=== PATIENT | female | born 1940 | race Caucasian/White ===

== ENCOUNTER → 2017-05-06 | Outpatient (CLI) | payer MEDICARE, BC ==
--- NOTE | 2017-05-06 15:45 | US ---
EXAMINATION TYPE: US kidneys/renal and bladder DATE OF EXAM: 05/06/2017 COMPARISON: NONE CLINICAL HISTORY: R94.4 Abnormal Renal Function. Difficult exam due to overlying bowel gas EXAM MEASUREMENTS: Right Kidney: 8.6 x 3.9 x 4.5 cm Left Kidney: 8.8 x 4.4 x 3.8 cm Right Kidney: Somewhat diminutive in size. No hydronephrosis. Multiple hypoechoic areas visualized, l argest measuring 1.1 x 1.3 x 1.1 cm Left Kidney: Diminutive in size. No hydronephrosis. Multiple hypoechoic areas visualized, largest jayjay suring 1.8 x 1.8 x 2.0 cm Bladder: wnl Bilateral Jets seen: Yes IMPRESSION: 1. Kidneys are somewhat diminutive in size with no hydronephrosis or nephrolithiasis. 2. Multiple hypoechoic lesions bilaterally majority which are too small to characterize. The largest measures 1.8 cm involving the left kidney compatible with a simple cyst.
== END | disposition home or self-care (01) ==
LOC: RADUSWWP 14:14
PROVIDERS: ATTEND Internal Medicine Hematology & Oncology
DX: N28.89 Other specified disorders of kidney and ureter (principal); R94.4 Abnormal results of kidney function studies
CPT/HCPCS: 76770

== ENCOUNTER 2022-06-23 11:16 | Day surgery (SDC) | payer MEDICARE ==
[2022-06-19 09:32] VITALS: BMI 24.2
[~2022-06-23 11:16] MED LIST: LACTATED RINGERS 1,000 ML IV SCH
[2022-06-23 11:54] VITALS: TEMP 97.8
[2022-06-23] MEDS ORDERED: PROPOFOL 10 MG/ML 20 ML VIAL IV ONE (12:05)
[2022-06-23 13:17] VITALS: BP 130/61; PULSE 62; RESP 18
[2022-06-23 13:32] LABS: Basophils # (A) 0.1 k/uL (0-0.2); Basophils % (A) 1 %; Eosinophils # (A) 0.2 k/uL (0-0.7); Eosinophils % (A) 3 %; HCT 41.7 % (34.0-46.0); HGB 13.8 gm/dL (11.4-16.0); Lymphocytes # (A) 1.8 k/uL (1.0-4.8); Lymphocytes % (A) 25 %; MCH 31.9 pg (25.0-35.0); MCHC 33.1 g/dL (31.0-37.0); MCV 96.3 fL (80.0-100.0); Mean Platelet Volume 8.5; Monocytes # (A) 0.6 k/uL (0-1.0); Monocytes % (A) 9 %; Neutrophils # (A) 4.2 k/uL (1.3-7.7); Neutrophils % (A) 60 %; Platelet Count 261 k/uL (150-450); RBC 4.32 m/uL (3.80-5.40); RDW 15.3 % (11.5-15.5); Reticulocyte % 1.3 % (0.5-2.0)
--- NOTE | 2022-06-23 20:19 | OP ---
OPERATIVE REPORT DATE OF SERVICE : 06/23/2022 PROCEDURE PERFORMED: Bone marrow aspirate and biopsy. INDICATION: The patient is known to have multiple myeloma, is to evaluate for minimum residual disease. DESCRIPTION OF PROCEDURE: After obtaining informed consent from the patient, the procedure was performed in the endoscopy suite under general anesthesia performed by anesthesia team. The patient was put in the left lateral decubitus position. The right posterior superior iliac crest was localized. The skin was cleansed with ChloraPrep, all sterile procedures were followed. 2 mL of 2% Xylocaine was used for local anesthetic. Monoject needle was inserted, about 20 mL aspirate and 2 cm core biopsy was obtained without any difficulties. Pressure applied afterwards. There was negligible blood loss. The patient tolerated the procedure very well without any immediate complications. MMODL / IJN: [id number] /
== END 2022-06-23 13:20 | disposition home or self-care (01) ==
LOC: OR 11:16
PROVIDERS: ATTEND Internal Medicine Hematology & Oncology
DX: C90.00 Multiple myeloma not having achieved remission (principal); I48.91 Unspecified atrial fibrillation; E03.9 Hypothyroidism, unspecified; D64.9 Anemia, unspecified; Z79.01 Long term (current) use of anticoagulants; Z79.899 Other long term (current) drug therapy; Z98.51 Tubal ligation status; Z98.890 Other specified postprocedural states; Z80.8 Family history of malignant neoplasm of other organs or systems; Z87.891 Personal history of nicotine dependence; Z71.89 Other specified counseling
CPT/HCPCS: 85025; 85045; 38222; J2704

== ENCOUNTER → 2022-08-08 | Outpatient (CLI) | payer MEDICARE ==
--- NOTE | 2022-08-08 15:44 | MR ---
EXAMINATION TYPE: MR brain wo con DATE OF EXAM: 08/08/2022 COMPARISON: NONE HISTORY: LUNG CA JULY 2022 TECHNIQUE: Multiplanar, multisequence imaging of the brain and brainstem is performed without IV cont rast. FINDINGS: Diffusion weighted images demonstrate no evidence of a recent infarct or other diffusion abnormality. There is mild to moderate ventricular and sulcal prominence. Some confluent areas of T2 hyperintense signal seen in the periventricular white matter. Old infarct left cerebellar hemisphere axial image 7 inferiorly is noted. Midline structures demonstrate normal morphology. The craniocervical junction appears within normal limits. Normal vascular flow voids are present. The visualized sinuses are clear and the globes are i ntact. Nasal septum is deviated to left of midline. IMPRESSION: No obvious focal T2 hyperintense focus or edema to suggest larger metastatic lesion to th e brain. Suboptimal without IV contrast. [id number] diffuse cerebral atrophy and mild chronic s mall vessel ischemic change is identified. 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
== END | disposition home or self-care (01) ==
LOC: RADMRIMAIN 14:16
PROVIDERS: ATTEND Internal Medicine Hematology & Oncology
DX: C34.31 Malignant neoplasm of lower lobe, right bronchus or lung (principal); G31.9 Degenerative disease of nervous system, unspecified; I67.82 Cerebral ischemia; Z86.73 Personal history of transient ischemic attack (TIA), and cerebral infarction without residual deficits
CPT/HCPCS: 70551

== ENCOUNTER → 2022-09-11 | Outpatient (CLI) | payer MEDICARE ==
--- NOTE | 2022-09-11 16:12 | XR ---
EXAMINATION TYPE: XR chest 2V DATE OF EXAM: 09/11/2022 COMPARISON: 07/22/2010, 09/01/2022 HISTORY: 82-year-old female J90, pleural effusion TECHNIQUE: PA and lateral views FINDINGS: The large right sided joint effusion. This seems to have some mass effect on to the heart with left s hift. Remainder of the lungs appear clear. Right heart margin obscured and heart size cannot be accur ately assessed. IMPRESSION: Ongoing large right pleural effusion with some mass effect causing leftward cardiac shift.
== END | disposition home or self-care (01) ==
LOC: LABWHC1 10:11
PROVIDERS: ATTEND Thoracic Surgery (Cardiothoracic Vascular Surgery)
DX: J90 Pleural effusion, not elsewhere classified (principal)
CPT/HCPCS: 71046

== ENCOUNTER 2022-09-17 10:41 | Day surgery (SDC) | payer MEDICARE ==
[2022-09-12 12:06] VITALS: BMI 22.6
[~2022-09-17 10:41] MED LIST changes: +HYDROmorphone 0.5 MG/0.5 ML SYRINGE IVP PRN; +LIDOCAINE 1% (10MG/ML) FOR IV START INTRADERMA PRN; +ONDANSETRON 4 MG/2 ML VIAL IVP ONE
[2022-09-17 11:23] VITALS: TEMP 97.2
[2022-09-17] MEDS ORDERED: KETAMINE 10 MG/ML 20 ML VIAL ONE (13:01)
[2022-09-17] MEDS ORDERED: fentaNYL (PF) 50 MCG/ML 2 ML AMP ONE (13:01)
[2022-09-17] MEDS ORDERED: MIDAZOLAM 2 MG/2 ML VIAL ONE (13:01)
[2022-09-17] MEDS ORDERED: PROPOFOL 10 MG/ML 20 ML VIAL IV ONE (13:01)
[2022-09-17] MEDS ORDERED: LIDOCAINE 1% INJ 10MG/ML (20 ML MDV) SQ ONE ×2 (13:16)
[2022-09-17 13:49] VITALS: RESP 12
--- NOTE | 2022-09-17 14:10 | XR ---
EXAMINATION TYPE: XR chest 1V portable DATE OF EXAM: 09/17/2022 2:02 PM COMPARISON: Chest radiographs from 09/11/2022 TECHNIQUE: XR chest 1V portable Frontal view of the chest. CLINICAL INDICATION:Female, 82 years old with history of Pleural Catheter placement; FINDINGS: Lungs/Pleura: There is no evidence of pleural effusion, focal consolidation, or pneumothorax. Pulmonary vascularity: Unremarkable. Heart/mediastinum: Cardiomediastinal silhouette is enlarged and stable. Atherosclerotic calcificatio ns are seen in the aorta. Musculoskeletal: No acute osseous pathology. Other findings: None Lines/Tubes: Right thoracotomy tube is present with evidence of pneumothorax and pleural effusion. There is atelec tasis changes.. IMPRESSION: New Moderate right pleural effusion with pneumothorax. Chest tube in place.
--- NOTE | 2022-09-17 14:13 | FL ---
Intraoperative/procedural fluoroscopic services were provided. Total fluoroscopy time is 2 seconds wi th a total of 2 submitted images to PACS. Please see the operative/procedural note for further detail s. DAP: 0.1828 mGym2
[2022-09-17 14:41] VITALS: BP 121/63; PULSE 73
--- NOTE | 2022-09-17 15:37 | P.OP ---
Date of Procedure: 09/17/22 Preoperative Diagnosis: Recurrent pleural effusion right Postoperative Diagnosis: Same Procedure(s) Performed: Right Pleurx catheter placement with fluoroscopy Implants: Pleurx catheter Anesthesia: MAC Surgeon: Michael Wagoner Estimated Blood Loss (ml): 2 Pathology: none sent Condition: stable Disposition: PACU Indications for Procedure: 82-year-old female with recurrent right pleural effusion. 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 He was recently drained for over a liter of fluid at [facility]. Her fluid has recurred. She is not yet severely symptomatic. Elective Pleurx catheter was recommended for symptom control, palliation and treatment of recurrent pleural effusion. Operative Findings: 1800 mL of serosanguineous fluid was drained. Description of Procedure: Patient was brought to the operating room placed supine on the operating table. The right chest was sterilely prepped and draped. One percent lidocaine anesthesia was used. Right pleural space was punctured with a 18-gauge needle and guidewire threaded into the right pleural space under fluoroscopic guidance. This site was enlarged to just over a centimeter. Counterincision was made in the right upper quadrant less than a centimeter. Pleurx catheter was tunneled from the right upper quadrant incision to the chest incision and the cuff was secured under the skin by the exit site. Introducer and dilator were placed over the wire under fluoroscopic visualization through the entry site. Dilator and guidewire were removed and the purse catheter was threaded into the chest t hrough the introducer sheath. The introducer sheath was then split and removed. Fluoroscopy demonstrated good positioning of the Pleurx catheter in the right pleural space. Purse catheter was connected to suction. Entry site was closed with 4-0 Vicryl and skin glue. Purse catheter was secured at the exit site with 2-0 silk suture. On completion of evacuation of the fluid, Pleurx catheter was disconnected from suction and capped. Standard Pleurx dressing was placed. Fluoroscopy demonstrated complete clearance of fluid however the right lower lobe was trapped and there was a basilar pneumothorax ex-vacuo.
== END 2022-09-17 14:54 | disposition home health service (06) ==
LOC: OR 10:41
PROVIDERS: ATTEND Thoracic Surgery (Cardiothoracic Vascular Surgery)
DX: J90 Pleural effusion, not elsewhere classified (principal); I12.9 Hypertensive chronic kidney disease with stage 1 through stage 4 chronic kidney disease, or unspecified chronic kidney disease; N18.4 Chronic kidney disease, stage 4 (severe); I48.91 Unspecified atrial fibrillation; E78.5 Hyperlipidemia, unspecified; E03.9 Hypothyroidism, unspecified; Z87.891 Personal history of nicotine dependence; Z98.890 Other specified postprocedural states; Z79.899 Other long term (current) drug therapy
CPT/HCPCS: 71045; 32551; J2250; J2405; J0690; J2001; J3010; J2704

== ENCOUNTER 2022-11-11 09:27 | Inpatient (IN) | payer MEDICARE ==
[2022-11-11] MEDS ORDERED: MORPHINE SULFATE 2 MG/ML SYRINGE IVP STA (09:54)
[2022-11-11 10:23] LABS: Basophils # (A) 0.1 k/uL (0-0.2); Basophils % (A) 1 %; Eosinophils % (A) 0 %; HCT 32.3 % (34.0-46.0); HGB 10.1 gm/dL (11.4-16.0); Hypochromasia Moderate; Lymphocytes # (A) 0.5 k/uL (1.0-4.8); Lymphocytes % (A) 5 %; MCH 29.9 pg (25.0-35.0); MCHC 31.3 g/dL (31.0-37.0); MCV 95.5 fL (80.0-100.0); Mean Platelet Volume 7.3; Monocytes # (A) 0.5 k/uL (0-1.0); Monocytes % (A) 5 %; Neutrophils # (A) 9.3 k/uL (1.3-7.7); Neutrophils % (A) 89 %; Platelet Count 438 k/uL (150-450); RBC 3.39 m/uL (3.80-5.40); RDW 14.7 % (11.5-15.5); WBC 10.4 k/uL (3.8-10.6)
[2022-11-11 10:28] LABS: ALT 22 U/L (4-34); AST 31 U/L (14-36); African American GFR (CKD) 41 (>60 ml/min/1.73 sqM); Albumin 3.6 g/dL (3.5-5.0); Alkaline Phosphatase 66 U/L (38-126); Anion Gap 9 mmol/L; Blood Urea Nitrogen 35 mg/dL (7-17); Calcium 9.2 mg/dL (8.4-10.2); Carbon Dioxide 25 mmol/L (22-30); Chloride 102 mmol/L (98-107); Glucose 123 mg/dL (74-99); Non-African American GFR(CKD) 36 (>60 ml/min/1.73 sqM); Potassium 4.9 mmol/L (3.5-5.1); Sodium 136 mmol/L (137-145); Total Bilirubin 0.6 mg/dL (0.2-1.3); Total Protein 7.2 g/dL (6.3-8.2)
[2022-11-11 10:34] LABS: INR 1.1 (<1.2); Partial Thromboplastin Time 26.2 sec (22.0-30.0); Prothrombin Time 11.2 sec (9.0-12.0)
[2022-11-11 10:36] LABS: NT-Pro-B-Type Natriuretic Pept 12200 pg/mL
--- NOTE | 2022-11-11 10:43 | XR ---
EXAMINATION TYPE: XR chest 2V DATE OF EXAM: 11/11/2022 COMPARISON: 09/17/2022 HISTORY: Shortness of breath TECHNIQUE: Frontal and lateral views of the chest are obtained. FINDINGS: Scattered senescent parenchymal changes noted. Hyperinflation compatible with COPD. Right-sided chest tube is noted to be in place. Right basilar opacity with air-fluid level seen sharonda tible with hydropneumothorax. Right apical hydropneumothorax noted as well. The left lung is clear. Heart size is stable. Mediastinal structures are stable and grossly unremarkable. No evidence for hilar prominence. Degenerative changes dorsal spine. IMPRESSION: 1. . Right basilar opacity with air-fluid level seen compatible with hydropneumothorax. Right apical hydropneumothorax noted as well.
[2022-11-11] MEDS ORDERED: NALOXONE 0.4 MG/ML 1 ML VIAL IV PRN (11:22)
--- NOTE | 2022-11-11 11:25 | ED ---
General Adult HPI - General Chief complaint: Chest Pain Stated complaint: Chest Pain Time Seen by Provider: 11/11/22 09:44 Source: patient Mode of arrival: EMS Limitations: no limitations - History of Present Illness Initial comments: Patient is a 82-year-old female who presents emergency Department complaining of atypical chest pain. States started this morning and was associated with shortness of breath. 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 Is chronically on blood thinning medication for A. fib. Has a history of hypertension as well. Describes the pain as substernal a right sided and pressure-like. Worse with inspiration. States she feels like she can't catch her breath. States is identical pain is when she required thoracentesis previously. She did have a thoracentesis done outpatient tomorrow however did not think she could wait which is why she presents for evaluation at this time. Has no other acute complaints. - Related Data Home Medications Medication Instructions Recorded Confirmed Apixaban [Eliquis] 5 mg PO BID 06/19/22 11/11/22 Calcium Citrate/Vitamin D3 1 tab PO DAILY 06/19/22 11/11/22 [Calcium Cit 315-Vit D3 6.25 Mcg (250 Iu)] Cholecalciferol [Vitamin D3 (25 25 mcg PO DAILY 06/19/22 11/11/22 Mcg = 1000 Iu)] Cyanocobalamin (Vitamin B-12) 1,000 mcg PO DAILY 06/19/22 11/11/22 [Vitamin B-12] Levothyroxine Sodium [Synthroid] 150 mcg PO DAILY 06/19/22 11/11/22 Magnesium Oxide [Mag-Ox] 400 mg PO BID 06/19/22 11/11/22 Multivit-Min/Iron/Folic/Lutein 1 tab PO DAILY 06/19/22 11/11/22 [Centrum Silver Women Tablet] Simvastatin [Zocor] 10 mg PO Q48H 06/19/22 11/11/22 Sodium Bicarbonate Tab 650 mg PO DAILY 06/19/22 11/11/22 amLODIPine [Norvasc] 10 mg PO DAILY 06/19/22 11/11/22 calcitrioL [Calcitriol] 0.5 mcg PO SUTH 06/19/22 11/11/22 Albuterol Sulfate [Albuterol 2 puff PO RT-Q6H PRN 11/11/22 11/11/22 Sulfate Hfa] Betamethasone Dipropionate 1 applic TOPICAL BID 11/11/22 11/11/22 [Diprolene AF 0.05% Cream] Mv-Mn/Om3/Dha/Epa/Fish/Lut/Isaiah 1 cap PO DAILY 11/11/22 11/11/22 [Ocuvite Adult 50 Plus Softgel] Pembrolizumab [Keytruda] 200 mg IV Q21D 11/11/22 11/11/22 Allergies Allergy/AdvReac Type Severity Reaction Status Date / Time No Known Allergies Allergy Verified 11/11/22 09:34 Review of Systems ROS Statement: Those systems with pertinent positive or pertinent negative responses have been documented in the HPI. Review of Systems: CONST: Denies fever EYES: Denies blurry vision ENT: Denies nasal congestion C/V: Endorses chest discomfort RESP: Endorses shortness of breath GI: Denies abdominal pain : Denies dysuria SKIN: Denies rash. MSK: Denies joint pain. NEURO: Denies headache ROS Other: All systems not noted in ROS Statement are negative. 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 History of Any Multi-Drug Resistant Organisms: None Reported Past Surgical History: Tubal Ligation Additional Past Surgical History / Comment(s): RIGHT ANKLE FX SURGERY WITH HARDWARE, CATARACTS, BONE MARROW BX'S .,STEM CELL TRANSPLANT 2010., THORACENTESIS X2 Past Anesthesia/Blood Transfusion Reactions: No Reported Reaction Past Psychological History: No Psychological Hx Reported Smoking Status: Former smoker Past Alcohol Use History: Occasional Past Drug Use History: None Reported - Past Family History Father Family Medical History: Cancer Additional Family Medical History / Comment(s): LUNG CANCER General Exam - General Exam Comments Initial Comments: General: Appears in no acute distress. HEAD: Normal with no signs of head trauma. EYES: PERRLA, EOMI, conjunctiva normal, no discharge. ENT: Hearing grossly intact, normal oropharynx. RESPIRATORY: Decreased breath sounds over the right inferior lung field. No obvious wheeze. No respiratory distress. Mild hypoxia. C/V: Regular rate and rhythm. S1 and S2 auscultated, no edema, peripheral pulses 2+ and intact throughout ABD: Abd is soft, nontender, nondistended EXT: Normal range of motion, no obvious deformity SKIN: No rashes or lesions observed on exposed skin. NEURO: Alert and oriented x 4. Cranial nerves II-XII intact. No focal sensory or strength deficits. Limitations: no limitations Course Vital Signs 11/11/22 11/11/22 11/11/22 09:31 10:00 10:19 Temperature 98.1 F Pulse Rate 98 76 84 Respiratory 18 17 18 Rate Blood Pressure 117/62 117/62 110/67 O2 Sat by Pulse 93 L 98 95 Oximetry 11/11/22 12:00 Temperature Pulse Rate 93 Respiratory 13 Rate Blood Pressure 94/64 O2 Sat by Pulse 97 Oximetry Medical Decision Making - Medical Decision Making Was pt. sent in by a medical professional or institution (, PA, ASSISTANT CUSTOMER SERVICE MANAGER, urgent ca re, hospital, or residential...) When possible be specific @ -No Did you speak to anyone other than the patient for history (EMS, parent, family, police, friend...)? What history was obtained from this source @ -No Did you review nursing and triage notes (agree or disagree)? Why? @ -I reviewed and agree with nursing and triage notes Were old charts reviewed (outside hosp., previous admission, EMS record, old EKG, old radiological studies, urgent care reports/EKG's, residential records)? Report findings @ -Old charts reviewed including imaging. Differential Diagnosis (chest pain, altered mental status, abdominal pain women, abdominal pain men, vaginal bleeding, weakness, fever, dyspnea, syncope, headache, dizziness, GI bleed, back pain, seizure, CVA, palpatations, mental health, musculoskeletal)? @ -Differential Chest Pain: Stable Angina, Unstable Angina, STEMI, NSTEMI Aortic Dissection, Pneumothorax, Musculoskeletal, Esophageal Spasm GERD, Cholecystitis, Pancreatitis, Zoster, this is not meant to be an all-inclusive list. EKG interpreted by me (3pts min.). @ -As above X-rays interpreted by me (1pt min.). @ -Chest x-ray reveals a right basilar opacity with air fluid level similar to previous hydropneumothorax. Radiology also sees a right apical hydropneumothorax. All seems to be chronic from a known pleural catheter and effusion likely from cancer. CT interpreted by me (1pt min.). @ -CT thorax without contrast reveals a right-sided pleural effusion with some gas present likely secondary to food With the resident. Cannot rule out empyema. U/S interpreted by me (1pt. min.). @ -None done What testing was considered but not performed or refused? (CT, X-rays, U/S, labs)? Why? @ -None What meds were considered but not given or refused? Why? @ -None Did you discuss the management of the patient with other professionals (catherine mirza i.e. , PA, ASSISTANT CUSTOMER SERVICE MANAGER, lab, RT, psych nurse, social welfare clerk, resolution manager, teacher, preventive medicine officer, clinical case manager)? Give summary @ -Yes, discussed with initial admitting team doctor Laron as we are told was off. However Dr. Milligan was not off and I spoke with him and he was in agreement to pain and requested a consult to pulmonology additional to CT surgery. I spoke with CT surgery MLP Paula Garcia as well as who presented at bedside multiple times. They do not believe it is an empyema but rather just septations we will attempt to break it up while here to drain the fluid. They agree this is all likely secondary to her fluid accumulation. Initially recommended antibiotics but at this time believe that they are not required. Was smoking cessation discussed for >3mins.? @ -No Was critical care preformed (if so, how long)? @ -Yes, 35 minutes. Were there social determinants of health that impacted care today? How? (Homelessness, low income, unemployed, alcoholism, drug addiction, transportation, low edu. Level, literacy, decrease access to med. care, halfway, rehab)? @ -No Was there de-escalation of care discussed even if they declined (Discuss DNR or withdrawal of care, Hospice)? DNR status @ -No What co-morbidities impacted this encounter? (DM, HTN, Smoking, COPD, CAD, Cance r, CVA, ARF, Chemo, Hep., AIDS, mental health diagnosis, sleep apnea, morbid obesity)? @ -Cancer, recurrent right-sided pleural effusion Was patient admitted / discharged? Hospital course, mention meds given and route, prescriptions, significant lab abnormalities, going to OR and other pertinent info. @ -Based on the patient's presentation and physical exam, presents with chest pain. Likely related to known recurrent pleural effusion. Does have a drainage catheter in place. Mildly hypoxic. We will obtain chronic pulmonary workup. She was in agreement this plan. She'll be given analgesia medications as well. Patient's imaging shows the reoccurrence of the right sided pleural effusion with some air present likely from the known catheter in place. Labs are remarkable for a mild anemia with hemoglobin of 10. Troponin is undetectable. BNP is elevated likely secondary to the pleural effusion. EKG showed no signs of acute ischemia. At this time, after multiple conversations with CT surgery and I'm presenting at bedside, and buttocks which were initially ordered for the patient for possible empyema were canceled. CT surgery will work on draining the pleural effusion. Were in agreement with the plan for admission. We will also monitor the patient's troponins while she is here. She was in agreement this plan. Reid malhotra admitted [facility] as result thought they were covering for Dr. milligan who per our records was off however Dr. Milligan is back and admission was changed to him. He accepted the patient. Undiagnosed new problem with uncertain prognosis? @ -No Drug Therapy requiring intensive monitoring for toxicity (Heparin, Nitro, Insulin, Cardizem)? @ -No Were any procedures done? @ -No Diagnosis/symptom? @ -Chest pain, dyspnea, recurrent right pleural effusion Acute, or Chronic, or Acute on Chronic? @ -Acute on chronic Uncomplicated (without systemic symptoms) or Complicated (systemic symptoms)? @ -Complicated Side effects of treatment? @ -No Exacerbation, Progression, or Severe Exacerbation? @ -No Poses a threat to life or bodily function? How? (Chest pain, USA, NM, pneumonia, PE, COPD, DKA, ARF, appy, cholecystitis, CVA, Diverticulitis, Homicidal, Suicidal, threat to staff... and all critical care pts) @ -Yes - Lab Data Result diagrams: 11/11/22 10:18 11/11/22 10:18 Lab Results 11/11/22 11/11/22 11/11/22 Range/Units 10:18 10:18 10:18 WBC 10.4 (3.8-10.6) k/uL RBC 3.39 L (3.80-5.40) m/uL Hgb 10.1 L (11.4-16.0) gm/dL Hct 32.3 L (34.0-46.0) % MCV 95.5 (80.0-100.0) fL MCH 29.9 (25.0-35.0) pg MCHC 31.3 (31.0-37.0) g/dL RDW 14.7 (11.5-15.5) % Plt Count 438 (150-450) k/uL MPV 7.3 Neutrophils % 89 % Lymphocytes % 5 % Monocytes % 5 % Eosinophils % 0 % Basophils % 1 % Neutrophils # 9.3 H (1.3-7.7) k/uL Lymphocytes # 0.5 L (1.0-4.8) k/uL Monocytes # 0.5 (0-1.0) k/uL Eosinophils # 0.0 (0-0.7) k/uL Basophils # 0.1 (0-0.2) k/uL Hypochromasia Moderate PT 11.2 (9.0-12.0) sec INR 1.1 (<1.2) APTT 26.2 (22.0-30.0) sec Sodium 136 L (137-145) mmol/L Potassium 4.9 (3.5-5.1) mmol/L Chloride 102 (98-107) mmol/L Carbon Dioxide 25 (22-30) mmol/L Anion Gap 9 mmol/L BUN 35 H (7-17) mg/dL Creatinine 1.40 H (0.52-1.04) mg/dL Est GFR (CKD-EPI)AfAm 41 (>60 ml/min/1.73 sqM) Est GFR (CKD-EPI)NonAf 36 (>60 ml/min/1.73 sqM) Glucose 123 H (74-99) mg/dL Calcium 9.2 (8.4-10.2) mg/dL Magnesium 2.0 (1.6-2.3) mg/dL Total Bilirubin 0.6 (0.2-1.3) mg/dL AST 31 (14-36) U/L ALT 22 (4-34) U/L Alkaline Phosphatase 66 (38-126) U/L Troponin I (0.000-0.034) ng/mL NT-Pro-B Natriuret Pep 32752 pg/mL Total Protein 7.2 (6.3-8.2) g/dL Albumin 3.6 (3.5-5.0) g/dL 11/11/22 Range/Units 10:18 WBC (3.8-10.6) k/uL RBC (3.80-5.40) m/uL Hgb (11.4-16.0) gm/dL Hct (34.0-46.0) % MCV (80.0-100.0) fL MCH (25.0-35.0) pg MCHC (31.0-37.0) g/dL RDW (11.5-15.5) % Plt Count (150-450) k/uL MPV Neutrophils % % Lymphocytes % % Monocytes % % Eosinophils % % Basophils % % Neutrophils # (1.3-7.7) k/uL Lymphocytes # (1.0-4.8) k/uL Monocytes # (0-1.0) k/uL Eosinophils # (0-0.7) k/uL Basophils # (0-0.2) k/uL Hypochromasia PT (9.0-12.0) sec INR (<1.2) APTT (22.0-30.0) sec Sodium (137-145) mmol/L Potassium (3.5-5.1) mmol/L Chloride (98-107) mmol/L Carbon Dioxide (22-30) mmol/L Anion Gap mmol/L BUN (7-17) mg/dL Creatinine (0.52-1.04) mg/dL Est GFR (CKD-EPI)AfAm (>60 ml/min/1.73 sqM) Est GFR (CKD-EPI)NonAf (>60 ml/min/1.73 sqM) Glucose (74-99) mg/dL Calcium (8.4-10.2) mg/dL Magnesium (1.6-2.3) mg/dL Total Bilirubin (0.2-1.3) mg/dL AST (14-36) U/L ALT (4-34) U/L Alkaline Phosphatase (38-126) U/L Troponin I <0.012 (0.000-0.034) ng/mL NT-Pro-B Natriuret Pep pg/mL Total Protein (6.3-8.2) g/dL Albumin (3.5-5.0) g/dL - EKG Data -: EKG Interpreted by Me EKG Comments: 12-lead Electrocardiogram Interpretation Note EKG was reviewed and interpreted by myself. 12-lead ECG performed at 0937 is interpreted by me as revealing atrial fibrillation at a rate of 86 beats per minute. [place] is normal. QRS duration is 105 ms, QTc is 428 ms.. There were no ST or T wave abnormalities to suggest myocardial ischemia or injury. R wave progression across the precordium was satisfactory. By my interpretation this EKG is non-diagnostic for acute ischemia. Disposition Clinical Impression: Atypical chest pain, Pleural effusion, Dyspnea Disposition: ADMITTED IP TO THIS HOSP Condition: Stable Time of Disposition: 11:18
--- NOTE | 2022-11-11 12:49 | CT ---
EXAMINATION TYPE: CT chest wo con CT DLP: 229.7 mGycm, Automated exposure control for dose reduction was used. DATE OF EXAM: 11/11/2022 12:38 PM COMPARISON: Chest radiograph from 11/11/2022 CLINICAL INDICATION:Female, 82 years old with history of pleural effusion, eval for proper catheter p lacement; PHH, pleural effusion, eval for proper catheter placement TECHNIQUE: Multiple axial images were obtained through the chest without IV contrast. Lack of IV or o ral contrast limits evaluation of solid and hollow organ viscera. . Coronal and sagittal reformats re viewed. FINDINGS: LUNGS/ PLEURA: Left lung is relatively clear. Moderate size right pleural effusion with surrounding t hick wall and foci of gas and increased densities. There is atelectasis of the right middle and lower lung. Small right apical pneumothorax. Right pleural catheter is identified with tip along the poste rior medial margin of the pleural space. AIRWAY: Patent and unremarkable.. HEART: Enlarged. Trace pericardial effusion. Moderate coronary artery calcifications. MEDIASTINUM: Few mildly prominent lymph nodes. VASCULATURE: No aortic aneurysm. Atherosclerotic calcification of the aorta and its branches. Dilate d main pulmonary measuring up to 3.4 cm. MUSCULOSKELETAL: No acute osseous abnormalities chronic appearing central compression of pars versus Schmorl's nodes involving the L1 and L3 vertebral bodies. Moderate multilevel degenerative disc disea se of the thoracic spine. S-shaped scoliotic curvature. SOFT TISSUES/LYMPH NODES: Unremarkable. LOWER NECK: No significant findings. UPPER ABDOMEN: Exophytic left renal cyst measuring up to 2.9 cm. IMPRESSION: 1. Moderate size right pleural effusion with thick wall and foci of gas suggestive of an empyema. Rig ht pleural catheter appears to be in appropriate position. There is increased density suggesting poss ible septations. Small right apical pneumothorax. Associated atelectasis of the right middle and lowe r lobes. 2. Mild cardiomegaly with trace pericardial effusion. 3. Dilated main pulmonary artery which can be seen in the setting of pulmonary arterial hypertension. 4. Few mildly prominent lymph nodes likely reactive to #1.
[2022-11-11] MEDS ORDERED: KETOROLAC 15 MG/ML 1 ML VIAL IVP STA (13:39)
[2022-11-11] MEDS ORDERED: NON FORMULARY DRUG (Pembrolizumab [Keytruda] 100 MG/4 ML Each) IV SCH (13:45)
[2022-11-11] MEDS ORDERED: VANCOMYCIN IV PER PHARMACY 1 EACH MISC MISCELLANE PRN (13:58)
[2022-11-11] MEDS ORDERED: VANCOMYCIN 1,000 MG in SODIUM CHLORIDE 0.9% 250 ML IVPB STA (14:01)
[2022-11-11] MEDS ORDERED: PNEUMONIA PROTOCOL UTILIZED 1 EACH MISC PO PRN (14:17)
[2022-11-11] MEDS ORDERED: ACETAMINOPHEN TAB 325 MG TAB PO PRN (14:19)
[2022-11-11] MEDS ORDERED: ONDANSETRON 4 MG/2 ML VIAL IVP PRN (14:19)
[2022-11-11] MEDS ORDERED: fentaNYL (PF) 50 MCG/ML 2 ML AMP IVP STA (14:21)
--- NOTE | 2022-11-11 14:30 | P.GSCN ---
History of Present Illness Consult date: 11/11/22 Reason for Consult: Right-sided recurrent pleural effusion Requesting physician: Franck Cade History of present illness: This is an 82-year-old female who follows outpatient with Dr. France for primary care, Dr. Kaur for pulmonology, and Dr. Fisher for oncology. She has a history of metastatic lung cancer (adenocarcinoma) maintained on Keytruda with recurrent malignant right-sided pleural effusion status post thoracentesis as well as placement of Pleurx catheter, multiple myeloma (2009), stem cell transp lant (2010), previous tobacco dependence, chronic atrial fibrillation on Eliquis for anticoagulation, hypertension, hyperlipidemia, hypothyroid, and chronic kidney disease. She had a right-sided Pleurx catheter placed 09/09/[address] Wagoner for recurrent malignant pleural effusion, and has been draining at home, last Pleurx catheter drain was over a week ago per the patient. Unfortunately she developed chest pressure and shortness of breath in the last 24 hours and presented to the hospital this morning for evaluation and treatment. Chest x- ray demonstrated right basilar opacity with air fluid levels seen compatible with hydropneumothorax. Lab work revealed WBC 10.4, hemoglobin 10.1, creatinine 1.4, BNP 12,200, and negative troponin 2. Vital signs are stable, she remained afebrile, and oxygen saturation remained in the mid to high 90s on room air. Cardiothoracic surgery was called to drain right-sided Pleurx catheter as patient was scheduled to have homecare out to the house tomorrow for drainage. Attempted to drain right-sided Pleurx catheter, however there was only minimal fluid able to be removed. CT of the chest was ordered which demonstrated a moderate right-sided pleural effusion with thick wall and foci of gas suggestive of empyema, increased density suggesting possible septations. The patient is to be admitted for evaluation and treatment with consultation placed to cardiothoracic surgery. Review of Systems Review of systems was completed and was negative except as noted - Cardiovascular Reports as per HPI, Reports chest pain, Reports shortness of breath - Integumentary Reports color changes 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., BASAL CELL SKIN CANCER., STATES "LOW KIDNEY FUNCTION"., RIGHT PLEURAL EFFUSION WITH THORACENTESIS X2. History of Any Multi-Drug Resistant Organisms: None Reported Past Surgical History: Tubal Ligation Additional Past Surgical History / Comment(s): RIGHT ANKLE FX SURGERY WITH [employer] RDW[employer], CATARACTS, BONE MARROW BX'S .,STEM CELL TRANSPLANT 2010., THORACENTESIS X2; right-sided Pleurx catheter placement August 2022 Past Anesthesia/Blood Transfusion Reactions: No Reported Reaction Past Psychological History: No Psychological Hx Reported Smoking Status: Former smoker Past Alcohol Use History: Occasional Past Drug Use History: None Reported - Past Family History Father Family Medical History: Cancer Additional Family Medical History / Comment(s): LUNG CANCER Medications and Allergies Home Medications Medication Instructions Recorded Confirmed Type Apixaban [Eliquis] 5 mg PO BID 06/19/22 11/11/22 History Calcium Citrate/Vitamin D3 1 tab PO DAILY 06/19/22 11/11/22 History [Calcium Cit 315-Vit D3 6.25 Mcg (250 Iu)] Cholecalciferol [Vitamin D3 (25 25 mcg PO DAILY 06/19/22 11/11/22 History Mcg = 1000 Iu)] Cyanocobalamin (Vitamin B-12) 1,000 mcg PO DAILY 06/19/22 11/11/22 History [Vitamin B-12] Levothyroxine Sodium [Synthroid] 150 mcg PO DAILY 06/19/22 11/11/22 History Magnesium Oxide [Mag-Ox] 400 mg PO BID 06/19/22 11/11/22 History Multivit-Min/Iron/Folic/Lutein 1 tab PO DAILY 06/19/22 11/11/22 History [Centrum Silver Women Tablet] Simvastatin [Zocor] 10 mg PO Q48H 06/19/22 11/11/22 History Sodium Bicarbonate Tab 650 mg PO DAILY 06/19/22 11/11/22 History amLODIPine [Norvasc] 10 mg PO DAILY 06/19/22 11/11/22 History calcitrioL [Calcitriol] 0.5 mcg PO SUTH 06/19/22 11/11/22 History Albuterol Sulfate [Albuterol 2 puff PO RT-Q6H PRN 11/11/22 11/11/22 History Sulfate Hfa] Betamethasone Dipropionate 1 applic TOPICAL BID 11/11/22 11/11/22 History [Diprolene AF 0.05% Cream] Mv-Mn/Om3/Dha/Epa/Fish/Lut/Isaiah 1 cap PO DAILY 11/11/22 11/11/22 History [Ocuvite Adult 50 Plus Softgel] Pembrolizumab [Keytruda] 200 mg IV Q21D 11/11/22 11/11/22 History Allergies Allergy/AdvReac Type Severity Reaction Status Date / Time No Known Allergies Allergy Verified 11/11/22 09:34 Surgical - Exam Vital Signs Temp Pulse Resp BP Pulse Ox 98.1 F 98 18 117/62 93 L 11/11/22 09:31 11/11/22 09:31 11/11/22 09:31 11/11/22 09:31 11/11/22 09:31 CONSTITUTIONAL: Awake and alert, appears comfortable, cooperative, well- developed, well-nourished, no pain, no acute distress EYES: Pupils equal, round, reactive to light, normal ocular movement ENT: Moist mucous membranes without oral lesions present NECK: No masses, no bruits, trachea midline RESPIRATORY: Lungs sounds diminished on the right. Respirations even, nonlabored. Currently on room air with oxygen saturation 97%. Strong cough CARDIOVASCULAR: S1, S2 present. Irregular rate and rhythm, controlled atrial fibrillation on telemetry. Palpable peripheral pulses bilaterally. No edema present GASTROINTESTINAL: Abdomen soft, nontender, nondistended without masses or organomegaly noted. There is no rebound or guarding present. Active bowel sounds present 4 quadrants. GENITOURINARY: Deferred INTEGUMENTARY: Skin is warm and dry, area of redness near Pleurx site extending out several inches around the Pleurx catheter NEUROLOGIC: Cranial nerves II through XII intact, normal coordination, no obvious motor or sensory deficits, speech is normal MUSKULOSKELETAL: Able to move all extremities, strength equal bilaterally, normal posture PSYCHIATRIC: Alert and oriented to person place and time, appropriate affect, intact judgment and insight Results - Labs 11/11/22 10:18 11/11/22 10:18 Abnormal Lab Results - Last 24 Hours (Table) 11/11/22 11/11/22 Range/Units 10:18 10:18 RBC 3.39 L (3.80-5.40) m/uL Hgb 10.1 L (11.4-16.0) gm/dL Hct 32.3 L (34.0-46.0) % Neutrophils # 9.3 H (1.3-7.7) k/uL Lymphocytes # 0.5 L (1.0-4.8) k/uL Sodium 136 L (137-145) mmol/L BUN 35 H (7-17) mg/dL Creatinine 1.40 H (0.52-1.04) mg/dL Glucose 123 H (74-99) mg/dL Diabetes panel 11/11/22 Range/Units 10:18 Sodium 136 L (137-145) mmol/L Potassium 4.9 (3.5-5.1) mmol/L Chloride 102 (98-107) mmol/L Carbon Dioxide 25 (22-30) mmol/L BUN 35 H (7-17) mg/dL Creatinine 1.40 H (0.52-1.04) mg/dL Glucose 123 H (74-99) mg/dL Calcium 9.2 (8.4-10.2) mg/dL AST 31 (14-36) U/L ALT 22 (4-34) U/L Alkaline Phosphatase 66 (38-126) U/L Total Protein 7.2 (6.3-8.2) g/dL Albumin 3.6 (3.5-5.0) g/dL Calcium panel 11/11/22 Range/Units 10:18 Calcium 9.2 (8.4-10.2) mg/dL Albumin 3.6 (3.5-5.0) g/dL Pituitary panel 11/11/22 Range/Units 10:18 Sodium 136 L (137-145) mmol/L Potassium 4.9 (3.5-5.1) mmol/L Chloride 102 (98-107) mmol/L Carbon Dioxide 25 (22-30) mmol/L BUN 35 H (7-17) mg/dL Creatinine 1.40 H (0.52-1.04) mg/dL Glucose 123 H (74-99) mg/dL Calcium 9.2 (8.4-10.2) mg/dL Adrenal panel 11/11/22 Range/Units 10:18 Sodium 136 L (137-145) mmol/L Potassium 4.9 (3.5-5.1) mmol/L Chloride 102 (98-107) mmol/L Carbon Dioxide 25 (22-30) mmol/L BUN 35 H (7-17) mg/dL Creatinine 1.40 H (0.52-1.04) mg/dL Glucose 123 H (74-99) mg/dL Calcium 9.2 (8.4-10.2) mg/dL Total Bilirubin 0.6 (0.2-1.3) mg/dL AST 31 (14-36) U/L ALT 22 (4-34) U/L Alkaline Phosphatase 66 (38-126) U/L Total Protein 7.2 (6.3-8.2) g/dL Albumin 3.6 (3.5-5.0) g/dL - Imaging Chest x-ray: report reviewed, image reviewed CT scan - chest: report reviewed, image reviewed Assessment and Plan Assessment: Moderate right-sided pleural effusion Increased shortness of breath, secondary to above Metastatic lung cancer (adenocarcinoma) maintained on Keytruda with recurrent malignant right-sided pleural effusion status post thoracentesis as well as placement of Pleurx catheter History of multiple myeloma (2009) History stem cell transplant (2010) Previous tobacco dependence Chronic atrial fibrillation on Eliquis for anticoagulation History of hypertension Hyperlipidemia Hypothyroid Chronic kidney disease Plan: The patient was seen and examined in the ER. Attempted to drain pleurx catheter but minimal drainage. Chart including CT were reviewed with Dr. Peña. CT findings are normal expected findings given pleurx catheter, there is no clinical indication for infection. Will attempt instillation of thrombolytics to break up septations and allow drainage to alleviate symptoms. Otherwise, no surgical intervention warranted. May be discharged to home whenever OK with internal medicine. Patient's daughter did ask for Dr. Fisher to see patient in hospital as patient missed her scheduled appointment with him today due to hospitalization. Message sent to oncology. Medical management of other comorbidities per internal medicine. Thank you for this consult. Please call us with any further questions. I have personally seen and examined the patient, performed the documentation and the assessment and plan as written. Number of minutes spent on the visit: 30. KAY Fernandes The patient was seen and examined at the bedside in the ER with the BOOTH SUPERVISOR. I agree with the documentation of the assessment and plan. Will instil lytics and connect pleurx to pleurovac overnight for drainage. No surgical intervention warranted. No clinical signs of infection, no antibiotics necessary. Number of minutes spent: [address] Miguelangel Peña MD
[2022-11-11] MEDS: SODIUM CHLORIDE 0.9% 1,000 ML IV SCH (14:32)
[2022-11-11] MEDS ORDERED: ALTEPLASE 10 MG in SODIUM CHLORIDE 0.9% 50 ML IRRIGATION ONE (15:00)
[2022-11-11] MEDS ORDERED: DORNASE ALFA 5 MG in SODIUM CHLORIDE 0.9% 50 ML IRRIGATION ONE (15:00)
[2022-11-11] MEDS ORDERED: diphenhydrAMINE 25 MG CAP PO PRN (15:21)
--- NOTE | 2022-11-11 15:49 | P.CONS ---
History of Present Illness - Reason for Consult Consult date: 11/11/22 metastatic NSCLC Requesting physician: Paula Garcia - Chief Complaint epigastric pain - History of Present Illness Patient is a very pleasant 82-year-old female patient of Dr. Fisher, diagnosed with IgG multiple myeloma 01/2010. She received induction treatment with Revlim id/Decadron, followed by autologous stem cell transplant August 2010. She was on maintenance Revlimid and has done well since. 06/23/22 bone marrow biopsy revealed no evidence of myeloma, normal cytogenetics. July/2022 she presented with significant shortness of breath, chest x-ray showed a right pleural effusion. CT chest 07/23/22 revealed a 1.9 cm right lower lobe lung mass, right pleural effusion. Diagnostic thoracentesis 07/28/22 positive for metastatic adenocarcinoma consistent with lung primary. MRI of the brain was negative. Staging PET scan showed suspicious uptake in the right perihilar region, mediastinal nodes and the right pleural effusion. No other Metastatic disease. She had Pleurx catheter placed for recurrent malignant pleural effusion. Liquid biopsy revealed TP 53 mutation. IKE, TMB 6.8/low, PDL 1 was 41%. 08/29/22 she started pembrolizumab, She has had 4 cycles. Restaging PET scan 11/10/22 did show some slight increases in SUV in known lesions, only one new lesion was found. Patient and family report less fluid when draining the right lung. Patient is in the emergency department secondary to an very irritating rash on the right flank, it is around the Pleurx catheter and it radiates to her flank, it "andersen" at times, she was given cream by the dough sheeter that did not significantly change to look for the feel of the rash, no other rash to report. She is also experiencing some pretty significant discomfort in the epigastric area, this radiates through to her back, this just started early this morning. She denies fevers, nausea, vomiting, chest pain, acute changes in bowel or bladder habits. She does not feel that her shortness of breath is necessarily worse then baseline, she is short of breath with exertion, she does use an assistive device to ambulate. CT of the chest showing a moderate right-sided pleural effusion with thick wall and foci of gas suggestive of an empyema. Pleural catheter appears to be in appropriate position. Increased densities suggesting possible septations. Small apical pneumothorax, some mild atelectasis of the right middle and right lower lobes. Mild cardiomegaly, trace pericardial effusion, dilated main pulmonary artery. CBC mild anemia hemoglobin 10.1, white blood cell count is normal the slight elevation of neutrophils at 9.3, coags are normal. BUN 35, creatinine 1.4, this is patient's baseline. BMP noted to be 12,200. Vital signs soft PPE, no tachycardia no tachypnea, satting adequately in the high 90s on room air, no fever. Review of Systems 10 point review of systems is negative except as stated in HPI 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., BASAL CELL SKIN CANCER., STATES "LOW KIDNEY FUNCTION"., RIGHT PLEURAL EFFUSION WITH THORACENTESIS X2. History of Any Multi-Drug Resistant Organisms: None Reported Past Surgical History: Tubal Ligation Additional Past Surgical History / Comment(s): RIGHT ANKLE FX SURGERY WITH HARDWARE, CATARACTS, BONE MARROW BX'S .,STEM CELL TRANSPLANT 2010., THORACENTESIS X2; right-sided Pleurx catheter placement August 2022 Past Anesthesia/Blood Transfusion Reactions: No Reported Reaction Past Psychological History: No Psychological Hx Reported Smoking Status: Former smoker Past Alcohol Use History: Occasional Past Drug Use History: None Reported - Past Family History Father Family Medical History: Cancer Additional Family Medical History / Comment(s): LUNG CANCER Medications and Allergies Home Medications Medication Instructions Recorded Confirmed Type Apixaban [Eliquis] 5 mg PO BID 06/19/22 11/11/22 History Calcium Citrate/Vitamin D3 1 tab PO DAILY 06/19/22 11/11/22 History [Calcium Cit 315-Vit D3 6.25 Mcg (250 Iu)] Cholecalciferol [Vitamin D3 (25 25 mcg PO DAILY 06/19/22 11/11/22 History Mcg = 1000 Iu)] Cyanocobalamin (Vitamin B-12) 1,000 mcg PO DAILY 06/19/22 11/11/22 History [Vitamin B-12] Levothyroxine Sodium [Synthroid] 150 mcg PO DAILY 06/19/22 11/11/22 History Magnesium Oxide [Mag-Ox] 400 mg PO BID 06/19/22 11/11/22 History Multivit-Min/Iron/Folic/Lutein 1 tab PO DAILY 06/19/22 11/11/22 History [Centrum Silver Women Tablet] Simvastatin [Zocor] 10 mg PO Q48H 06/19/22 11/11/22 History Sodium Bicarbonate Tab 650 mg PO DAILY 06/19/22 11/11/22 History amLODIPine [Norvasc] 10 mg PO DAILY 06/19/22 11/11/22 History calcitrioL [Calcitriol] 0.5 mcg PO SUTH 06/19/22 11/11/22 History Albuterol Sulfate [Albuterol 2 puff PO RT-Q6H PRN 11/11/22 11/11/22 History Sulfate Hfa] Betamethasone Dipropionate 1 applic TOPICAL BID 11/11/22 11/11/22 History [Diprolene AF 0.05% Cream] Mv-Mn/Om3/Dha/Epa/Fish/Lut/Isaiah 1 cap PO DAILY 11/11/22 11/11/22 History [Ocuvite Adult 50 Plus Softgel] Pembrolizumab [Keytruda] 200 mg IV Q21D 11/11/22 11/11/22 History Allergies Allergy/AdvReac Type Severity Reaction Status Date / Time No Known Allergies Allergy Verified 11/11/22 09:34 Physical Exam Vitals: Vital Signs Temp Pulse Resp BP Pulse Ox 11/11/22 12:00 93 13 94/64 97 11/11/22 10:19 84 18 110/67 95 11/11/22 10:00 76 17 117/62 98 11/11/22 09:31 98.1 F 98 18 117/62 93 L Intake and Output 11/11/22 11/11/22 11/11/22 06:59 14:59 22:59 Other: Weight 56.699 kg - Constitutional General appearance: cooperative, no acute distress, thin - EENT Eyes: anicteric sclerae, EOMI ENT: hearing grossly normal, normal oropharynx - Neck Neck: no lymphadenopathy - Respiratory Respiratory: right: diminished, rales - Cardiovascular Heart sounds: normal: S1, S2 leg Peripheral Edema: bilateral: None - Gastrointestinal General gastrointestinal: no absent bowel sounds, no decreased bowel sounds, no distended, no hepatomegaly, no hyperactive bowel sounds, normal bowel sounds, no organomegaly, no rigid, no scaphoid, soft, no splenomegaly, tenderness, no umbilical hernia, no ventral hernia Localized gastrointestinal: tender: epigastric periumbilical - Integumentary Integumentary: normal - Neurologic Neurologic: CNII-XII intact - Musculoskeletal Musculoskeletal: generalized weakness - Psychiatric Psychiatric: A&O x's 3, appropriate affect, intact judgment & insight Results CBC & Chem 7: 11/11/22 10:18 11/11/22 10:18 Labs: Abnormal Lab Results - Last 24 Hours (Table) 11/11/22 11/11/22 Range/Units 10:18 10:18 RBC 3.39 L (3.80-5.40) m/uL Hgb 10.1 L (11.4-16.0) gm/dL Hct 32.3 L (34.0-46.0) % Neutrophils # 9.3 H (1.3-7.7) k/uL Lymphocytes # 0.5 L (1.0-4.8) k/uL Sodium 136 L (137-145) mmol/L BUN 35 H (7-17) mg/dL Creatinine 1.40 H (0.52-1.04) mg/dL Glucose 123 H (74-99) mg/dL Comments: PET scan from [place] reviewed with patient and her family. Chest x-ray: report reviewed CT scan - chest: report reviewed Assessment and Plan (1) Pleural effusion Current Visit: Yes Status: Acute Priority: High Code(s): J90 - PLEURAL EFFUSION, NOT ELSEWHERE CLASSIFIED SNOMED Code(s): 23415966 (2) Atypical chest pain Current Visit: Yes Status: Acute Priority: High Code(s): R07.89 - OTHER CHEST PAIN SNOMED Code(s): 621436883 (3) Adenocarcinoma of lung Current Visit: Yes Status: Acute Priority: Medium Code(s): C34.90 - MALIGNANT NEOPLASM OF UNSP PART OF UNSP BRONCHUS OR LUNG SNOMED Code(s): 528755128 Plan: Pleural effusion -Case was discussed with Cardiothoracic Surgery BURLING AND JOINING SUPERVISOR. Plan for instillation of lytics to break up the septations and drain. They will also assess the Pleurx drain to see if that can be discontinued now more maybe in the near future as patient and family note that there has been significant reduction in the amount of fluid being drained PD-L1 + Metastatic non-small cell lung cancer -PD-L1 41%, status post 4 cycles pembrolizumab -Restaging PET scan yesterday. PET scan was reviewed with Dr. Fisher, this PET/CT was compared to a PET/CT 08/14/22. Right posterior perihilar region SUV 10.5, previously was 10.4. Small focal cardiophrenic activity SUV of 5, was 3.7 before. FDG avid node right anterior mediastinum SUV 4.6, was 4.3. Increased activity along the right anterior lateral pleura with an SUV of 4.1-this is the area of irritation currently. Subcentimeter left supraclavicular lymph node SUV 3.1 is new, distal periaortic thoracic density SUV 5.7 was 5.1. No FDG avid findings in the abdomen, pelvis or inguinal areas. Findings are most consistent with pseudo-progression as patient actually is doing better. Her pleural fluid output is decreased. In general she is not having any other side effects from immunotherapy, no other evidence to suggest disease progression. Agree with the plan of care currently, assess and correct what is going on in the right lung right now. Reviewed the findings with the patient's family at the bedside. However questions and concerns were addressed. Rash -Located around the Pleurx catheter. Uncertain if this has to do with sensitivity to the material that catheters made out of? Patient reported some relief previously with topical steroids, this has been ordered -The Benadryl has been ordered daily with 2 additional doses when necessary for itching Epigastric pain -Added PPI twice a day -Antiemetics available -Different pain medications are being utilized due to patient's lower blood pressure, may have to consider steroids
[2022-11-11] MEDS ORDERED: PIPERACILLIN-TAZOBACTAM 3.375 GM in SODIUM CHLORIDE 0.9% 100 ML IVPB SCH (16:00)
[2022-11-11] MEDS: HYDROCORTISONE 1% CREAM 30 GM TUBE TOPICAL SCH ×2 (16:58→21:03)
[2022-11-11] MEDS: diphenhydrAMINE 25 MG CAP PO SCH (16:58)
[2022-11-11] MEDS ORDERED: traMADol 50 MG TAB PO PRN (19:23)
[2022-11-11] MEDS ORDERED: FAMOTIDINE 20 MG/2 ML VIAL IV SCH ×3 (20:00→21:00)
[2022-11-11] MEDS ORDERED: APIXABAN 5 MG TAB PO SCH (21:00)
[2022-11-11] MEDS ORDERED: ATORVASTATIN 10 MG TAB PO SCH (21:00)
[2022-11-11] MEDS: APIXABAN 2.5 MG TABLET PO SCH (21:01)
[2022-11-11] MEDS: MAGNESIUM OXIDE 400 MG TAB PO SCH (21:01)
--- NOTE | 2022-11-12 02:26 | P.CNPUL ---
History of Present Illness Consult date: 11/12/22 Requesting physician: Franck Cade Reason for consult: pleural effusion Chief complaint: Shortness of breath and right-sided chest pain History of present illness: I am seeing this patient in consultation today 11/12/2022 for a recurrent right- sided malignant pleural effusion and possible empyema. Patient is an 82-year-old female with past medical history significant for metastatic adeno carcinoma of the lung maintained on Keytruda, recurrent right-sided malignant pleural effusion status post Pleurx catheter placement on 09/17/2022, multiple myeloma with previous stent cell transplant, previous tobacco tobacco dependence, chronic atrial fibrillation on Eliquis, hypertension, hyperli pidemia, hypothyroidism, and chronic kidney disease. Patient does follow in the office with Dr. Kaur, Dr. Fisher from oncology, and Dr. Wagoner after placement of a right Pleurx catheter back in August, for a recurrent malignant right-sided pleural effusion. Homecare has been draining patient's Pleurx catheter weekly, and apparently output has tapered off. She presented to the emergency room yesterday morning with shortness of breath and right sided chest pain that started over the last 24 hours. Patient is currently sitting up in bed, on 2 L/m nasal cannula, in no acute distress. Chest CTA on arrival showed a moderate size right pleural effusion, with thick wall and foci of gas suggestive of empyema, with increased density suggestive of septations. There was a small right apical pneumothorax. CT services was consulted, and has instilled TPA. Pleurx catheter is to suction, and there is a total of 320 ML's of serosanguineous drainage within the atrium. Patient is afebrile. No leukocytosis. CBC shows WBC count 10.4, hemoglobin 10.1, hematocrit 32.3, platelets 138. BMP on arrival shows sodium 136, potassium 4.9, chloride 102, serum bicarb 25, BUN 35, creatinine 1.4, glucose 123. Normal saline infusing at 20 ML's per hour. Troponins less than 0.12. NT proBNP 12,200. Heart rhythm is irregular. Vital signs are stable. Patient appears nontoxic, no signs of infection, no need for antibiotics at this time. Review of Systems REVIEW OF SYSTEMS: CONSTITUTIONAL: Denies any recent significant weight loss or weight gain. Denies fever. EYES: Denies change in vision. EARS, NOSE, MOUTH, THROAT: Denies headaches, denies sore throat. CARDIOVASCULAR: Denies: palpitations, lightheadedness, syncopal episodes, lower extremity swelling. RESPIRATORY: Denies: cough, congestion or hemoptysis. Admits right-sided chest pain and shortness of breath GASTROINTESTINAL: Denies change in appetite, abdominal pain, nausea and vomiting, or diarrhea GENITOURINARY: Denies hematuria, denies infections. MUSKULOSKELETAL: Denies pain, denies swelling. INTEGUMENTARY: Denies rash, denies eczema. NEUROLOGICAL: Denies recent memory loss, no recent seizure activity. PSYCHIATRIC: Denies anxiety, denies depression. HEMATOLOGIC/LYMPHATIC: Denies anemia, denies enlarged lymph node 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., BASAL CELL SKIN CANCER., STATES "LOW KIDNEY FUNCTION"., RIGHT PLEURAL EFFUSION WITH THORACENTESIS X2, lung cancer History of Any Multi-Drug Resistant Organisms: None Reported Past Surgical History: Tubal Ligation Additional Past Surgical History / Comment(s): RIGHT ANKLE FX SURGERY WITH HARDWARE, CATARACTS, BONE MARROW BX'S .,STEM CELL TRANSPLANT 2010., THORACENTESIS X2; right-sided Pleurx catheter placement August 2022 Past Anesthesia/Blood Transfusion Reactions: No Reported Reaction Past Psychological History: No Psychological Hx Reported Smoking Status: Former smoker Past Alcohol Use History: Occasional Additional Past Alcohol Use History / Comment(s): QUIT SMOKING 1986, HX OF 1PPD, STARTED SMOKING AGE 20. Past Drug Use History: None Reported - Past Family History Father Family Medical History: Cancer Additional Family Medical History / Comment(s): LUNG CANCER Medications and Allergies Home Medications Medication Instructions Recorded Confirmed Type Apixaban [Eliquis] 5 mg PO BID 06/19/22 11/11/22 History Calcium Citrate/Vitamin D3 1 tab PO DAILY 06/19/22 11/11/22 History [Calcium Cit 315-Vit D3 6.25 Mcg (250 Iu)] Cholecalciferol [Vitamin D3 (25 25 mcg PO DAILY 06/19/22 11/11/22 History Mcg = 1000 Iu)] Cyanocobalamin (Vitamin B-12) 1,000 mcg PO DAILY 06/19/22 11/11/22 History [Vitamin B-12] Levothyroxine Sodium [Synthroid] 150 mcg PO DAILY 06/19/22 11/11/22 History Magnesium Oxide [Mag-Ox] 400 mg PO BID 06/19/22 11/11/22 History Multivit-Min/Iron/Folic/Lutein 1 tab PO DAILY 06/19/22 11/11/22 History [Centrum Silver Women Tablet] Simvastatin [Zocor] 10 mg PO Q48H 06/19/22 11/11/22 History Sodium Bicarbonate Tab 650 mg PO DAILY 06/19/22 11/11/22 History amLODIPine [Norvasc] 10 mg PO DAILY 06/19/22 11/11/22 History calcitrioL [Calcitriol] 0.5 mcg PO SUTH 06/19/22 11/11/22 History Albuterol Sulfate [Albuterol 2 puff PO RT-Q6H PRN 11/11/22 11/11/22 History Sulfate Hfa] Betamethasone Dipropionate 1 applic TOPICAL BID 11/11/22 11/11/22 History [Diprolene AF 0.05% Cream] Mv-Mn/Om3/Dha/Epa/Fish/Lut/Isaiah 1 cap PO DAILY 11/11/22 11/11/22 History [Ocuvite Adult 50 Plus Softgel] Pembrolizumab [Keytruda] 200 mg IV Q21D 11/11/22 11/11/22 History Allergies Allergy/AdvReac Type Severity Reaction Status Date / Time No Known Allergies Allergy Verified 11/11/22 09:34 Physical Exam Vitals: Vital Signs Temp Pulse Pulse Resp BP BP Pulse Ox 11/11/22 19:24 98.5 F 93 16 101/64 96 11/11/22 18:38 95 11/11/22 15:20 98.9 F 89 20 99/56 92 L 11/11/22 12:00 93 13 94/64 97 11/11/22 10:19 84 18 110/67 95 11/11/22 10:00 76 17 117/62 98 11/11/22 09:31 98.1 F 98 18 117/62 93 L Intake and Output 11/11/22 11/11/22 11/12/22 14:59 22:59 06:59 Intake Total 20 Output Total 140 Balance -120 Intake: Intake, IV Titration 20 Amount Sodium Chloride 0.9% 1, 20 000 ml @ 20 mls/hr IV . Q24H [facility] Rx#:[id number] Output: Chest Tube Drainage 140 Pleural Catheter Right 140 Other: Voiding Method Toilet Toilet # Voids 1 Weight 56.699 kg 56.699 kg GENERAL EXAM: Alert, 82-year-old white female appearing stated age, nontoxic, comfortable in no apparent distress. HEAD: Normocephalic and atraumatic EYES: Normal reaction of pupils, equal size. NOSE: Clear with pink turbinates. THROAT: No erythema or exudates. NECK: No masses, no JVD. CHEST: No chest wall deformity. LUNGS: Diminished right-sided lung sounds. No wheezes, crackles, rhonchi. On 2 L/m nasal cannula. No conversational dyspnea or accessory muscle use.. CVS: S1 and S2 normal with no audible murmur, irregular rhythm. No extra heart sounds ABDOMEN: No hepatosplenomegaly, active bowel sounds, no guarding or rigidity. SPINE: No scoliosis or deformity SKIN: No rashes CENTRAL NERVOUS SYSTEM: No focal deficits, tone is normal in all 4 extremities. EXTREMITIES: There is no peripheral edema, clubbing, or cyanosis. Peripheral pulses are intact. Results - Laboratory Findings CBC and BMP: 11/12/22 05:49 11/12/22 05:49 PT/INR, D-dimer PT 11.2 sec (9.0-12.0) 11/11/22 10:18 INR 1.1 (<1.2) 11/11/22 10:18 Abnormal lab findings: Abnormal Labs 11/11/22 11/11/22 10:18 10:18 RBC 3.39 L Hgb 10.1 L Hct 32.3 L Neutrophils # 9.3 H Lymphocytes # 0.5 L Sodium 136 L BUN 35 H Creatinine 1.40 H Glucose 123 H - Diagnostic Findings Chest x-ray: image reviewed CT scan - chest: image reviewed Assessment and Plan Assessment: Recurrent right-sided malignant pleural effusion status post Pleurx catheter insertion 09/17/2022. Homecare routinely drains Pleurx catheter weekly. Apparently, there has been reduced output. Chest CTA on arrival showed a moderate size right pleural effusion, with thick wall and foci of gas suggestive of empyema, increased density suggestive of septations. There was a small right apical pneumothorax. TPA has been instilled Acute hypoxemic respiratory failure, on 2 L/m nasal cannula, secondary to above Metastatic lung adenocarcinoma, with recurrent right sided malignant pleural effusion, maintained on Keytruda. History of multiple myeloma and stem cell transplant Atrial fibrillation with controlled ventricular rate, chronic, anticoagulated on Eliquis Benign essential hypertension Hyperlipidemia Hypothyroidism Chronic kidney disease stage IV Ex-smoker Plan: Patient's medications, labs, imaging reviewed Continue supplemental oxygen Pleurx catheter post TPA installation, and currently hooked to suction at -20 cm H2O There is 320 ML's of serosanguineous output in the atrium No significant infectious process indicated, no need for antibiotics at this time Repeat chest x-ray in a.m. Oncology has also been consulted We will continue to follow and make recommendations I have personally seen and examined the patient, performed the documentation and the assessment and plan as written. Number of minutes spent on the visit:20 This is a joint evaluation that was done along with the nurse practitioner. This evaluation was on a more than 30 minutes. In summary, the patient is a malignant right-sided pleural effusion the patient has a Pleurx catheter in place. The drainage from the Pleurx catheter has been very low and the patient expressed worsening shortness of breath. Note that the CAT scan of the chest also showed a moderate-sized right-sided pleural effusion and areas of focal gas within the pleural fluid. Nevertheless, the patient has no fever. She does not look toxic. No leukocytosis. The catheter patency was achieved by instilling alteplase and output is improved and the patient has produced approximately 500 mL's of pleural fluid in the pleural VAC. The patient would h ave the pleural fluid sent for Gram stain and culture. At the same time, the patient expressed an acute kidney injury probably related to contrast. The patient will be given IV fluids. We'll monitor the creatinine. Hold antibiotics for now. Monitor the output from the right-sided chest tube. The patient is currently on room air oxygen. We'll continue to follow. Time with Patient: Greater than 30
[2022-11-12] MEDS ORDERED: VANCOMYCIN 1,000 MG in SODIUM CHLORIDE 0.9% 250 ML IVPB ONE (06:00)
[2022-11-12] MEDS: LEVOTHYROXINE 75 MCG TAB PO SCH (06:11)
[2022-11-12 06:19] LABS: Basophils % (A) 0 %; Eosinophils # (A) 0.1 k/uL (0-0.7); Eosinophils % (A) 1 %; HCT 28.3 % (34.0-46.0); HGB 8.8 gm/dL (11.4-16.0); Hypochromasia Marked; Lymphocytes # (A) 1.1 k/uL (1.0-4.8); Lymphocytes % (A) 12 %; MCH 30.6 pg (25.0-35.0); MCHC 31.3 g/dL (31.0-37.0); MCV 97.9 fL (80.0-100.0); Mean Platelet Volume 7.3; Monocytes # (A) 0.8 k/uL (0-1.0); Monocytes % (A) 8 %; Neutrophils # (A) 7.3 k/uL (1.3-7.7); Neutrophils % (A) 77 %; Platelet Count 333 k/uL (150-450); RBC 2.89 m/uL (3.80-5.40); RDW 14.7 % (11.5-15.5); WBC 9.4 k/uL (3.8-10.6)
[2022-11-12 06:32] LABS: African American GFR (CKD) 21 (>60 ml/min/1.73 sqM); Anion Gap 8 mmol/L; Blood Urea Nitrogen 43 mg/dL (7-17); Calcium 8.3 mg/dL (8.4-10.2); Carbon Dioxide 25 mmol/L (22-30); Chloride 101 mmol/L (98-107); Glucose 84 mg/dL (74-99); Non-African American GFR(CKD) 18 (>60 ml/min/1.73 sqM); Potassium 5.7 mmol/L (3.5-5.1); Sodium 134 mmol/L (137-145)
[2022-11-12] MEDS: ALBUTEROL NEBULIZED 2.5 MG/3 ML INHALATION PRN ×2 (07:58→19:46)
--- NOTE | 2022-11-12 08:07 | P.PN ---
Subjective Progress Note Date: 11/12/22 Principal diagnosis: Moderate right-sided pleural effusion. History of metastatic lung cancer (adenocarcinoma) maintained on Keytruda with recurrent malignant right-sided pleural effusion status post thoracentesis as well as placement of Pleurx catheter, multiple myeloma (2009), stem cell transplant (2010), previous tobacco dependence, chronic atrial fibrillation on Eliquis for anticoagulation, hypertension, hyperlipidemia, hypothyroid, chronic kidney disease The patient was seen and examined this morning sitting up in bed in the observation unit in no acute distress. States she feels significantly better, states her breathing is easier and she is having no chest pain. Lytics were instilled yesterday, currently there is 550 mL of fluid in the chest atrium. Labs, chest x-ray reviewed. Patient remains afebrile, vitals stable, no indication of infection. Currently on room air with oxygen saturation in the mid 90s. No other new concerns. Objective - Vital Signs Vital signs: Vital Signs Temp 98.5 F 11/11/22 19:24 Pulse 70 11/12/22 02:00 Resp 16 11/12/22 02:00 BP 94/56 11/12/22 02:00 Pulse Ox 95 11/12/22 02:00 FiO2 Intake & Output 11/11/22 11/12/22 11/12/22 18:59 06:59 18:59 Intake Total 40 Output Total 140 310 Balance -140 -270 Weight 56.699 kg Intake: Intake, IV Titration 40 Amount Sodium Chloride 0.9% 1, 40 000 ml @ 20 mls/hr IV . Q24H [facility] Rx#:[id number] Output: Chest Tube Drainage 140 310 Pleural Catheter Right 140 310 Other: Voiding Method Toilet # Voids 1 - Exam CONSTITUTIONAL: Appears comfortable, cooperative, no acute distress RESPIRATORY: Lungs sounds diminished on the right. Respirations even, nonla bored. Currently on room air with oxygen saturation 94%. Able to achieve 500 mL on incentive spirometry. Strong cough. CARDIOVASCULAR: S1, S2 present. Irregular rate and rhythm. Palpable perip heral pulses bilaterally. No edema present. No calf pain or tenderness noted GASTROINTESTINAL: Abdomen soft, nontender, nondistended. Active bowel sounds present 4 quadrants. Tolerating diet GENITOURINARY: Continues to void INTEGUMENTARY: Skin is warm and dry NEUROLOGIC: Cranial nerves II through XII intact MUSKULOSKELETAL: Able to move all extremities, strength equal bilaterally, gait normal PSYCHIATRIC: Alert and oriented to person place and time, appropriate affect, intact judgment and insight INVASIVE LINES AND TUBES: Right-sided Pleurx catheter present and connected to Pleur-evac to -20 cm continuous wall suction, 550 mL serosanguineous output since instillation of lytics yesterday - Allied health notes Allied health notes reviewed: nursing - Labs CBC & Chem 7: 11/12/22 05:49 11/12/22 05:49 Labs: Abnormal Lab Results - Last 24 Hours (Table) 11/11/22 11/11/22 11/12/22 Range/Units 10:18 10:18 05:49 RBC 3.39 L 2.89 L (3.80-5.40) m/uL Hgb 10.1 L 8.8 L (11.4-16.0) gm/dL Hct 32.3 L 28.3 L (34.0-46.0) % Neutrophils # 9.3 H (1.3-7.7) k/uL Lymphocytes # 0.5 L (1.0-4.8) k/uL Sodium 136 L (137-145) mmol/L Potassium (3.5-5.1) mmol/L BUN 35 H (7-17) mg/dL Creatinine 1.40 H (0.52-1.04) mg/dL Glucose 123 H (74-99) mg/dL Calcium (8.4-10.2) mg/dL 11/12/22 Range/Units 05:49 RBC (3.80-5.40) m/uL Hgb (11.4-16.0) gm/dL Hct (34.0-46.0) % Neutrophils # (1.3-7.7) k/uL Lymphocytes # (1.0-4.8) k/uL Sodium 134 L (137-145) mmol/L Potassium 5.7 H (3.5-5.1) mmol/L BUN 43 H (7-17) mg/dL Creatinine 2.47 H (0.52-1.04) mg/dL Glucose (74-99) mg/dL Calcium 8.3 L (8.4-10.2) mg/dL - Imaging and Cardiology Chest x-ray: image reviewed Assessment and Plan Assessment: Moderate right-sided pleural effusion, status post installation of lytics through Pleurx catheter Increased shortness of breath, secondary to above, improved Metastatic lung cancer (adenocarcinoma) maintained on Keytruda with recurrent malignant right-sided pleural effusion status post thoracentesis as well as placement of Pleurx catheter History of multiple myeloma (2009) History stem cell transplant (2010) Previous tobacco dependence Chronic atrial fibrillation on Eliquis for anticoagulation History of hypertension Hyperlipidemia Hypothyroid Chronic kidney disease Plan: Will discontinue Pleur-evac prior to discharge. Patient to continue Pleurx drainage at home. No further lytic instillation Patient is cleared for discharge from cardiothoracic surgery standpoint Encourage continued incentive spirometry use although unlikely that patient will completely reexpand the right lung No clinical indication of infection, no antibiotics necessary Patient to follow up with oncology upon discharge Once patient's drainage from Pleurx is less than 50 mL for 3 times in a row she was instructed to contact our office for Pleurx removal Medical management of other comorbidities per internal medicine Please call us with any further questions
[2022-11-12] MEDS: HYDROCORTISONE 1% CREAM 30 GM TUBE TOPICAL SCH ×3 (08:51→20:59)
[2022-11-12] MEDS: APIXABAN 2.5 MG TABLET PO SCH ×2 (08:52→20:59)
[2022-11-12] MEDS: amLODIPine 10 MG TAB PO SCH (08:52)
[2022-11-12] MEDS: SODIUM BICARBONATE TAB 650 MG TAB PO SCH (08:52)
[2022-11-12] MEDS: MAGNESIUM OXIDE 400 MG TAB PO SCH ×2 (08:52→20:58)
[2022-11-12] MEDS: diphenhydrAMINE 25 MG CAP PO SCH (08:53)
--- NOTE | 2022-11-12 09:53 | XR ---
EXAMINATION TYPE: XR chest 2V DATE OF EXAM: 11/12/2022 COMPARISON: 11/11/2022 INDICATION: Pneumonia TECHNIQUE: Frontal and lateral views of the chest are obtained. FINDINGS: The heart size is enlarged. The pulmonary vasculature is normal. Air-fluid levels are within the right apex and at the right lung base. Correlate for cavitary lesions . Findings can be associated with pneumonia. IMPRESSION: 1. Multiple right-sided air-fluid levels compatible with cavitary lesions. Continued follow-up is rec ommended.
[2022-11-12] MEDS ORDERED: HYDROcodone/APAP 5-325MG 1 EACH TAB PO PRN (14:47)
--- NOTE | 2022-11-12 14:47 | P.PN ---
Subjective Progress Note Date: 11/12/22 Principal diagnosis: Pleuritic chest pain, metastatic non-small cell lung cancer In follow-up today, patient reporting significant reduction in pain with inspiration, tolerating oral intake, no other physical complaints. Objective - Vital Signs Vital signs: Vital Signs Temp 98.0 F 11/12/22 13:30 Pulse 85 11/12/22 13:30 Resp 18 11/12/22 13:30 BP 91/60 11/12/22 13:30 Pulse Ox 94 L 11/12/22 13:30 FiO2 Intake & Output 11/11/22 11/12/22 11/12/22 18:59 06:59 18:59 Intake Total 40 236 Output Total 140 310 Balance -140 -270 236 Weight 56.699 kg Intake: Intake, IV Titration 40 Amount Sodium Chloride 0.9% 1, 40 000 ml @ 20 mls/hr IV . Q24H [facility] Rx#:[id number] Oral 236 Output: Chest Tube Drainage 140 310 Pleural Catheter Right 140 310 Other: Voiding Method Toilet # Voids 1 4 - Constitutional General appearance: Present: cooperative, no acute distress, thin - EENT Eyes: Present: anicteric sclerae, EOMI ENT: Present: hearing grossly normal - Respiratory Details: Respirations even and unlabored at rest - Cardiovascular Details: Skin warm and dry to touch - Peripheral edema leg Peripheral Edema: bilateral: None - Integumentary Integumentary Comment(s): Right chest wall/flank rash less puritic per patient, discoloration/redness slightly improved - Neurologic Neurologic: Present: CNII-XII intact - Musculoskeletal Musculoskeletal: Present: generalized weakness - Psychiatric Psychiatric: Present: A&O x's 3, appropriate affect, intact judgment & insight - Labs CBC & Chem 7: 11/12/22 05:49 11/12/22 05:49 Labs: Abnormal Lab Results - Last 24 Hours (Table) 11/12/22 11/12/22 Range/Units 05:49 05:49 RBC 2.89 L (3.80-5.40) m/uL Hgb 8.8 L (11.4-16.0) gm/dL Hct 28.3 L (34.0-46.0) % Sodium 134 L (137-145) mmol/L Potassium 5.7 H (3.5-5.1) mmol/L BUN 43 H (7-17) mg/dL Creatinine 2.47 H (0.52-1.04) mg/dL Calcium 8.3 L (8.4-10.2) mg/dL - Imaging and Cardiology Chest x-ray: report reviewed Assessment and Plan (1) Pleural effusion Current Visit: Yes Status: Acute Priority: High Code(s): J90 - PLEURAL EFFUSION, NOT ELSEWHERE CLASSIFIED SNOMED Code(s): 52296437 (2) Atypical chest pain Current Visit: Yes Status: Acute Priority: High Code(s): R07.89 - OTHER CHEST PAIN SNOMED Code(s): 232520198 (3) Adenocarcinoma of lung Current Visit: Yes Status: Acute Priority: Medium Code(s): C34.90 - MALIGNANT NEOPLASM OF UNSP PART OF UNSP BRONCHUS OR LUNG SNOMED Code(s): 487284400 Plan: Pleural effusion -Cardiothoracic Surgery mgmt. Pt doing better today. PD-L1 + Metastatic non-small cell lung cancer -PD-L1 41%, status post 4 cycles pembrolizumab -Restaging PET scan 11/10 was compared to a PET/CT 08/14/22. Right posterior perihilar region SUV 10.5, previously was 10.4. Small focal cardiophrenic activity SUV of 5, was 3.7 before. FDG avid node right anterior mediastinum SUV 4.6, was 4.3. Increased activity along the right anterior lateral pleura with an SUV of 4.1-this is the area of irritation currently. Subcentimeter left supraclavicular lymph node SUV 3.1 is new, distal periaortic thoracic density SUV 5.7 was 5.1. No FDG avid findings in the abdomen, pelvis or inguinal areas. Findings are most consistent with pseudo-progression as patient presentation, breathing and in general, is improved from presentation. Her pleural fluid output has decreased. No other significant side effects from immunotherapy, no other evidence to suggest disease progression. -Agree with plan of care, assess and correct what is going on in the right lung right now. -Cont IO as prescribed Rash -Located around the Pleurx catheter. Uncertain if this has to do with sensitivity to the material that catheters made out of? Patient reported some relief previously with topical steroids, this was started yesterday along with benadryl. She is reporting relief in the "burning" and itchiness. Epigastric pain -Pt reports improved -Cont PPI twice a day -Antiemetics available -most likely pleuritic pain. Added a norco as BP is better today Anemia -Chronic, multifactorial including CKD, Hx of chemo, transplant, inflammation and malignancy -Transfuse for Hgb <7 or if symptomatic -Anemia work up will be done in ofc CKD -Ofc labs reviewed, pt creatinine baseline range is 1.7-2.5
[2022-11-12] MEDS ORDERED: SODIUM POLYSTYRENE SULFONATE 15 GM/60 ML BOTTLE PO STA (18:06)
[2022-11-12] MEDS ORDERED: LACTULOSE 20 GM/30 ML CUP PO PRN (18:10)
[2022-11-12] MEDS ORDERED: CALCIUM CARBONATE 500 MG CHEWABLE PO PRN (18:10)
[2022-11-12] MEDS ORDERED: MELATONIN 3 MG TABLET PO PRN (18:10)
[2022-11-12] MEDS ORDERED: LORazepam 0.5 MG TAB PO PRN (18:10)
--- NOTE | 2022-11-12 18:11 | P.HPIM ---
History of Present Illness H&P Date: 11/12/22 Chief Complaint: Lower chest pain This is a pleasant 82-year-old patient who follows with Dr. Shiloh braswell. [employer] Dr. Kaur, oncologist Dr. Fisher, She has a diagnosis of significant metastatic adenocarcinoma of the lung maintained on IV every 2 to every 3 weeks. Recurrent right pleural effusion. Had a Pleurx catheter placed on August 2022. Home care has been draining clear fluid weekly. And the amount has been decreasing. She presented to the ER with significant pressure in the lower chest epigastric area. Computed tomography scan of the chest showed significant right pleural effusion. TPA and Pulmozyme was placed in the Pleurx catheter about 5 20 mL was drained. Patient chest pressure improved off of that. No fever no chills. Appetite is fair. Patient is accompanied by her son and [id number] at the bedside. Patient is given IV vancomycin and IV Zosyn in the ER. Review of systems: GEN.: Tired EYES: None HEENT: None NECK: None RESPIRATORY: Some baseline shortness of breath CARDIOVASCULAR: As above GASTROINTESTINAL: None GENITOURINARY: None MUSCULOSKELETAL: None LYMPHATICS: None HEMATOLOGICAL: None PSYCHIATRY: None NEUROLOGICAL: None Past medical history to include: Atrial fibrillation, adenocarcinoma metastatic of the lung, hypertension, arthritis, hypothyroid, multiple myeloma with history of stem cell transplant 2010 with chemotherapy. Basal cell skin cancer, malignant right pleural effusion Social history: Lives alone. Alcohol occasionally. Smoked a pack a day since the age of 20 stopped in 1986. Physical examination: VITAL SIGNS: 98.1, 62, 18, 11 8 x 62, 94% on 2 L GENERAL: BMI 20.8, declining but awake not in distress. EYES: Pupils equal. Conjunctiva normal. HEENT: External appearance of nose and ears normal, oral cavity grossly normal. NECK: JVD not raised; masses not palpable. HEART: First and second heart sounds are normal; no edema. LUNGS: Respiratory rate normal; clear to auscultation. ABDOMEN: Soft, nontender, liver spleen not palpable, no masses palpable. Pleurx catheter in the epigastric area. Some area of discoloration on the right site. Nontender PSYCH: Alert and oriented x3; mood and affect normal. MUSCULOSKELETAL:No Clubbing/cyanosis;muscles-grossly intact. OA NEUROLOGICAL: Cranial nerves grossly intact; no facial asymmetry, power and sensation grossly intact. LYMPHATICS: No lymph nodes palpable in the axilla and neck INVESTIGATIONS, reviewed in the clinical context: November 12: White count 9.4 hemoglobin 8.8 platelets 333 sodium 134 potassium 5.7 BUN 43 creatinine 2.47 November 11: White count 10.4 hemoglobin 10.1 platelets 438 potassium 4.9 BUN 35 creatinine 1.4 Troponin I 3 negative ProBNP 16837 EKG tracing personally reviewed by me-atrial flutter fibrillation rate 86 Chest x-ray film personally reviewed by me-large right pleural effusion CT chest without contrast: Moderate right-sided pleural effusion with thick wall and foci of gas. Right pleural catheter. Appropriate position. Associated S is a right middle and lower lobe. Assessment and plan: -Malignant right pleural fusion. Decreased output from obstructed Pleurx catheter. Patient did receive TPA. Had a good output from the same. This was the cause of patient's chest pain. -Metastatic adenocarcinoma of the lung. Being followed by Dr. Cho. Patient receives IV every 2 to every 3 weeks. -Hyperkalemia from acute kidney injury. Kayexalate 30 g. Low potassium diet. Telemetry. -Acute kidney injury. Creatinine gone up from 1.4-2.47. Do not have a baseline prior creatinine. IV fluids. UA. Renal ultrasound. -Persistent atrial flutter fibrillation. Rate controlled. Eliquis. -Hypothyroid Synthroid 150 g a day -Hyperlipidemia Zocor 10 mg every 48 hours -Essential hypertension Amlodipine 10 mg a day Patient's is no fever no white count. Do not believe to be an underlying infection. Stop vancomycin and Zosyn. Discussed with patient and family at the bedside. Because of patient's acute kidney injury and hyperkalemia.Given the complexity and severity of patient's condition expect the patient to be in the hospital at least for 2 overnights 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., BASAL CELL SKIN CANCER., STATES "LOW KIDNEY FUNCTION"., RIGHT PLEURAL EFFUSION WITH THORACENTESIS X2, lung cancer History of Any Multi-Drug Resistant Organisms: None Reported Past Surgical History: Tubal Ligation Additional Past Surgical History / Comment(s): RIGHT ANKLE FX SURGERY WITH HARDWARE, CATARACTS, BONE MARROW BX'S .,STEM CELL TRANSPLANT 2010., THORACENTESIS X2; right-sided Pleurx catheter placement August 2022 Past Anesthesia/Blood Transfusion Reactions: No Reported Reaction Past Psychological History: No Psychological Hx Reported Smoking Status: Former smoker Past Alcohol Use History: Occasional Additional Past Alcohol Use History / Comment(s): QUIT SMOKING 1986, HX OF 1PPD, STARTED SMOKING AGE 20. Past Drug Use History: None Reported - Past Family History Father Family Medical History: Cancer Additional Family Medical History / Comment(s): LUNG CANCER Medications and Allergies Home Medications Medication Instructions Recorded Confirmed Type Apixaban [Eliquis] 5 mg PO BID 06/19/22 11/11/22 History Calcium Citrate/Vitamin D3 1 tab PO DAILY 06/19/22 11/11/22 History [Calcium Cit 315-Vit D3 6.25 Mcg (250 Iu)] Cholecalciferol [Vitamin D3 (25 25 mcg PO DAILY 06/19/22 11/11/22 History Mcg = 1000 Iu)] Cyanocobalamin (Vitamin B-12) 1,000 mcg PO DAILY 06/19/22 11/11/22 History [Vitamin B-12] Levothyroxine Sodium [Synthroid] 150 mcg PO DAILY 06/19/22 11/11/22 History Magnesium Oxide [Mag-Ox] 400 mg PO BID 06/19/22 11/11/22 History Multivit-Min/Iron/Folic/Lutein 1 tab PO DAILY 06/19/22 11/11/22 History [Centrum Silver Women Tablet] Simvastatin [Zocor] 10 mg PO Q48H 06/19/22 11/11/22 History Sodium Bicarbonate Tab 650 mg PO DAILY 06/19/22 11/11/22 History amLODIPine [Norvasc] 10 mg PO DAILY 06/19/22 11/11/22 History calcitrioL [Calcitriol] 0.5 mcg PO SUTH 06/19/22 11/11/22 History Albuterol Sulfate [Albuterol 2 puff PO RT-Q6H PRN 11/11/22 11/11/22 History Sulfate Hfa] Betamethasone Dipropionate 1 applic TOPICAL BID 11/11/22 11/11/22 History [Diprolene AF 0.05% Cream] Mv-Mn/Om3/Dha/Epa/Fish/Lut/Isaiah 1 cap PO DAILY 11/11/22 11/11/22 History [Ocuvite Adult 50 Plus Softgel] Pembrolizumab [Keytruda] 200 mg IV Q21D 11/11/22 11/11/22 History Allergies Allergy/AdvReac Type Severity Reaction Status Date / Time No Known Allergies Allergy Verified 11/11/22 09:34 Physical Exam Vitals: Vital Signs Temp Pulse Pulse Resp BP BP Pulse Ox 11/12/22 08:09 78 11/12/22 08:00 98.1 F 62 18 118/62 94 L 11/12/22 07:58 78 94 L 11/12/22 02:00 70 16 94/56 95 11/11/22 19:24 98.5 F 93 16 101/64 96 11/11/22 18:38 95 11/11/22 15:20 98.9 F 89 20 99/56 92 L 11/11/22 12:00 93 13 94/64 97 Intake and Output 11/11/22 11/12/22 11/12/22 22:59 06:59 14:59 Intake Total 20 20 118 Output Total 140 310 Balance -120 -290 118 Intake: Intake, IV Titration 20 20 Amount Sodium Chloride 0.9% 1, 20 20 000 ml @ 20 mls/hr IV . Q24H [facility] Rx#:[id number] Oral 118 Output: Chest Tube Drainage 140 310 Pleural Catheter Right 140 310 Other: Voiding Method Toilet Toilet # Voids 1 1 Weight 56.699 kg Results CBC & Chem 7: 11/12/22 05:49 11/12/22 05:49 Labs: Abnormal Lab Results - Last 24 Hours (Table) 11/12/22 11/12/22 Range/Units 05:49 05:49 RBC 2.89 L (3.80-5.40) m/uL Hgb 8.8 L (11.4-16.0) gm/dL Hct 28.3 L (34.0-46.0) % Sodium 134 L (137-145) mmol/L Potassium 5.7 H (3.5-5.1) mmol/L BUN 43 H (7-17) mg/dL Creatinine 2.47 H (0.52-1.04) mg/dL Calcium 8.3 L (8.4-10.2) mg/dL Thrombosis Risk Factor Assmnt - Choose All That Apply Each Factor Represents 1 point: Serious lung disease incl. pneumonia (< 1month) Each Risk Factor Represents 3 Points: Age 75 years or older Thrombosis Risk Factor Assessment Total Risk Factor Score: 4 Thrombosis Risk Factor Assessment Level: Moderate Risk
[2022-11-12] MEDS ORDERED: SODIUM CHLORIDE 0.9% 1,000 ML IV SCH (18:15)
[2022-11-12] MEDS: SODIUM CHLORIDE 0.9% 1,000 ML IV SCH (18:36)
[2022-11-12] MEDS ORDERED: FAMOTIDINE 20 MG TAB PO SCH (21:00)
--- NOTE | 2022-11-12 22:06 | US ---
EXAMINATION TYPE: US kidneys/renal and bladder DATE OF EXAM: 11/12/2022 COMPARISON: 05/06/17 CLINICAL INDICATION: Female, 82 years old with history of Kidney injury; bucky EXAM MEASUREMENTS: Right Kidney: 8.5 x 4.3 x 3.4 cm Left Kidney: 6.8 x 3.5 x 4.0 cm Right Kidney: Multiple anechoic areas seen. Largest = 1.6 x 1.5 x 1.8cm. Kidney appears small in size Left Kidney: Multiple anechoic areas seen. Largest = 3.0 x 2.9 x 3.0cm. Kidney appears small in size Bladder: Limited due to bowel gas Bilateral Jets seen: No IMPRESSION: 1. Bilateral renal cysts.
[2022-11-13] MEDS: LEVOTHYROXINE 75 MCG TAB PO SCH (05:58)
[2022-11-13 07:48] LABS: African American GFR (CKD) 23 (>60 ml/min/1.73 sqM); Anion Gap 8 mmol/L; Blood Urea Nitrogen 51 mg/dL (7-17); Calcium 7.6 mg/dL (8.4-10.2); Carbon Dioxide 24 mmol/L (22-30); Chloride 101 mmol/L (98-107); Glucose 84 mg/dL (74-99); Non-African American GFR(CKD) 20 (>60 ml/min/1.73 sqM); Potassium 4.6 mmol/L (3.5-5.1); Sodium 133 mmol/L (137-145)
--- NOTE | 2022-11-13 07:50 | P.PN ---
Subjective Progress Note Date: 11/13/22 Principal diagnosis: Moderate right-sided pleural effusion, acute on chronic kidney disease. History of metastatic lung cancer (adenocarcinoma) maintained on Keytruda with recurrent malignant right-sided pleural effusion status post thoracentesis as well as placement of Pleurx catheter, multiple myeloma (2009), stem cell transplant (2010), previous tobacco dependence, chronic atrial fibrillation on Eliquis for anticoagulation, hypertension, hyperlipidemia, hypothyroid, chronic kidney disease The patient was seen and examined this morning sitting up in bed in the observation unit in no acute distress. States she feels better, states is having no chest pain, was a bit short of breath with activity this morning but currently doing okay. Pleurx catheter continues to atrium for continuous drainage, patient put out over 2 L in the last 24 hours, fluid was sent for culture per Dr. Kaur's request. Patient remains afebrile, vitals stable, no indication of infection. Currently on room air with oxygen saturation in the 90s. No other new concerns. Objective - Vital Signs Vital signs: Vital Signs Temp 98.7 F 11/13/22 07:00 Pulse 89 11/13/22 07:00 Resp 18 11/13/22 07:00 BP 115/65 11/13/22 07:00 Pulse Ox 92 L 11/13/22 07:00 FiO2 Intake & Output 11/12/22 11/13/22 11/13/22 18:59 06:59 18:59 Intake Total 336 1125 Output Total 790 450 Balance -454 675 Intake: Intake, IV Titration 825 Amount Sodium Chloride 0.9% 1, 825 000 ml @ 75 mls/hr IV . [id number] [facility] Rx#:[id number] Oral 336 300 Output: Chest Tube Drainage 790 450 Pleural Catheter Right 790 450 Other: Voiding Method Toilet # Voids 4 1 - Exam CONSTITUTIONAL: Appears comfortable, cooperative, no acute distress RESPIRATORY: Lungs sounds diminished on the right. Respirations even, nonlabored. Currently on room air with oxygen saturation 92%. Able to achieve 750-1000 mL on incentive spirometry. Strong cough. CARDIOVASCULAR: S1, S2 present. Irregular rate and rhythm. Palpable peripheral pulses bilaterally. No edema present. No calf pain or tenderness noted GASTROINTESTINAL: Abdomen soft, nontender, nondistended. Active bowel sounds present 4 quadrants. Tolerating diet GENITOURINARY: Continues to void INTEGUMENTARY: Skin is warm and dry NEUROLOGIC: Cranial nerves II through XII intact MUSKULOSKELETAL: Able to move all extremities, strength equal bilaterally, gait normal PSYCHIATRIC: Alert and oriented to person place and time, appropriate affect, intact judgment and insight INVASIVE LINES AND TUBES: Right-sided Pleurx catheter present and connected to Pleur-evac to -20 cm continuous wall suction, 450 mL serosanguineous drainage overnight, 2 L output in the last 24 hours - Labs CBC & Chem 7: 11/12/22 05:49 11/12/22 05:49 Assessment and Plan Assessment: Moderate right-sided pleural effusion, status post installation of lytics through Pleurx catheter Increased shortness of breath, secondary to above, improved Acute on chronic kidney disease, patient was given Toradol in the emergency room Metastatic lung cancer (adenocarcinoma) maintained on Keytruda with recurrent malignant right-sided pleural effusion status post thoracentesis as well as placement of Pleurx catheter History of multiple myeloma (2009) History stem cell transplant (2010) Previous tobacco dependence Chronic atrial fibrillation on Eliquis for anticoagulation History of hypertension Hyperlipidemia Hypothyroid Chronic kidney disease Plan: Will discontinue Pleur-evac prior to discharge. Patient to continue Pleurx drainage at home. No further lytic instillation Patient is cleared for discharge from cardiothoracic surgery standpoint Encourage continued incentive spirometry use although unlikely that patient will completely reexpand the right lung No clinical indication of infection, no antibiotics necessary Patient to follow up with oncology upon discharge Once patient's drainage from Pleurx is less than 50 mL for 3 times in a row she was instructed to contact our office for Pleurx removal Avoid nephrotoxic agents Medical management of other comorbidities per internal medicine Please call us with any further questions
[2022-11-13] MEDS: ALBUTEROL NEBULIZED 2.5 MG/3 ML INHALATION PRN (08:04)
[2022-11-13] MEDS: APIXABAN 2.5 MG TABLET PO SCH (08:59)
[2022-11-13] MEDS: diphenhydrAMINE 25 MG CAP PO SCH (09:00)
[2022-11-13] MEDS: MAGNESIUM OXIDE 400 MG TAB PO SCH (09:00)
[2022-11-13] MEDS: SODIUM BICARBONATE TAB 650 MG TAB PO SCH (09:00)
[2022-11-13] MEDS: amLODIPine 10 MG TAB PO SCH (09:00)
[2022-11-13] MEDS: HYDROCORTISONE 1% CREAM 30 GM TUBE TOPICAL SCH (09:03)
--- NOTE | 2022-11-13 12:13 | P.PN ---
Subjective Progress Note Date: 11/13/22 I am seeing this patient in consultation today 11/12/2022 for a recurrent right- sided malignant pleural effusion and possible empyema. Patient is an 82-year-old female with past medical history significant for metastatic adenocarcinoma of the lung maintained on Keytruda, recurrent right-sided malignant pleural effusion status post Pleurx catheter placement on 09/17/2022, multiple myeloma with previous stent cell transplant, previous tobacco tobacco dependence, chronic atrial fibrillation on Eliquis, hypertension, hyperlipidemia, hypothyroidism, and chronic kidney disease. Patient does follow in the office with Dr. Kaur, Dr. Fisher from oncology, and Dr. Wagoner after placement of a right Pleurx catheter back in August, for a recurrent malignant right-sided pleural effusion. Homecare has been draining patient's Pleurx catheter weekly, and apparently output has tapered off. She presented to the emergency room yesterday morning with shortness of breath and right sided chest pain that started over the last 24 hours. Patient is currently sitting up in bed, on 2 L/m nasal cannula, in no acute distress. Chest CTA on arrival showed a moderate size right pleural effusion, with thick wall and foci of gas suggestive of empyema, with increased density suggestive of septations. There was a small right apical pneumothorax. CT services was consulted, and has instilled TPA. Pleurx catheter is to suction, and there is a total of 320 ML's of serosanguineous drainage within the atrium. Patient is afebrile. No leukocytosis. CBC shows WBC count 10.4, hemoglobin 10.1, hematocrit 32.3, p latelets 138. BMP on arrival shows sodium 136, potassium 4.9, chloride 102, serum bicarb 25, BUN 35, creatinine 1.4, glucose 123. Normal saline infusing at 20 ML's per hour. Troponins less than 0.12. NT proBNP 12,200. Heart rhythm is irregular. Vital signs are stable. Patient appears nontoxic, no signs of infection, no need for antibiotics at this time. On today's evaluation of 11/13/2022, I'm seeing the patient for a follow-up. The patient is doing well. No chest pain. No shortness of breath. The Pleurx catheter is draining for the time being. Cultures were sent. Nevertheless, the patient does not have any active signs of infection. Patient is feeling well and she is on room air oxygen. I discussed discharge with her and she was fine with that. The cultures can be checked on outpatient basis. The patient will continue doing periodic drainage of a Pleurx catheter on outpatient basis. Objective - Vital Signs Vital signs: Vital Signs Temp 98.7 F 11/13/22 07:00 Pulse 89 11/13/22 08:04 Resp 18 11/13/22 09:24 BP 115/65 11/13/22 07:00 Pulse Ox 90 L 11/13/22 08:04 FiO2 Intake & Output 11/12/22 11/13/22 11/13/22 18:59 06:59 18:59 Intake Total 336 1125 118 Output Total 790 450 Balance -454 675 118 Intake: Intake, IV Titration 825 Amount Sodium Chloride 0.9% 1, 825 000 ml @ 75 mls/hr IV . [id number] [facility] Rx#:[id number] Oral 336 300 118 Output: Chest Tube Drainage 790 450 Pleural Catheter Right 790 450 Other: Voiding Method Toilet # Voids 4 1 - Exam GENERAL EXAM: Alert, 82-year-old white female appearing stated age, nontoxic, comfortable in no apparent distress. HEAD: Normocephalic and atraumatic EYES: Normal reaction of pupils, equal size. NOSE: Clear with pink turbinates. THROAT: No erythema or exudates. NECK: No masses, no JVD. CHEST: No chest wall deformity. LUNGS: Diminished right-sided lung sounds. No wheezes, crackles, rhonchi. On 2 L/m nasal cannula. No conversational dyspnea or accessory muscle use.. CVS: S1 and S2 normal with no audible murmur, irregular rhythm. No extra heart sounds ABDOMEN: No hepatosplenomegaly, active bowel sounds, no guarding or rigidity. SPINE: No scoliosis or deformity SKIN: No rashes CENTRAL NERVOUS SYSTEM: No focal deficits, tone is normal in all 4 extremities. EXTREMITIES: There is no peripheral edema, clubbing, or cyanosis. Peripheral pulses are intact., and - Labs CBC & Chem 7: 11/12/22 05:49 11/13/22 06:38 Labs: Abnormal Lab Results - Last 24 Hours (Table) 11/13/22 Range/Units 06:38 Sodium 133 L (137-145) mmol/L BUN 51 H (7-17) mg/dL Creatinine 2.28 H (0.52-1.04) mg/dL Calcium 7.6 L (8.4-10.2) mg/dL Microbiology - Last 24 Hours (Table) 11/12/22 15:50 Gram Stain - Preliminary Pleural Fluid Body Fluid Culture - Preliminary Assessment and Plan Assessment: Recurrent right-sided malignant pleural effusion status post Pleurx catheter insertion 09/17/2022. Homecare routinely drains Pleurx catheter weekly. Apparently, there has been reduced output. Chest CTA on arrival showed a moderate size right pleural effusion, with thick wall and foci of gas suggestive of empyema, increased density suggestive of septations. There was a small right apical pneumothorax. TPA has been instilled Acute hypoxemic respiratory failure, on 2 L/m nasal cannula, secondary to above Metastatic lung adenocarcinoma, with recurrent right sided malignant pleural effusion, maintained on Keytruda. History of multiple myeloma and stem cell transplant Atrial fibrillation with controlled ventricular rate, chronic, anticoagulated on Eliquis Benign essential hypertension Hyperlipidemia Hypothyroidism Chronic kidney disease stage IV Ex-smoker Plan: The pleural fluid was sent for cultures The catheter is draining post TPA installation, there is more than 500 mL of output Continue periodic drainage on outpatient basis Patient can be discharged home today , Follow-up on outpatient basis
--- NOTE | 2022-11-13 12:17 | P.PN ---
Subjective Progress Note Date: 11/13/22 Principal diagnosis: Pleuritic chest pain, metastatic non-small cell lung cancer In follow-up today, patient reporting no pain with inspiration, tolerating oral intake, no other physical complaints. Objective - Vital Signs Vital signs: Vital Signs Temp 98.7 F 11/13/22 07:00 Pulse 89 11/13/22 08:04 Resp 18 11/13/22 09:24 BP 115/65 11/13/22 07:00 Pulse Ox 90 L 11/13/22 08:04 FiO2 Intake & Output 11/12/22 11/13/22 11/13/22 18:59 06:59 18:59 Intake Total 336 1125 118 Output Total 790 450 Balance -454 675 118 Intake: Intake, IV Titration 825 Amount Sodium Chloride 0.9% 1, 825 000 ml @ 75 mls/hr IV . [id number] [facility] Rx#:[id number] Oral 336 300 118 Output: Chest Tube Drainage 790 450 Pleural Catheter Right 790 450 Other: Voiding Method Toilet # Voids 4 1 - Constitutional General appearance: Present: cooperative, no acute distress, thin - EENT Eyes: Present: anicteric sclerae, EOMI ENT: Present: hearing grossly normal - Respiratory Respiratory: right: diminished (base), bilateral: CTA - Cardiovascular Rhythm: regular Heart sounds: normal: S1, S2 Abnormal Heart Sounds: Absent: systolic murmur, diastolic murmur, rub, S3 Gallop, S4 Gallop, click, other - Peripheral edema leg Peripheral Edema: bilateral: None - Gastrointestinal General gastrointestinal: Present: normal bowel sounds, soft - Integumentary Integumentary Comment(s): rt chest wall/flank rash is stable - Neurologic Neurologic: Present: CNII-XII intact - Musculoskeletal Musculoskeletal: Present: generalized weakness, strength equal bilaterally - Psychiatric Psychiatric: Present: A&O x's 3, appropriate affect, intact judgment & insight - Labs CBC & Chem 7: 11/12/22 05:49 11/13/22 06:38 Labs: Abnormal Lab Results - Last 24 Hours (Table) 11/13/22 Range/Units 06:38 Sodium 133 L (137-145) mmol/L BUN 51 H (7-17) mg/dL Creatinine 2.28 H (0.52-1.04) mg/dL Calcium 7.6 L (8.4-10.2) mg/dL Microbiology - Last 24 Hours (Table) 11/12/22 15:50 Gram Stain - Preliminary Pleural Fluid Body Fluid Culture - Preliminary - Imaging and Cardiology Abd and bladder US report reviewed-small kidneys, bilateral renal cysts Assessment and Plan (1) Pleural effusion Current Visit: Yes Status: Acute Priority: High Code(s): J90 - PLEURAL EFFUSION, NOT ELSEWHERE CLASSIFIED SNOMED Code(s): 50741887 (2) Atypical chest pain Current Visit: Yes Status: Acute Priority: High Code(s): R07.89 - OTHER CHEST PAIN SNOMED Code(s): 726912299 (3) Adenocarcinoma of lung Current Visit: Yes Status: Acute Priority: Medium Code(s): C34.90 - MALIGNANT NEOPLASM OF UNSP PART OF UNSP BRONCHUS OR LUNG SNOMED Code(s): 280421902 (4) Chronic kidney disease Current Visit: Yes Status: Chronic Priority: Low Code(s): N18.9 - CHRONIC KIDNEY DISEASE, UNSPECIFIED SNOMED Code(s): 009197264 Plan: Pleural effusion -Cardiothoracic Surgery mgmt. Pt doing better each day. PD-L1 + Metastatic non-small cell lung cancer -PD-L1 41%, status post 4 cycles pembrolizumab -Restaging PET scan 11/10 was compared to a PET/CT 08/14/22. Right posterior perihilar region SUV 10.5, previously was 10.4. Small focal cardiophrenic activity SUV of 5, was 3.7 before. FDG avid node right anterior mediastinum SUV 4.6, was 4.3. Increased activity along the right anterior lateral pleura with an SUV of 4.1-this is the area of irritation currently. Subcentimeter left supraclavicular lymph node SUV 3.1 is new, distal periaortic thoracic density SUV 5.7 was 5.1. No FDG avid findings in the abdomen, pelvis or inguinal areas. Findings are most consistent with pseudo-progression as patient presentation, breathing and in general, is improved from presentation. Her pleural fluid output has decreased. No other significant side effects from immunotherapy, no other evidence to suggest disease progression. -Agree with plan of care, assess and correct what is going on in the right lung right now. -Cont IO as prescribed. Next appt 11/21 Rash -Located around the Pleurx catheter. -Relief of symptoms with topical steroid and benadryl. -rash is less puritic, less red Epigastric pain -No pain today -Cont PPI twice a day -Antiemetics available -most likely pleuritic pain. -Added norco. Rx sent from office for 7 day Rx Anemia -Chronic, multifactorial including CKD, Hx of chemo, transplant, inflammation and malignancy -Transfuse for Hgb <7 or if symptomatic -Anemia work up will be done in ofc CKD -Ofc labs reviewed, pt creatinine baseline range is 1.7-2.5 Sending new orders to [facility]. Pulm wants her assessed Thursday and possible pl fluid drainage Family requesting Rx for w/c. Pt needs rest periods every 5-10 feet-too frequent for longer distances to use cane or walker. Caregivers are available for assistance 13/10, pt would be able to propel herself short distances Ok for DC from Hem/Onc standpoint once cleared by Attending and consulting Physicians
[2022-11-13 12:55] LABS: Appearance,Urine Clear (Clear); Bilirubin,Urine Negative (Negative); Blood,Urine Negative (Negative); Color,Urine Yellow; Glucose,Urine (UA) Negative (Negative); Ketones,Urine Negative (Negative); Leukocyte Esterase,Urine Trace (Negative); Mucus,Urine Rare /hpf; Nitrite,Urine Negative (Negative); PH, Urine 5.5 (5.0-8.0); Protein,Urine 1+ (Negative); RBC,Urine 4 /hpf (0-5); Specific Gravity,Urine 1.011 (1.001-1.035); Urobilinogen,Urine <2.0 mg/dL (<2.0); WBC,Urine 7 /hpf (0-5)
[2022-11-13 14:02] VITALS: PULSE 99; RESP 16; TEMP 98.4
[2022-11-13 14:16] VITALS: BP 122/56
[2022-11-13 14:36] VITALS: BMI 20.7
--- NOTE | 2022-11-13 17:54 | P.DS ---
Providers Date of admission: 11/11/22 11:24 Expected date of discharge: 11/13/22 Attending physician: Alex Milligan Consults: 11/11/22 13:58 Consult Physician Routine Consulting Provider: Miguelangel Peña Consult Reason/Comments: pleural effusion, possible empyema Do you want consulting provider notified?: Already Contacted 11/11/22 14:30 Consult Physician Routine Consulting Provider: Melinda Kaur Consult Reason/Comments: pleural effusion/possible empyema Do you want consulting provider notified?: Yes 11/11/22 15:14 Consult Physician Routine Consulting Provider: Patience Fisher Consult Reason/Comments: lung cancer Do you want consulting provider notified?: Already Contacted Primary care physician: Shiloh Braswell [facility] Course: Chief Complaint: Lower chest pain This is a pleasant 82-year-old patient who follows with Dr. Shiloh braswell. [place] Department Supervisor Dr. Kaur, oncologist Dr. Fisher, She has a diagnosis of significant metastatic adenocarcinoma of the lung maintained on IV every 2 to every 3 weeks. Recurrent right pleural effusion. Had a Pleurx catheter placed on August 2022. Home care has been draining clear fluid weekly. And the amount has been decreasing. She presented to the ER with significant pressure in the lower chest epigastric area. Computed tomography scan of the chest showed significant right pleural effusion. TPA and Pulmozyme was placed in the Pleurx catheter about 5 20 mL was drained. Patient chest pressure improved off of that. No fever no chills. Appetite is fair. Patient is accompanied by her son and [id number] at the bedside. Patient is given IV vancomycin and IV Zosyn in the ER. 11/13/2022: Chest tube removed by cardiothoracic. Patient will follow up with her appointments. Feeling well. Tolerating diet. Potassium improved. Care was discussed with the patient and family at the bedside. Cleared by cardiothoracic and Dr. Kaur from pulmonary. Patient have repeat labs done outpatient next week. Discoloration of the right side of the abdominal wall better. His local hydrocortisone cream. Past medical history to include: Atrial fibrillation, adenocarcinoma metastatic of the lung, hypertension, arthritis, hypothyroid, multiple myeloma with history of stem cell transplant 2010 with chemotherapy. Basal cell skin cancer, malignant right pleural effusion Social history: Lives alone. Alcohol occasionally. Smoked a pack a day since the age of 20 stopped in 1986. Physical examination: VITAL SIGNS: 98.4, 99, 16, 1 22 x 56, 95% room air GENERAL: Declining in bed, comfortable EYES: Pupils equal. Conjunctiva normal. HEENT: External appearance of nose and ears normal, oral cavity grossly normal. NECK: JVD not raised; masses not palpable. HEART: First and second heart sounds are normal; no edema. LUNGS: Respiratory rate normal; clear to auscultation. ABDOMEN: Soft, nontender, liver spleen not palpable, no masses palpable. Pleurx catheter in the epigastric area. Some area of discoloration on the right site. Nontender : Better PSYCH: Alert and oriented x3; mood and affect normal. MUSCULOSKELETAL:No Clubbing/cyanosis;muscles-grossly intact. OA INVESTIGATIONS, reviewed in the clinical context: November 13: BUN 51 creatinine 2.28 November 12: White count 9.4 hemoglobin 8.8 platelets 333 sodium 134 potassium 5.7 BUN 43 creatinine 2.47 November 11: White count 10.4 hemoglobin 10.1 platelets 438 potassium 4.9 BUN 35 creatinine 1.4 Troponin I 3 negative ProBNP 66335 EKG tracing personally reviewed by me-atrial flutter fibrillation rate 86 Chest x-ray film personally reviewed by me-large right pleural effusion CT chest without contrast: Moderate right-sided pleural effusion with thick wall and foci of gas. Right pleural catheter. Appropriate position. Associated S is a right middle and lower lobe. Assessment and plan: -Malignant right pleural fusion. Decreased output from obstructed Pleurx catheter. Patient did receive TPA. Had a good output from the same. This was the cause of patient's chest pain. -Metastatic adenocarcinoma of the lung. Being followed by Dr. Cho. keytruda IV every 2 to every 3 weeks. -Hyperkalemia from acute kidney injury.: Improved Kayexalate 30 g given. Low potassium diet. -Acute kidney injury. Creatinine gone up from 1.4-2.47. Do not have a baseline prior creatinine. IV fluids. UA. Renal ultrasound. Repeat BMP outpatient -Persistent atrial flutter fibrillation. Rate controlled. Eliquis. -Hypothyroid Synthroid 150 g a day -Hyperlipidemia Zocor 10 mg every 48 hours -Essential hypertension Amlodipine 10 mg a day Disposition: Home Outpatient: BMP: 5 days 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., BASAL CELL SKIN CANCER., STATES "LOW KIDNEY FUNCTION"., RIGHT PLEURAL EFFUSION WITH THORACENTESIS X2, lung cancer History of Any Multi-Drug Resistant Organisms: None Reported Past Surgical History: Tubal Ligation Additional Past Surgical History / Comment(s): RIGHT ANKLE FX SURGERY WITH HARDWARE, CATARACTS, BONE MARROW BX'S .,STEM CELL TRANSPLANT 2010., THORACENTESIS X2; right-sided Pleurx catheter placement August 2022 Past Anesthesia/Blood Transfusion Reactions: No Reported Reaction Past Psychological History: No Psychological Hx Reported Smoking Status: Former smoker Past Alcohol Use History: Occasional Additional Past Alcohol Use History / Comment(s): QUIT SMOKING 1986, HX OF 1PPD, STARTED SMOKING AGE 20. Past Drug Use History: None Reported - Past Family History Father Family Medical History: Cancer Additional Family Medical History / Comment(s): LUNG CANCER Medications and Allergies Home Medications Medication Instructions Recorded Confirmed Type Apixaban [Eliquis] 5 mg PO BID 06/19/22 11/11/22 History Calcium Citrate/Vitamin D3 1 tab PO DAILY 06/19/22 11/11/22 History [Calcium Cit 315-Vit D3 6.25 Mcg (250 Iu)] Cholecalciferol [Vitamin D3 (25 25 mcg PO DAILY 06/19/22 11/11/22 History Mcg = 1000 Iu)] Cyanocobalamin (Vitamin B-12) 1,000 mcg PO DAILY 06/19/22 11/11/22 History [Vitamin B-12] Levothyroxine Sodium [Synthroid] 150 mcg PO DAILY 06/19/22 11/11/22 History Magnesium Oxide [Mag-Ox] 400 mg PO BID 06/19/22 11/11/22 History Multivit-Min/Iron/Folic/Lutein 1 tab PO DAILY 06/19/22 11/11/22 History [Centrum Silver Women Tablet] Simvastatin [Zocor] 10 mg PO Q48H 06/19/22 11/11/22 History Sodium Bicarbonate Tab 650 mg PO DAILY 06/19/22 11/11/22 History amLODIPine [Norvasc] 10 mg PO DAILY 06/19/22 11/11/22 History calcitrioL [Calcitriol] 0.5 mcg PO SUTH 06/19/22 11/11/22 History Albuterol Sulfate [Albuterol 2 puff PO RT-Q6H PRN 11/11/22 11/11/22 History Sulfate Hfa] Betamethasone Dipropionate 1 applic TOPICAL BID 11/11/22 11/11/22 History [Diprolene AF 0.05% Cream] Mv-Mn/Om3/Dha/Epa/Fish/Lut/Isaiah 1 cap PO DAILY 11/11/22 11/11/22 History [Ocuvite Adult 50 Plus Softgel] Pembrolizumab [Keytruda] 200 mg IV Q21D 11/11/22 11/11/22 History Allergies Allergy/AdvReac Type Severity Reaction Status Date / Time No Known Allergies Allergy Verified 11/11/22 09:34 Physical Exam Vitals: Vital Signs Temp Pulse Pulse Resp BP BP Pulse Ox 11/12/22 08:09 78 11/12/22 08:00 98.1 F 62 18 118/62 94 L 11/12/22 07:58 78 94 L 11/12/22 02:00 70 16 94/56 95 11/11/22 19:24 98.5 F 93 16 101/64 96 11/11/22 18:38 95 11/11/22 15:20 98.9 F 89 20 99/56 92 L 11/11/22 12:00 93 13 94/64 97 Intake and Output 11/11/22 11/12/22 11/12/22 22:59 06:59 14:59 Intake Total 20 20 118 Output Total 140 310 Balance -120 -290 118 Intake: Intake, IV Titration 20 20 Amount Sodium Chloride 0.9% 1, 20 20 000 ml @ 20 mls/hr IV . Q24H [facility] Rx#:[id number] Oral 118 Output: Chest Tube Drainage 140 310 Pleural Catheter Right 140 310 Other: Voiding Method Toilet Toilet # Voids 1 1 Weight 56.699 kg Results CBC & Chem 7: 11/12/22 05:49 11/12/22 05:49 Labs: Abnormal Lab Results - Last 24 Hours (Table) 11/12/22 11/12/22 Range/Units 05:49 05:49 RBC 2.89 L (3.80-5.40) m/uL Hgb 8.8 L (11.4-16.0) gm/dL Hct 28.3 L (34.0-46.0) % Sodium 134 L (137-145) mmol/L Potassium 5.7 H (3.5-5.1) mmol/L BUN 43 H (7-17) mg/dL Creatinine 2.47 H (0.52-1.04) mg/dL Calcium 8.3 L (8.4-10.2) mg/dL Thrombosis Risk Factor Assmnt - Choose All That Apply Each Factor Represents 1 point: Serious lung disease incl. pneumonia (< 1month) Each Risk Factor Represents 3 Points: Age 75 years or older Thrombosis Risk Factor Assessment Total Risk Factor Score: 4 Thrombosis Risk Factor Assessment Level: Moderate Risk Additional CC's: Shiloh Braswell Plan - Discharge Summary Discharge Rx Participant: Yes New Discharge Prescriptions: New Hydrocortisone Cream [Hydrocortisone 1% Cream] 1 applic TOPICAL TID each Continue Sodium Bicarbonate Tab 650 mg PO DAILY Simvastatin [Zocor] 10 mg PO Q48H Cholecalciferol [Vitamin D3 (25 Mcg = 1000 Iu)] 25 mcg PO DAILY Cyanocobalamin (Vitamin B-12) [Vitamin B-12] 1,000 mcg PO DAILY Multivit-Min/Iron/Folic/Lutein [Centrum Silver Women Tablet] 1 tab PO DAILY Calcium Citrate/Vitamin D3 [Calcium Cit 315-Vit D3 6.25 Mcg (250 Iu)] 1 tab PO DAILY Mv-Mn/Om3/Dha/Epa/Fish/Lut/Isaiah [Ocuvite Adult 50 Plus Softgel] 1 cap PO DAILY Betamethasone Dipropionate [Diprolene AF 0.05% Cream] 1 applic TOPICAL BID Albuterol Sulfate [Albuterol Sulfate Hfa] 2 puff PO RT-Q6H PRN PRN Reason: Shortness Of Breath Pembrolizumab [Keytruda] 200 mg IV Q21D amLODIPine [Norvasc] 10 mg PO DAILY Levothyroxine Sodium [Synthroid] 150 mcg PO DAILY calcitrioL [Calcitriol] 0.5 mcg PO SUTH Magnesium Oxide [Mag-Ox] 400 mg PO BID Changed Apixaban [Eliquis] 2.5 mg PO BID #0 Discharge Medication List Calcium Citrate/Vitamin D3 [Calcium Cit 315-Vit D3 6.25 Mcg (250 Iu)] 1 tab PO DAILY 03/30/23 [History] Cholecalciferol [Vitamin D3 (25 Mcg = 1000 Iu)] 25 mcg PO DAILY 06/19/22 [History] Cyanocobalamin (Vitamin B-12) [Vitamin B-12] 1,000 mcg PO DAILY 06/19/22 [History] Levothyroxine Sodium [Synthroid] 150 mcg PO DAILY 06/19/22 [History] Magnesium Oxide [Mag-Ox] 400 mg PO BID 06/19/22 [History] Multivit-Min/Iron/Folic/Lutein [Centrum Silver Women Tablet] 1 tab PO DAILY 06/19/22 [History] Simvastatin [Zocor] 10 mg PO Q48H 06/19/22 [History] Sodium Bicarbonate Tab 650 mg PO DAILY 06/19/22 [History] amLODIPine [Norvasc] 10 mg PO DAILY 06/19/22 [History] calcitrioL [Calcitriol] 0.5 mcg PO SUTH 06/19/22 [History] Albuterol Sulfate [Albuterol Sulfate Hfa] 2 puff PO RT-Q6H PRN 11/11/22 [History] Betamethasone Dipropionate [Diprolene AF 0.05% Cream] 1 applic TOPICAL BID 11/11/22 [History] Mv-Mn/Om3/Dha/Epa/Fish/Lut/Isaiah [Ocuvite Adult 50 Plus Softgel] 1 cap PO DAILY 11/11/22 [History] Pembrolizumab [Keytruda] 200 mg IV Q21D 11/11/22 [History] Apixaban [Eliquis] 2.5 mg PO BID #0 11/13/22 [Rx] Hydrocortisone Cream [Hydrocortisone 1% Cream] 1 applic TOPICAL TID each 11/13/22 [Rx] Follow up Appointment(s)/Referral(s): Michael Wagoner MD [STAFF PHYSICIAN] - As Needed (Please call our office for Pleurx removal once drainage is less than 50 mL for 3 times in a row) Shiloh Braswell DO [Primary Care Provider] - 1-2 days Patience Fisher MD [STAFF PHYSICIAN] - 11/21/22 10:30 am (This is a treatment appt) Activity/Diet/Wound Care/Special Instructions: PLEURX DISCHARGE INSTRUCTIONS 1. Do not drain more than 1 liter or 1000 mL in 24 hours. 2. New drainage bottle needed with each drainage. 3. Drainage frequency dictated by patient symptoms, may be every day, every other day, weekly, or however often the patient is symptomatic. 4. Please notify PRODUCTION LEADER or office if temperature >101F, excessive pain at insertion site, drainage consistency changes to cloudy or smells bad, catheter falls out, or anything else that concerns you. 5. Contact surgery office with weekly drainage amounts. May fax the amounts. 6. Once drainage is less than 50 mL three times in a row, notify the surgery office for possible removal. Surgery office: , fax Discharge Disposition: HOME WITH HOME HEALTH SERVICES
== END 2022-11-13 15:46 | disposition home health service (06) | DRG 919 ==
LOC: EC 09:27 → 6NMEDSUR 11:24 → OBSVTOIN 11:24 → 6NMEDSUR 13:31 → 1SOBS 14:37
PROVIDERS: ADMIT Hospitalist; ATTEND Hospitalist
PROC: 3E0L3GC Introduction of Other Therapeutic Substance into Pleural Cavity, Percutaneous Approach (ICD-10-PCS; principal; 2022-11-12)
DX: T85.698A Other mechanical complication of other specified internal prosthetic devices, implants and grafts, initial encounter (principal); J96.01 Acute respiratory failure with hypoxia; C34.90 Malignant neoplasm of unspecified part of unspecified bronchus or lung; J91.0 Malignant pleural effusion; C78.2 Secondary malignant neoplasm of pleura; Z94.84 Stem cells transplant status; N18.4 Chronic kidney disease, stage 4 (severe); N17.9 Acute kidney failure, unspecified; I48.92 Unspecified atrial flutter; J93.83 Other pneumothorax; J98.11 Atelectasis; I48.19 Other persistent atrial fibrillation; E87.5 Hyperkalemia; M19.90 Unspecified osteoarthritis, unspecified site; E78.5 Hyperlipidemia, unspecified; D63.1 Anemia in chronic kidney disease; E03.9 Hypothyroidism, unspecified; I12.9 Hypertensive chronic kidney disease with stage 1 through stage 4 chronic kidney disease, or unspecified chronic kidney disease; Z85.79 Personal history of other malignant neoplasms of lymphoid, hematopoietic and related tissues; Z87.891 Personal history of nicotine dependence; Z71.3 Dietary counseling and surveillance; Z60.2 Problems related to living alone; Z79.01 Long term (current) use of anticoagulants; Z79.890 Hormone replacement therapy; Z79.899 Other long term (current) drug therapy; Z80.1 Family history of malignant neoplasm of trachea, bronchus and lung; Z85.828 Personal history of other malignant neoplasm of skin; Z92.21 Personal history of antineoplastic chemotherapy
CPT/HCPCS: 36415; 37195; 71046; 71250; 76770; 80048; 80053; 81001; 83735; 83880; 84484; 85025; 85610; 85730; 87070; 87205; 93005; 94640; 94760; 96374; 96375; 99291

== ENCOUNTER 2023-03-18 10:12 | Inpatient (IN) | payer MEDICARE ==
--- NOTE | 2023-03-18 10:30 | ED ---
General Adult HPI <LeonHarshal bob - Last Filed: 03/18/23 10:34> - General Source: RN notes reviewed, old records reviewed, Caregiver Mode of arrival: ambulatory Limitations: altered mental status - History of Present Illness -: week(s) Location: left, right, upper extremity, lower extremity Radiation: non-radiation Severity scale (1-10): 6 Quality: stabbing Consistency: constant Improves with: none Worsens with: none Associated Symptoms: loss of appetite, nausea/vomiting, shortness of breath, weakness Treatments Prior to Arrival: none <Markie Valentin - Last Filed: 03/22/23 13:23> - General Stated complaint: SOB Time Seen by Provider: 03/18/23 10:29 - History of Present Illness Initial comments: 82 year-old female with a past medical history significant for adenocarcinoma and recurrent right pleural effusion presents to the ED with a chief complaint of shortness of breath. Patient notes history of lung cancer and notes shortness of breath with this however states over the past 2 days has been more short of breath than usual. Also notes some swelling in her left arm. (JuliusHarshal) This is a 82-year-old female to the emergency department for evaluation. Patient presents to the emergency department today for evaluation shortness of breath and significant abdominal swelling swelling lower extremity swelling and shortness of breath debility decreased activity level. Patient does have history of cancer with lung cancer and pleural effusion. Patient states her also is noting swelling in her left arm (Markie Valentin) - Related Data Home Medications Medication Instructions Recorded Confirmed Calcium Citrate/Vitamin D3 1 tab PO DAILY 06/19/22 03/21/23 [Calcium Cit 315-Vit D3 6.25 Mcg (250 Iu)] Cholecalciferol [Vitamin D3 (25 25 mcg PO DAILY 06/19/22 03/21/23 Mcg = 1000 Iu)] Cyanocobalamin (Vitamin B-12) 1,000 mcg PO DAILY 06/19/22 03/21/23 [Vitamin B-12] Levothyroxine Sodium [Synthroid] 150 mcg PO DAILY 06/19/22 03/21/23 Magnesium Oxide [Mag-Ox] 400 mg PO BID 06/19/22 03/21/23 Multivit-Min/Iron/Folic/Lutein 1 tab PO DAILY 06/19/22 03/21/23 [Centrum Silver Women Tablet] Simvastatin [Zocor] 10 mg PO Q48H 06/19/22 03/21/23 Sodium Bicarbonate Tab 650 mg PO DAILY 06/19/22 03/21/23 amLODIPine [Norvasc] 10 mg PO DAILY 06/19/22 03/21/23 calcitrioL [Calcitriol] 0.5 mcg PO SUTH 06/19/22 03/21/23 Albuterol Sulfate [Albuterol 2 puff INHALATION RT-Q6H PRN 11/11/22 03/21/23 Sulfate Hfa] Mv-Mn/Om3/Dha/Epa/Fish/Lut/Isaiah 1 cap PO DAILY 11/11/22 03/21/23 [Ocuvite Adult 50 Plus Softgel] Pembrolizumab [Keytruda] 200 mg IV Q21D 11/11/22 03/21/23 Apixaban [Eliquis] 2.5 mg PO BID 03/18/23 03/21/23 Furosemide [Lasix] 20 mg PO BID 03/18/23 03/21/23 Potassium Chloride ER [K-Dur 20] 20 meq PO DAILY 03/18/23 03/21/23 Allergies Allergy/AdvReac Type Severity Reaction Status Date / Time No Known Allergies Allergy Verified 03/18/23 16:22 Review of Systems ROS Other: All systems not noted in ROS Statement are negative. <Harshal Madrid - Last Filed: 03/18/23 10:34> ROS Other: All systems not noted in ROS Statement are negative. <Markie Valentin - Last Filed: 03/22/23 13:23> ROS Statement: Those systems with pertinent positive or pertinent negative responses have been documented in the HPI. 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., BASAL CELL SKIN CANCER., STATES "LOW KIDNEY FUNCTION"., RIGHT PLEURAL EFFUSION WITH THORACENTESIS X2, lung cancer History of Any Multi-Drug Resistant Organisms: None Reported Past Surgical History: Tubal Ligation Additional Past Surgical History / Comment(s): RIGHT ANKLE FX SURGERY WITH HARDWARE, CATARACTS, BONE MARROW BX'S .,STEM CELL TRANSPLANT 2010., THORACENTESIS X2; right-sided Pleurx catheter placement August 2022 Past Anesthesia/Blood Transfusion Reactions: No Reported Reaction Past Psychological History: No Psychological Hx Reported Smoking Status: Former smoker Past Alcohol Use History: Occasional Additional Past Alcohol Use History / Comment(s): QUIT SMOKING 1986, HX OF 1PPD, STARTED SMOKING AGE 20. Past Drug Use History: None Reported - Past Family History Father Family Medical History: Cancer Additional Family Medical History / Comment(s): LUNG CANCER <Harshal Madrid - Last Filed: 03/18/23 10:34> General Exam <Harshal Madrid - Last Filed: 03/18/23 10:34> General appearance: alert, in no apparent distress Head exam: Present: atraumatic, normocephalic, normal inspection Eye exam: Present: normal appearance, PERRL, EOMI. Absent: scleral icterus, c onjunctival injection, periorbital swelling ENT exam: Present: normal exam, mucous membranes moist Neck exam: Present: normal inspection. Absent: tenderness, meningismus, lymphadenopathy Respiratory exam: Present: normal lung sounds bilaterally. Absent: respiratory distress, wheezes, rales, rhonchi, stridor Cardiovascular Exam: Present: regular rate, normal rhythm, normal heart sounds. Absent: systolic murmur, diastolic murmur, rubs, gallop, clicks GI/Abdominal exam: Present: soft, normal bowel sounds. Absent: distended, tenderness, guarding, rebound, rigid Extremities exam: Present: normal inspection, full ROM, normal capillary refill. Absent: tenderness, pedal edema, joint swelling, calf tenderness Back exam: Present: normal inspection Neurological exam: Present: alert, oriented X3, CN II-XII intact Psychiatric exam: Present: normal affect, normal mood Skin exam: Present: warm, dry, intact, normal color. Absent: rash <Markie Valentin - Last Filed: 03/22/23 13:23> - General Exam Comments Initial Comments: Visual Physical Exam Vital signs reviewed General: nontoxic, no acute distress. Head: Normocephalic, atraumatic Eyes: PERRLA, EOMI ENT: Airway patent Chest: Nonlabored breathing Skin: No visual rash, normal skin tone Neuro: Alert and oriented 3 Musculoskeletal: No gross abnormalities (Harshal Madrid) Course <Markie Valentin - Last Filed: 03/22/23 13:23> Vital Signs 03/18/23 03/18/23 03/18/23 10:53 16:18 19:13 Temperature 97.6 F Pulse Rate 82 90 82 Respiratory 18 19 18 Rate Blood Pressure 110/72 126/79 103/72 O2 Sat by Pulse 98 94 L 98 Oximetry 03/18/23 20:00 Temperature Pulse Rate Respiratory Rate Blood Pressure 101/66 O2 Sat by Pulse Oximetry - Reevaluation(s) Reevaluation #1: 03/18/23 20:08 Medical record is reviewed (Markie Valentin) Reevaluation #2: 03/18/23 20:09 patient has no change in symptoms here in the ER (Markie Valentin) Reevaluation #3: 03/18/23 20:09 Patient informed of results and questions answered (Markie Valentin) Reevaluation #4: 03/18/23 20:09 Was pt. sent in by a medical professional or institution (, PA, SENIOR LEAD JAVA DEVELOPER, urgent care, hospital, or fci...) When possible be specific @ -no Did you speak to anyone other than the patient for history (EMS, parent, family, police, friend...)? What history was obtained from this source @ -no Did you review nursing and triage notes (agree or disagree)? Why? @ -agree Are old charts reviewed (outside hosp., previous admission, EMS record, old EKG, old radiological studies, urgent care reports/EKG's, fci records)? Report findings @ -yes Differential Diagnosis (chest pain, altered mental status, abdominal pain women, abdominal pain men, vaginal bleeding, weakness, fever, dyspnea, syncope, headache, dizziness, GI bleed, back pain, seizure, CVA, palpatations, mental health, musculoskeletal)? @ -prior EKG interpreted by me (3pts min.). @ -yes X-rays interpreted by me (1pt min.). @ -yes increasing pleural effusion CT interpreted by me (1pt min.). @ -no U/S interpreted by me (1pt. min.). @ -no What testing was considered but not performed or refused? (CT, X-rays, U/S, labs)? Why? @ -none What meds were considered but not given or refused? Why? @ -none Did you discuss the management of the patient with other professionals (professionals i.e. , PA, SENIOR LEAD JAVA DEVELOPER, lab, RT, psych nurse, long term care social worker, histology technologist, teacher, environmental protection officer, protective services case worker)? Give summary @ -no Was smoking cessation discussed for >3mins.? @ -no Was critical care preformed (if so, how long)? @ -no Were there social determinants of health that impacted care today? How? (Homelessness, low income, unemployed, alcoholism, drug addiction, transp ortation, low edu. Level, literacy, decrease access to med. care, custodial, rehab)? @ -none Was there de-escalation of care discussed even if they declined (Discuss DNR or withdrawal of care, Hospice)? DNR status @ -no What co-morbidities impacted this encounter? (DM, HTN, Smoking, COPD, CAD, Cancer, CVA, ARF, Chemo, Hep., AIDS, mental health diagnosis, sleep apnea, morbid obesity)? @ -none Was patient admitted / discharged? Hospital course, mention meds given and route, prescriptions, significant lab abnormalities, going to OR and other pertinent info. @ - 82 female to the emergency department today for evaluation of a significant amount of shortness of breath lower extremity edema and swelling. Patient presents emergency department for shortness of breath and dyspnea. Significant will be admitted for evaluation by thoracic surgery Admitted Undiagnosed new problem with uncertain prognosis? @ -no Drug Therapy requiring intensive monitoring for toxicity (Heparin, Nitro, Insulin, Cardizem)? @ -no Were any procedures done? @ -no Diagnosis/symptom? @ -Increasing right pleural effusion Acute, or Chronic, or Acute on Chronic? @ -Acute Uncomplicated (without systemic symptoms) or Complicated (systemic symptoms)? @ -Complicated Side effects of treatment? @ -no Exacerbation, Progression, or Severe Exacerbation? @ -exacerbation Poses a threat to life or bodily function? How? (Chest pain, USA, NV, pneumonia, PE, COPD, DKA, ARF, appy, cholecystitis, CVA, Diverticulitis, Homicidal, Suicidal, threat to staff... and all critical care pts) @ -yes with extreme of age and underlying CA (Roskopp,Markie B) Reevaluation #5: 03/18/23 20:10 Differential Dyspnea: Coronary syndrome, arrhythmia, tamponade, asthma, COPD, pulmonary embolism, pneumonia, pneumothorax, pulmonary effusion, anaphylaxis, diabetic ketoacidosis, flailed chest, pulmonary contusion, diaphragmatic rupture, anemia, neuromuscular, this is not meant to be an all-inclusive list. Differential Weakness: Hypoglycemia, shock, sepsis, hyponatremia, anemia, infection, NV, ETOH, adverse medicine reaction, overdose, stroke, this is not meant to be an all-inclusive list. (Markie Valentin) - Consultations Consultation #1: Spoke with Srini were agrees to admit this patient (Markie Valentin) EKG Findings - EKG Comments: EKG Findings:: EKG is A. fib 82 QRS 112 QTC 431 <Markie Valentin - Last Filed: 03/22/23 13:23> Medical Decision Making <Harshal Madrid - Last Filed: 03/18/23 10:34> - Lab Data Result diagrams: 03/19/23 05:40 03/21/23 06:27 - Radiology Data Radiology results: report reviewed (Chest x-rays positive for increasing right pleural effusion), image reviewed <Markie Valentin - Last Filed: 03/22/23 13:23> - Medical Decision Making Quicknote portion performed. Signed Harshal Madrid PA-C (Harshal Madrid) 82 female to the emergency department today for evaluation of a significant amount of shortness of breath lower extremity edema and swelling. Patient presents emergency department for shortness of breath and dyspnea. Significant will be admitted for evaluation by thoracic surgery (Markie Valentin) - Lab Data Lab Results 03/18/23 03/18/23 03/18/23 Range/Units 10:56 10:56 10:56 WBC 7.0 (3.8-10.6) k/uL RBC 3.18 L (3.80-5.40) m/uL Hgb 9.4 L (11.4-16.0) gm/dL Hct 32.2 L (34.0-46.0) % MCV 101.3 H (80.0-100.0) fL MCH 29.5 (25.0-35.0) pg MCHC 29.1 L (31.0-37.0) g/dL RDW 20.7 H (11.5-15.5) % Plt Count 366 (150-450) k/uL Estimated Plt Count (Adequate) MPV 7.8 Immature Gran % (Auto) % Absolute Nucleated RBC % Neutrophils % 84 % Lymphocytes % 6 % Monocytes % 6 % Eosinophils % 1 % Basophils % 1 % Immature Gran # (0.00-0.04) X 10*3/uL Neutrophils # 5.8 (1.3-7.7) k/uL Lymphocytes # 0.4 L (1.0-4.8) k/uL Monocytes # 0.4 (0-1.0) k/uL Eosinophils # 0.1 (0-0.7) k/uL Basophils # 0.1 (0-0.2) k/uL NRBC/100 WBC Diff (0.00-0.01) X 10*3/uL Manual Slide Review Hypochromasia Marked Poikilocytosis Slight Anisocytosis Moderate Macrocytosis Moderate Macrocytosis (manual) PT 11.3 (10.0-12.5) sec INR 1.0 (<1.2) APTT 26.9 (22.0-30.0) sec Sodium 144 (137-145) mmol/L Potassium 5.1 (3.5-5.1) mmol/L Chloride 106 (98-107) mmol/L Carbon Dioxide 25 (22-30) mmol/L Anion Gap 13 mmol/L BUN 69 H (7-17) mg/dL Creatinine 2.15 H (0.52-1.04) mg/dL Est GFR (CKD-EPI) (>=60) Est GFR (CKD-EPI)AfAm 24 (>60 ml/min/1.73 sqM) Est GFR (CKD-EPI)NonAf 21 (>60 ml/min/1.73 sqM) BUN/Creatinine Ratio (12.00-20.00) Ratio Glucose 101 H (74-99) mg/dL Plasma Lactic Acid Jayesh (0.7-2.0) mmol/L Calcium 9.0 (8.4-10.2) mg/dL Phosphorus (2.4-5.1) mg/dL Magnesium (1.5-2.4) mg/dL Iron (50-170) UG/DL TIBC (228-460) UG/DL % Saturation (12.00-45.00) Transferrin (204.0-354.0) mg/dL Ferritin (10.0-291.0) ng/mL Total Bilirubin 0.5 (0.2-1.3) mg/dL AST 24 (14-36) U/L ALT 22 (4-34) U/L Alkaline Phosphatase 69 (38-126) U/L Troponin I (0.000-0.034) ng/mL NT-Pro-B Natriuret Pep 19353 pg/mL Total Protein 6.8 (6.3-8.2) g/dL Albumin 3.5 (3.5-5.0) g/dL Globulin (1.6-3.3) g/dL Albumin/Globulin Ratio (1.60-3.17) Ratio Lipase (14-63) U/L Urine Color Urine Appearance (Clear) Urine pH (5.0-8.0) Ur Specific [place] (1.001-1.035) Urine Protein (Negative) Urine Glucose (UA) (Negative) Urine Ketones (Negative) Urine Blood (Negative) Urine Nitrite (Negative) Urine Bilirubin (Negative) Urine Urobilinogen (<2.0) mg/dL Ur Leukocyte Esterase (Negative) Urine RBC (0-5) /hpf Urine WBC (0-5) /hpf Ur Squamous Epith Cells (0-4) /hpf Urine Bacteria (None) /hpf Urine Mucus (None) /hpf 03/18/23 03/18/23 03/18/23 Range/Units 10:56 10:56 10:56 WBC (3.8-10.6) k/uL RBC (3.80-5.40) m/uL Hgb (11.4-16.0) gm/dL Hct (34.0-46.0) % MCV (80.0-100.0) fL MCH (25.0-35.0) pg MCHC (31.0-37.0) g/dL RDW (11.5-15.5) % Plt Count (150-450) k/uL Estimated Plt Count (Adequate) MPV Immature Gran % (Auto) % Absolute Nucleated RBC % Neutrophils % % Lymphocytes % % Monocytes % % Eosinophils % % Basophils % % Immature Gran # (0.00-0.04) X 10*3/uL Neutrophils # (1.3-7.7) k/uL Lymphocytes # (1.0-4.8) k/uL Monocytes # (0-1.0) k/uL Eosinophils # (0-0.7) k/uL Basophils # (0-0.2) k/uL NRBC/100 WBC Diff (0.00-0.01) X 10*3/uL Manual Slide Review Hypochromasia Poikilocytosis Anisocytosis Macrocytosis Macrocytosis (manual) PT (10.0-12.5) sec INR (<1.2) APTT (22.0-30.0) sec Sodium (137-145) mmol/L Potassium (3.5-5.1) mmol/L Chloride (98-107) mmol/L Carbon Dioxide (22-30) mmol/L Anion Gap mmol/L BUN (7-17) mg/dL Creatinine (0.52-1.04) mg/dL Est GFR (CKD-EPI) (>=60) Est GFR (CKD-EPI)AfAm (>60 ml/min/1.73 sqM) Est GFR (CKD-EPI)NonAf (>60 ml/min/1.73 sqM) BUN/Creatinine Ratio (12.00-20.00) Ratio Glucose (74-99) mg/dL Plasma Lactic Acid Jayesh 0.8 (0.7-2.0) mmol/L Calcium (8.4-10.2) mg/dL Phosphorus (2.4-5.1) mg/dL Magnesium (1.5-2.4) mg/dL Iron (50-170) UG/DL TIBC (228-460) UG/DL % Saturation (12.00-45.00) Transferrin (204.0-354.0) mg/dL Ferritin (10.0-291.0) ng/mL Total Bilirubin (0.2-1.3) mg/dL AST (14-36) U/L ALT (4-34) U/L Alkaline Phosphatase (38-126) U/L Troponin I 0.021 (0.000-0.034) ng/mL NT-Pro-B Natriuret Pep pg/mL Total Protein (6.3-8.2) g/dL Albumin (3.5-5.0) g/dL Globulin (1.6-3.3) g/dL Albumin/Globulin Ratio (1.60-3.17) Ratio Lipase (14-63) U/L Urine Color Yellow Urine Appearance Cloudy H (Clear) Urine pH 5.0 (5.0-8.0) Ur Specific [place] 1.013 (1.001-1.035) Urine Protein Trace H (Negative) Urine Glucose (UA) Negative (Negative) Urine Ketones Negative (Negative) Urine Blood Moderate H (Negative) Urine Nitrite Negative (Negative) Urine Bilirubin Negative (Negative) Urine Urobilinogen <2.0 (<2.0) mg/dL Ur Leukocyte Esterase Negative (Negative) Urine RBC 101 H (0-5) /hpf Urine WBC 9 H (0-5) /hpf Ur Squamous Epith Cells <1 (0-4) /hpf Urine Bacteria Rare H (None) /hpf Urine Mucus Rare H (None) /hpf 03/19/23 03/19/23 03/19/23 Range/Units 05:40 05:40 05:54 WBC 7.37 (3.8-10.6) k/uL RBC 3.07 L (3.80-5.40) m/uL Hgb 8.8 L (11.4-16.0) gm/dL Hct 31.4 L (34.0-46.0) % MCV 102.3 H (80.0-100.0) fL MCH 28.7 (25.0-35.0) pg MCHC 28.0 L (31.0-37.0) g/dL RDW 23.7 H (11.5-15.5) % Plt Count 353 (150-450) k/uL Estimated Plt Count Adequate (Adequate) MPV 9.3 L Immature Gran % (Auto) 0.30 % Absolute Nucleated RBC 0 % Neutrophils % 75.2 % Lymphocytes % 9.8 % Monocytes % 12.2 % Eosinophils % 1.8 % Basophils % 0.7 % Immature Gran # 0.02 (0.00-0.04) X 10*3/uL Neutrophils # 5.55 (1.3-7.7) k/uL Lymphocytes # 0.72 L (1.0-4.8) k/uL Monocytes # 0.90 (0-1.0) k/uL Eosinophils # 0.13 (0-0.7) k/uL Basophils # 0.05 (0-0.2) k/uL NRBC/100 WBC Diff 0 (0.00-0.01) X 10*3/uL Manual Slide Review Morph Only Hypochromasia Poikilocytosis Anisocytosis Macrocytosis Macrocytosis (manual) 2+ A PT (10.0-12.5) sec INR (<1.2) APTT (22.0-30.0) sec Sodium 141 (137-145) mmol/L Potassium 5.5 (3.5-5.1) mmol/L Chloride 106 (98-107) mmol/L Carbon Dioxide 24.4 (22-30) mmol/L Anion Gap 10.60 mmol/L BUN 65.1 H (7-17) mg/dL Creatinine 2.2 H (0.52-1.04) mg/dL Est GFR (CKD-EPI) 22 L (>=60) Est GFR (CKD-EPI)AfAm (>60 ml/min/1.73 sqM) Est GFR (CKD-EPI)NonAf (>60 ml/min/1.73 sqM) BUN/Creatinine Ratio 29.59 H (12.00-20.00) Ratio Glucose 85 (74-99) mg/dL Plasma Lactic Acid Jayesh (0.7-2.0) mmol/L Calcium 9.0 (8.4-10.2) mg/dL Phosphorus 5.4 H (2.4-5.1) mg/dL Magnesium 2.4 (1.5-2.4) mg/dL Iron 10 L (50-170) UG/DL TIBC 329 (228-460) UG/DL % Saturation 3.04 L (12.00-45.00) Transferrin 235.0 (204.0-354.0) mg/dL Ferritin 116.0 (10.0-291.0) ng/mL Total Bilirubin 0.2 L (0.2-1.3) mg/dL AST 22 (14-36) U/L ALT 20 (4-34) U/L Alkaline Phosphatase 61 (38-126) U/L Troponin I (0.000-0.034) ng/mL NT-Pro-B Natriuret Pep pg/mL Total Protein 6.2 (6.3-8.2) g/dL Albumin 3.5 L (3.5-5.0) g/dL Globulin 2.7 (1.6-3.3) g/dL Albumin/Globulin Ratio 1.30 L (1.60-3.17) Ratio Lipase 32 (14-63) U/L Urine Color Urine Appearance (Clear) Urine pH (5.0-8.0) Ur Specific [place] (1.001-1.035) Urine Protein (Negative) Urine Glucose (UA) (Negative) Urine Ketones (Negative) Urine Blood (Negative) Urine Nitrite (Negative) Urine Bilirubin (Negative) Urine Urobilinogen (<2.0) mg/dL Ur Leukocyte Esterase (Negative) Urine RBC (0-5) /hpf Urine WBC (0-5) /hpf Ur Squamous Epith Cells (0-4) /hpf Urine Bacteria (None) /hpf Urine Mucus (None) /hpf Disposition <Harshal Madrid - Last Filed: 03/18/23 10:34> Is patient prescribed a controlled substance at d/c from ED?: No Time of Disposition: 18:30 <Markie Valentin - Last Filed: 03/22/23 13:23> Clinical Impression: Atypical chest pain, Pleural effusion, Acute pulmonary edema, Congestive heart failure, Bilateral leg edema, Recurrent right pleural effusion, Debility, Weakness Disposition: ADMITTED IP TO THIS HOSP
--- NOTE | 2023-03-18 11:18 | XR ---
EXAMINATION TYPE: XR chest 2V DATE OF EXAM: 03/18/2023 10:48 AM CLINICAL INDICATION:Female, 82 years old with history of difficulty breathing; COMPARISON: Chest radiographs from 11/12/2022 TECHNIQUE: XR chest 2V Frontal and lateral views of the chest. FINDINGS: Lungs/Pleura: Right hydropneumothorax with thoracotomy tube. Left posterior costophrenic angle. Pulmonary vascularity: Unremarkable. Heart/mediastinum: Cardiomediastinal silhouette is enlarged and stable. Atherosclerotic calcificatio ns are seen in the aorta. Musculoskeletal: No acute osseous pathology. Other findings: None Lines/Tubes: Right thoracotomy tube with with air-fluid level in the right lung compatible with hydropneumothorax. IMPRESSION: 1. Right thoracotomy tube with hydropneumothorax. 2. Moderate right pleural effusion.
[2023-03-18 11:25] LABS: Anisocytosis Moderate; Basophils # (A) 0.1 k/uL (0-0.2); Basophils % (A) 1 %; Eosinophils # (A) 0.1 k/uL (0-0.7); Eosinophils % (A) 1 %; HCT 32.2 % (34.0-46.0); HGB 9.4 gm/dL (11.4-16.0); Hypochromasia Marked; Lymphocytes # (A) 0.4 k/uL (1.0-4.8); Lymphocytes % (A) 6 %; MCH 29.5 pg (25.0-35.0); MCHC 29.1 g/dL (31.0-37.0); MCV 101.3 fL (80.0-100.0); Macrocytosis Moderate; Mean Platelet Volume 7.8; Monocytes # (A) 0.4 k/uL (0-1.0); Monocytes % (A) 6 %; Neutrophils # (A) 5.8 k/uL (1.3-7.7); Neutrophils % (A) 84 %; Platelet Count 366 k/uL (150-450); Poikilocytosis Slight; RBC 3.18 m/uL (3.80-5.40); RDW 20.7 % (11.5-15.5)
[2023-03-18 11:41] LABS: ALT 22 U/L (4-34); AST 24 U/L (14-36); African American GFR (CKD) 24 (>60 ml/min/1.73 sqM); Albumin 3.5 g/dL (3.5-5.0); Alkaline Phosphatase 69 U/L (38-126); Anion Gap 13 mmol/L; Blood Urea Nitrogen 69 mg/dL (7-17); Carbon Dioxide 25 mmol/L (22-30); Chloride 106 mmol/L (98-107); Glucose 101 mg/dL (74-99); Non-African American GFR(CKD) 21 (>60 ml/min/1.73 sqM); Potassium 5.1 mmol/L (3.5-5.1); Sodium 144 mmol/L (137-145); Total Bilirubin 0.5 mg/dL (0.2-1.3); Total Protein 6.8 g/dL (6.3-8.2)
[2023-03-18 11:42] LABS: Partial Thromboplastin Time 26.9 sec (22.0-30.0); Prothrombin Time 11.3 sec (10.0-12.5)
[2023-03-18 12:10] LABS: NT-Pro-B-Type Natriuretic Pept 31000 pg/mL
--- NOTE | 2023-03-18 12:21 | US ---
EXAMINATION TYPE: US venous doppler duplex UE LT DATE OF EXAM: 03/18/2023 COMPARISON: NONE CLINICAL INDICATION: Female, 82 years old with history of swelling; swelling in left hand, no h/o dvt SIDE PERFORMED: Left TECHNIQUE AND FINDINGS: Grayscale, color doppler, spectral doppler imaging performed of the deep veins of the left upper extr emity, by the field account director; static images are submitted for interpretation. There is normal flow, compressibility and vascular waveforms. Counseling Services Director notes rouleaux flow which c an be commonly seen and usually does not have a clinical impact, but can also be observed when there is a proximal venous obstruction; thus a more proximal DVT cannot be ruled out. [If a contrast CT ch est is performed, recommend injecting contrast via the contralateral arm or either lower extremity.] Left Arm: Negative for DVT - rouleaux flow IMPRESSION: No evidence of DVT in the left upper extremity. Rouleaux flow.
[2023-03-18 17:00] LABS: Appearance,Urine Cloudy (Clear); Bacteria,Urine Rare /hpf; Bilirubin,Urine Negative (Negative); Blood,Urine Moderate (Negative); Color,Urine Yellow; Glucose,Urine (UA) Negative (Negative); Ketones,Urine Negative (Negative); Leukocyte Esterase,Urine Negative (Negative); Mucus,Urine Rare /hpf; Nitrite,Urine Negative (Negative); Protein,Urine Trace (Negative); RBC,Urine 101 /hpf (0-5); Specific Gravity,Urine 1.013 (1.001-1.035); Squamous Epithelial Cell,Urine <1 /hpf (0-4); Urobilinogen,Urine <2.0 mg/dL (<2.0); WBC,Urine 9 /hpf (0-5)
[2023-03-18] MEDS ORDERED: ONDANSETRON 4 MG/2 ML VIAL IVP PRN (18:25)
[2023-03-18] MEDS ORDERED: ACETAMINOPHEN TAB 325 MG TAB PO PRN (18:25)
[2023-03-18] MEDS ORDERED: NALOXONE 0.4 MG/ML 1 ML VIAL IV PRN (18:25)
[2023-03-18] MEDS ORDERED: FUROSEMIDE 10 MG/ML 10 ML VIAL IV STA (18:27)
[2023-03-18] MEDS ORDERED: ALBUTEROL NEBULIZED 2.5 MG/3 ML INHALATION PRN (21:15)
[2023-03-18] MEDS: APIXABAN 2.5 MG TABLET PO SCH (21:59)
[2023-03-18] MEDS: MAGNESIUM OXIDE 400 MG TAB PO SCH (21:59)
[2023-03-19] MEDS: LEVOTHYROXINE 75 MCG TAB PO SCH (05:37)
[2023-03-19] MEDS: MULTIVITAMINS, THERA 1 EACH TAB PO SCH (08:40)
[2023-03-19] MEDS: APIXABAN 2.5 MG TABLET PO SCH ×2 (08:41→20:36)
[2023-03-19] MEDS: CALCIUM CARB-VIT D 500 MG-5 MCG TAB PO SCH (08:41)
[2023-03-19] MEDS: CYANOCOBALAMIN 500 MCG TAB PO SCH (08:41)
[2023-03-19] MEDS: CHOLECALCIFEROL 25 MCG (1000 IU) TABLET PO SCH (08:41)
[2023-03-19] MEDS: MAGNESIUM OXIDE 400 MG TAB PO SCH ×2 (08:41→20:36)
[2023-03-19] MEDS ORDERED: FUROSEMIDE 20 MG TAB PO SCH (09:00)
[2023-03-19] MEDS ORDERED: SODIUM BICARBONATE TAB 650 MG TAB PO SCH (09:00)
[2023-03-19] MEDS ORDERED: ALTEPLASE 2 MG VIAL (CATHFLO) IV STA (09:02)
--- NOTE | 2023-03-19 09:44 | P.GSCN ---
History of Present Illness Consult date: 03/19/23 Reason for Consult: Known to our service from previous Pleurx catheter placement Requesting physician: Markie Valentin History of present illness: This is an 82-year-old female who follows outpatient with Dr. France for primary care, Dr. Kaur for pulmonology, and Dr. Fisher for oncology. She has a history of metastatic lung cancer (adenocarcinoma) currently on no treatment per the patient with recurrent malignant right-sided pleural effusion status post thoracentesis as well as placement of Pleurx catheter, multiple myeloma (2009), stem cell transplant (2010), previous tobacco dependence, chronic atrial fibrillation on Eliquis for anticoagulation, hypertension, hyperlipidemia, hypothyroid, and chronic kidney disease. She had a right-sided Pleurx catheter placed 09/09/[address] Wagoner for recurrent malignant pleural effusion, and had been draining at home. She had presented pack to [facility] emergency room in October with complaints of increased shortness of breath and lack of drainage from her Pleurx catheter. At that time lytics were instilled and patient's Pleurx was connected to a Pleur-evac with significant drainage. She was stabilized in discharge back to home. Unfortunately she developed shortness of breath again and has had no significant drainage from her Pleurx the last couple of weeks per the patient, last attempt was 2 days ago. She presented back to [facility] emergency room for evaluation and treatment. Chest x-ray demonstrated moderate right pleural effusion. Lab work revealed WBC 7.0, hemoglobin 9.4, creatinine 2.15, BNP 31,000, and negative troponin. Vital signs are stable, she remains afebrile, and oxygen saturation remained in the mid to high 90s on 2 LPM NC. The patient is to be admitted for evaluation and treatment with consultation placed to cardiothoracic surgery. Review of Systems Review of systems was completed and was negative except as noted - Respiratory Reports dyspnea 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., BASAL CELL SKIN CANCER., STATES "LOW KIDNEY FUNCTION"., RIGHT PLEURAL EFFUSION WITH THORACENTESIS X2, lung cancer History of Any Multi-Drug Resistant Organisms: None Reported Past Surgical History: Tubal Ligation Additional Past Surgical History / Comment(s): RIGHT ANKLE FX SURGERY WITH HARDWARE, CATARACTS, BONE MARROW TX'S .,STEM CELL TRANSPLANT 2010., THORACENTESIS X2; right-sided Pleurx catheter placement August 2022 Past Anesthesia/Blood Transfusion Reactions: No Reported Reaction Past Psychological History: No Psychological Hx Reported Smoking Status: Former smoker Past Alcohol Use History: Occasional Additional Past Alcohol Use History / Comment(s): QUIT SMOKING 1986, HX OF 1PPD, STARTED SMOKING AGE 20. Past Drug Use History: None Reported - Past Family History Father Family Medical History: Cancer Additional Family Medical History / Comment(s): LUNG CANCER Medications and Allergies Home Medications Medication Instructions Recorded Confirmed Type Calcium Citrate/Vitamin D3 1 tab PO DAILY 06/19/22 03/18/23 History [Calcium Cit 315-Vit D3 6.25 Mcg (250 Iu)] Cholecalciferol [Vitamin D3 (25 25 mcg PO DAILY 06/19/22 03/18/23 History Mcg = 1000 Iu)] Cyanocobalamin (Vitamin B-12) 1,000 mcg PO DAILY 06/19/22 03/18/23 History [Vitamin B-12] Levothyroxine Sodium [Synthroid] 150 mcg PO DAILY 06/19/22 03/18/23 History Magnesium Oxide [Mag-Ox] 400 mg PO BID 06/19/22 03/18/23 History Multivit-Min/Iron/Folic/Lutein 1 tab PO DAILY 06/19/22 03/18/23 History [Centrum Silver Women Tablet] Simvastatin [Zocor] 10 mg PO Q48H 06/19/22 03/18/23 History Sodium Bicarbonate Tab 650 mg PO DAILY 06/19/22 03/18/23 History amLODIPine [Norvasc] 10 mg PO DAILY 06/19/22 03/18/23 History calcitrioL [Calcitriol] 0.5 mcg PO SUTH 06/19/22 03/18/23 History Albuterol Sulfate [Albuterol 2 puff INHALATION RT-Q6H PRN 11/11/22 03/18/23 History Sulfate Hfa] Mv-Mn/Om3/Dha/Epa/Fish/Lut/Isaiah 1 cap PO DAILY 11/11/22 03/18/23 History [Ocuvite Adult 50 Plus Softgel] Pembrolizumab [Keytruda] 200 mg IV Q21D 11/11/22 03/18/23 History Apixaban [Eliquis] 2.5 mg PO BID 03/18/23 03/18/23 History Furosemide [Lasix] 20 mg PO BID 03/18/23 03/18/23 History Potassium Chloride ER [K-Dur 20] 20 meq PO DAILY 03/18/23 03/18/23 History Allergies Allergy/AdvReac Type Severity Reaction Status Date / Time No Known Allergies Allergy Verified 03/18/23 16:22 Surgical - Exam Vital Signs Temp Pulse Resp BP Pulse Ox 97.6 F 82 18 110/72 98 03/18/23 10:53 03/18/23 10:53 03/18/23 10:53 03/18/23 10:53 03/18/23 10:53 CONSTITUTIONAL: Awake and alert, appears comfortable, cooperative, well- developed, well-nourished, no pain, no acute distress EYES: Pupils equal, round, reactive to light, normal ocular movement ENT: Moist mucous membranes without oral lesions present NECK: No masses, no bruits, trachea midline RESPIRATORY: Lungs sounds very diminished in the right base. Respirations even, nonlabored. Currently on 2 L nasal cannula with oxygen saturation 99%. Strong cough CARDIOVASCULAR: S1, S2 present. Irregular rate and rhythm. Palpable peripher al pulses bilaterally. No edema present. No calf pain or tenderness noted GASTROINTESTINAL: Abdomen soft, nontender, nondistended without masses or organomegaly noted. There is no rebound or guarding present. Active bowel sounds present 4 quadrants. GENITOURINARY: Deferred INTEGUMENTARY: Skin is warm and dry NEUROLOGIC: Cranial nerves II through XII intact, normal coordination, no obvi ous motor or sensory deficits, speech is normal MUSKULOSKELETAL: Able to move all extremities, strength equal bilaterally, normal posture PSYCHIATRIC: Alert and oriented to person place and time, appropriate affect, intact judgment and insight Results - Labs 03/18/23 10:56 03/18/23 10:56 Abnormal Lab Results - Last 24 Hours (Table) 03/18/23 03/18/23 03/18/23 Range/Units 10:56 10:56 10:56 RBC 3.18 L (3.80-5.40) m/uL Hgb 9.4 L (11.4-16.0) gm/dL Hct 32.2 L (34.0-46.0) % MCV 101.3 H (80.0-100.0) fL MCHC 29.1 L (31.0-37.0) g/dL RDW 20.7 H (11.5-15.5) % Lymphocytes # 0.4 L (1.0-4.8) k/uL BUN 69 H (7-17) mg/dL Creatinine 2.15 H (0.52-1.04) mg/dL Glucose 101 H (74-99) mg/dL Urine Appearance Cloudy H (Clear) Urine Protein Trace H (Negative) Urine Blood Moderate H (Negative) Urine RBC 101 H (0-5) /hpf Urine WBC 9 H (0-5) /hpf Urine Bacteria Rare H (None) /hpf Urine Mucus Rare H (None) /hpf Diabetes panel 03/18/23 Range/Units 10:56 Sodium 144 (137-145) mmol/L Potassium 5.1 (3.5-5.1) mmol/L Chloride 106 (98-107) mmol/L Carbon Dioxide 25 (22-30) mmol/L BUN 69 H (7-17) mg/dL Creatinine 2.15 H (0.52-1.04) mg/dL Glucose 101 H (74-99) mg/dL Calcium 9.0 (8.4-10.2) mg/dL AST 24 (14-36) U/L ALT 22 (4-34) U/L Alkaline Phosphatase 69 (38-126) U/L Total Protein 6.8 (6.3-8.2) g/dL Albumin 3.5 (3.5-5.0) g/dL Calcium panel 03/18/23 Range/Units 10:56 Calcium 9.0 (8.4-10.2) mg/dL Albumin 3.5 (3.5-5.0) g/dL Pituitary panel 03/18/23 Range/Units 10:56 Sodium 144 (137-145) mmol/L Potassium 5.1 (3.5-5.1) mmol/L Chloride 106 (98-107) mmol/L Carbon Dioxide 25 (22-30) mmol/L BUN 69 H (7-17) mg/dL Creatinine 2.15 H (0.52-1.04) mg/dL Glucose 101 H (74-99) mg/dL Calcium 9.0 (8.4-10.2) mg/dL Adrenal panel 03/18/23 Range/Units 10:56 Sodium 144 (137-145) mmol/L Potassium 5.1 (3.5-5.1) mmol/L Chloride 106 (98-107) mmol/L Carbon Dioxide 25 (22-30) mmol/L BUN 69 H (7-17) mg/dL Creatinine 2.15 H (0.52-1.04) mg/dL Glucose 101 H (74-99) mg/dL Calcium 9.0 (8.4-10.2) mg/dL Total Bilirubin 0.5 (0.2-1.3) mg/dL AST 24 (14-36) U/L ALT 22 (4-34) U/L Alkaline Phosphatase 69 (38-126) U/L Total Protein 6.8 (6.3-8.2) g/dL Albumin 3.5 (3.5-5.0) g/dL - Imaging Chest x-ray: report reviewed, image reviewed EKG: image reviewed Assessment and Plan Assessment: Moderate right-sided pleural effusion Increased shortness of breath, secondary to above Acute on chronic kidney disease Metastatic lung cancer (adenocarcinoma) maintained on Keytruda (although patient states she's not actively receiving treatment currently) with recurrent malignant right-sided pleural effusion status post thoracentesis as well as placement of Pleurx catheter History of multiple myeloma (2009) History stem cell transplant (2010) Previous tobacco dependence Chronic atrial fibrillation on Eliquis for anticoagulation History of hypertension Hyperlipidemia Hypothyroid Plan: The patient was [facility] and [facility] Case will be discussed in detail with Dr. Wagoner. We will instill lytics and attempt to drain Pleurx catheter. BNP quite elevated, shortness of breath likely component of heart failure. Wean O2 as tolerated. Increase activity as tolerated. Medical management of other comorbidities per internal medicine, nephrology. More recommendations to follow. Thank you for this consult. Please call us with any further questions. I have personally seen and examined the patient, performed the documentation and the assessment and plan as written. Number of minutes spent on the visit: 30. KAY Fernandes
[2023-03-19 10:58] LABS: HCT 31.4 % (37.2-46.3); HGB 8.8 g/dL (12.0-15.0); MCH 28.7 pg (27.0-32.0); MCV 102.3 FL (80.0-97.0); Mean Platelet Volume 9.3 FL (9.5-12.2); NRBC Per 100 WBC 0 X 10*3/uL (0.00-0.01); Platelet Count 353 X 10*3/uL (140-440); RBC 3.07 X 10*6/uL (4.10-5.20); RDW 23.7 % (11.5-14.5); WBC 7.37 X 10*3/uL (4.50-10.00)
[2023-03-19 11:33] LABS: ALT 20 U/L (8-44); AST 22 U/L (13-35); Albumin 3.5 g/dL (3.8-4.9); Alkaline Phosphatase 61 U/L (41-126); BUN/Creat Ratio 29.59 Ratio (12.00-20.00); Blood Urea Nitrogen 65.1 mg/dL (9.0-27.0); Carbon Dioxide 24.4 mmol/L (21.6-31.8); Chloride 106 mmol/L (96-109); Globulin 2.7 g/dL (1.6-3.3); Glucose 85 mg/dL (70-110); Lipase 32 U/L (14-63); Magnesium 2.4 mg/dL (1.5-2.4); Phosphorus 5.4 mg/dL (2.4-5.1); Potassium 5.5 mmol/L (3.5-5.5); Sodium 141 mmol/L (135-145); Total Bilirubin 0.2 mg/dL (0.3-1.2); Total Protein 6.2 g/dL (6.2-8.2)
[2023-03-19 11:53] LABS: Basophils # (A) 0.05 X 10*3/uL (0.00-0.10); Basophils % (A) 0.7 %; Eosinophils # (A) 0.13 X 10*3/uL (0.04-0.35); Eosinophils % (A) 1.8 %; Lymphocytes # (A) 0.72 X 10*3/uL (0.90-5.00); Lymphocytes % (A) 9.8 %; Macrocytosis (M) 2+; Monocytes % (A) 12.2 %; Neutrophils # (A) 5.55 X 10*3/uL (1.80-7.70); Neutrophils % (A) 75.2 %
[2023-03-19 12:15] VITALS: BMI 25.0
[2023-03-19] MEDS: FUROSEMIDE 10 MG/ML 4 ML VIAL IV SCH ×2 (12:18→20:37)
--- NOTE | 2023-03-19 13:28 | P.NPCON ---
History of Present Illness - Reason for Consult acute renal failure - History of Present Illness Patient is an 82-year-old female with history of right lung cancer who was admitted to the hospital with complaints of shortness of breath. No history of fever or chills. Patient admitted to increased lower extremity swelling. Patient has been evaluated at our office for week kidney function previously. Underlying history of chronic kidney disease NKF stage IV with previous creatinine at 2.2 on 11/13/2022 and as low as 1.4 on 11/11/2022. Blood pressure has been on the lower side. Patient has been voiding. Maintained on Lasix prior to admission. History of right Pleurx catheter placement for recurrent malignant right pleural effusion. Apparently output from the Pleurx catheter was much decreased over the last 2 days prior to admission.. Review of Systems As per HPI 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., BASAL CELL SKIN CANCER., STATES "LOW KIDNEY FUNCTION"., RIGHT PLEURAL EFFUSION WITH THORACENTESIS X2, lung cancer History of Any Multi-Drug Resistant Organisms: None Reported Past Surgical History: Tubal Ligation Additional Past Surgical History / Comment(s): RIGHT ANKLE FX SURGERY WITH HARDWARE, CATARACTS, BONE MARROW TX'S .,STEM CELL TRANSPLANT 2010., THORACENTESIS X2; right-sided Pleurx catheter placement August 2022 Past Anesthesia/Blood Transfusion Reactions: No Reported Reaction Past Psychological History: No Psychological Hx Reported Smoking Status: Former smoker Past Alcohol Use History: Occasional Additional Past Alcohol Use History / Comment(s): QUIT SMOKING 1986, HX OF 1PPD, STARTED SMOKING AGE 20. Past Drug Use History: None Reported - Past Family History Father Family Medical History: Cancer Additional Family Medical History / Comment(s): LUNG CANCER Medications and Allergies Home Medications Medication Instructions Recorded Confirmed Type Calcium Citrate/Vitamin D3 1 tab PO DAILY 06/19/22 03/18/23 History [Calcium Cit 315-Vit D3 6.25 Mcg (250 Iu)] Cholecalciferol [Vitamin D3 (25 25 mcg PO DAILY 06/19/22 03/18/23 History Mcg = 1000 Iu)] Cyanocobalamin (Vitamin B-12) 1,000 mcg PO DAILY 06/19/22 03/18/23 History [Vitamin B-12] Levothyroxine Sodium [Synthroid] 150 mcg PO DAILY 06/19/22 03/18/23 History Magnesium Oxide [Mag-Ox] 400 mg PO BID 06/19/22 03/18/23 History Multivit-Min/Iron/Folic/Lutein 1 tab PO DAILY 06/19/22 03/18/23 History [Centrum Silver Women Tablet] Simvastatin [Zocor] 10 mg PO Q48H 06/19/22 03/18/23 History Sodium Bicarbonate Tab 650 mg PO DAILY 06/19/22 03/18/23 History amLODIPine [Norvasc] 10 mg PO DAILY 06/19/22 03/18/23 History calcitrioL [Calcitriol] 0.5 mcg PO SUTH 06/19/22 03/18/23 History Albuterol Sulfate [Albuterol 2 puff INHALATION RT-Q6H PRN 11/11/22 03/18/23 History Sulfate Hfa] Mv-Mn/Om3/Dha/Epa/Fish/Lut/Isaiah 1 cap PO DAILY 11/11/22 03/18/23 History [Ocuvite Adult 50 Plus Softgel] Pembrolizumab [Keytruda] 200 mg IV Q21D 11/11/22 03/18/23 History Apixaban [Eliquis] 2.5 mg PO BID 03/18/23 03/18/23 History Furosemide [Lasix] 20 mg PO BID 03/18/23 03/18/23 History Potassium Chloride ER [K-Dur 20] 20 meq PO DAILY 03/18/23 03/18/23 History Allergies Allergy/AdvReac Type Severity Reaction Status Date / Time No Known Allergies Allergy Verified 03/18/23 16:22 Physical Exam Vitals: Vital Signs Temp Pulse Pulse Resp BP BP Pulse Ox 03/19/23 08:07 92 03/19/23 07:54 92 03/19/23 07:11 98.3 F 62 18 119/65 99 03/19/23 01:47 98 F 87 105/64 93 L 03/18/23 21:20 98.1 F 76 107/64 90 L 03/18/23 20:00 101/66 03/18/23 19:13 82 18 103/72 98 03/18/23 16:18 90 19 126/79 94 L Intake and Output 03/18/23 03/19/23 03/19/23 22:59 06:59 14:59 Intake Total 500 Output Total 149 Balance 500 -149 Intake: Oral 500 Output: Post Void Residual 149 Other: # Voids 1 # Bowel Movements 2 Weight 68.039 kg 68.039 kg Patient is awake, comfortable, no acute distress Examination of the heart S1 and S2 Examination of the lungs bilateral breath sounds are heard Abdomen is soft , mild tenderness right upper abdomen Examination of lower extremities shows 1+ edema 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 Acute kidney injury, ATN. Blood pressure has been low. UA shows trace protein and moderate blood, WBCs 9. Rule out urine retention. Ultrasound of the kidneys on 11/12/2022 showed no structural. 2. Right lung cancer with right recurrent malignant pleural effusion status post Pleurx catheter placement 3. Anemia, multifactorial 4. Chronic kidney disease NKF stage IV with previous creatinine at 2.2 on 11/13/2022 but as low as 1.4 on 11/11/2022 5. Hyperkalemia associated with acute kidney injury rule out urine retention Plan: Continue with IV Lasix Repeat labs in a.m. Continue with calcitriol Decrease sodium bicarb. Thank you for the consultation. We will continue to follow the patient with you during her hospitalization.
[2023-03-19] MEDS: MORPHINE SULFATE 4 MG/ML SYRINGE IV PRN (21:48)
--- NOTE | 2023-03-19 21:54 | P.HPIM ---
History of Present Illness H&P Date: 03/19/23 Chief Complaint: Shortness of breath This is a pleasant 82-year-old patient who follows with Dr. Shiloh braswell. Restaurant Recruiter Dr. Kaur, oncologist Dr. Fisher, diagnosis of significant metastatic adenocarcinoma of the lung Recurrent right pleural effusion. Had a Pleurx catheter placed on August 2022. Another one was placed by Dr. Wagoner. Patient presented with her daughter and son-in-law at the bedside. Lives alone. Progressively getting weak. Decreased appetite. No pain. Short of breath. Increased swelling of the legs and left arm. Pleurx catheter has been int ermittently getting blocked. Cardiothoracic team was consulted. Denies any fevers or chills. Review of systems: GEN.: Tired, decreased appetite EYES: None HEENT: None NECK: None RESPIRATORY: baseline shortness of breath CARDIOVASCULAR: As above GASTROINTESTINAL: None GENITOURINARY: None MUSCULOSKELETAL: None LYMPHATICS: None HEMATOLOGICAL: None PSYCHIATRY: None NEUROLOGICAL: None Past medical history to include: Atrial fibrillation, adenocarcinoma metastatic of the lung, hypertension, ar thritis, hypothyroid, multiple myeloma with history of stem cell transplant 2010 with chemotherapy. Basal cell skin cancer, malignant right pleural effusion Social history: Lives alone. Alcohol occasionally. Smoked a pack a day since the age of 20 stopped in 1986. Physical examination: VITAL SIGNS: 98.1, 76, 18, 10 7 x 64, 90% on 4 L GENERAL: Eating up in a chair recliner, tired short of breath EYES: Pupils equal. Conjunctiva normal. HEENT: External appearance of nose and ears normal, oral cavity grossly normal. NECK: JVD not raised; masses not palpable. HEART: First and second heart sounds are normal; no edema. LUNGS: Respiratory rate raised; these breath sounds ABDOMEN: Soft, nontender, liver spleen not palpable, no masses palpable. Pleurx catheter in the epigastric area. PSYCH: Alert and oriented x3; mood and affect anxious MUSCULOSKELETAL:No Clubbing/cyanosis;muscles-grossly intact. OA Extremities: Swelling of the left arm. Lower extremity. INVESTIGATIONS, reviewed in the clinical context: 10/17/2022: White count 7.3 hemoglobin 8.8 platelets 353 potassium 5.5 BUN 65 creatinine 2.2 EKG tracing personally reviewed by pr-atrial fibrillation. Rate 82 Chest x-ray film personally reviewed by me-large right pleural effusion Assessment and plan: -Malignant right pleural fusion. Recurrent. Intermittent blocking off Pleurx catheter. In the thoracic team consulted. For possible tPA -Metastatic adenocarcinoma of the lung. Being followed by Dr. Cho. Did receive keytruda. Currently not on any current treatment. -Chronic kidney disease -Persistent atrial flutter fibrillation. Rate controlled. Eliquis. -Hypothyroid Synthroid 150 g a day -Hyperlipidemia Zocor 10 mg every 48 hours -Essential hypertension-blood pressure in the lower side hold amlodipine -DO NOT RESUSCITATE Advance care planning: [03/19/2023] This was done with the patient patient daughter at the bedside Shiloh is also the POA. Patient understands oral functional capacity is very poor. Cancer with advanced. Poor appetite. Pleurx is also getting blocked. After lengthy discussion patient wishes to pursue with hospice and look at options. I did tell him that does not probably safer patient to be by herself anymore. director workers compensation involved. Informational visit with hospice done. Time spent with this about 30 minutes 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., BASAL CELL SKIN CANCER., STATES "LOW KIDNEY FUNCTION"., RIGHT PLEURAL EFFUSION WITH THORACENTESIS X2, lung cancer History of Any Multi-Drug Resistant Organisms: None Reported Past Surgical History: Tubal Ligation Additional Past Surgical History / Comment(s): RIGHT ANKLE FX SURGERY WITH HARDWARE, CATARACTS, BONE MARROW TX'S .,STEM CELL TRANSPLANT 2010., THORACENTESIS X2; right-sided Pleurx catheter placement August 2022 Past Anesthesia/Blood Transfusion Reactions: No Reported Reaction Past Psychological History: No Psychological Hx Reported Smoking Status: Former smoker Past Alcohol Use History: Occasional Additional Past Alcohol Use History / Comment(s): QUIT SMOKING 1986, HX OF 1PPD, STARTED SMOKING AGE 20. Past Drug Use History: None Reported - Past Family History Father Family Medical History: Cancer Additional Family Medical History / Comment(s): LUNG CANCER Medications and Allergies Home Medications Medication Instructions Recorded Confirmed Type Calcium Citrate/Vitamin D3 1 tab PO DAILY 06/19/22 03/18/23 History [Calcium Cit 315-Vit D3 6.25 Mcg (250 Iu)] Cholecalciferol [Vitamin D3 (25 25 mcg PO DAILY 06/19/22 03/18/23 History Mcg = 1000 Iu)] Cyanocobalamin (Vitamin B-12) 1,000 mcg PO DAILY 06/19/22 03/18/23 History [Vitamin B-12] Levothyroxine Sodium [Synthroid] 150 mcg PO DAILY 06/19/22 03/18/23 History Magnesium Oxide [Mag-Ox] 400 mg PO BID 06/19/22 03/18/23 History Multivit-Min/Iron/Folic/Lutein 1 tab PO DAILY 06/19/22 03/18/23 History [Centrum Silver Women Tablet] Simvastatin [Zocor] 10 mg PO Q48H 06/19/22 03/18/23 History Sodium Bicarbonate Tab 650 mg PO DAILY 06/19/22 03/18/23 History amLODIPine [Norvasc] 10 mg PO DAILY 06/19/22 03/18/23 History calcitrioL [Calcitriol] 0.5 mcg PO SUTH 06/19/22 03/18/23 History Albuterol Sulfate [Albuterol 2 puff INHALATION RT-Q6H PRN 11/11/22 03/18/23 History Sulfate Hfa] Mv-Mn/Om3/Dha/Epa/Fish/Lut/Isaiah 1 cap PO DAILY 11/11/22 03/18/23 History [Ocuvite Adult 50 Plus Softgel] Pembrolizumab [Keytruda] 200 mg IV Q21D 11/11/22 03/18/23 History Apixaban [Eliquis] 2.5 mg PO BID 03/18/23 03/18/23 History Furosemide [Lasix] 20 mg PO BID 03/18/23 03/18/23 History Potassium Chloride ER [K-Dur 20] 20 meq PO DAILY 03/18/23 03/18/23 History Allergies Allergy/AdvReac Type Severity Reaction Status Date / Time No Known Allergies Allergy Verified 03/18/23 16:22 Physical Exam Vitals: Vital Signs Temp Pulse Pulse Resp BP BP Pulse Ox 03/19/23 08:07 92 03/19/23 07:54 92 03/19/23 07:11 98.3 F 62 18 119/65 99 03/19/23 01:47 98 F 87 105/64 93 L 03/18/23 21:20 98.1 F 76 107/64 90 L 03/18/23 20:00 101/66 03/18/23 19:13 82 18 103/72 98 03/18/23 16:18 90 19 126/79 94 L 03/18/23 10:53 97.6 F 82 18 110/72 98 Intake and Output 03/18/23 03/19/23 03/19/23 22:59 06:59 14:59 Intake Total 500 Balance 500 Intake: Oral 500 Other: # Voids 1 # Bowel Movements 2 Weight 68.039 kg Results CBC & Chem 7: 03/19/23 05:40 03/19/23 05:40 Labs: Abnormal Lab Results - Last 24 Hours (Table) 03/18/23 03/18/23 03/18/23 Range/Units 10:56 10:56 10:56 RBC 3.18 L (3.80-5.40) m/uL Hgb 9.4 L (11.4-16.0) gm/dL Hct 32.2 L (34.0-46.0) % MCV 101.3 H (80.0-100.0) fL MCHC 29.1 L (31.0-37.0) g/dL RDW 20.7 H (11.5-15.5) % Lymphocytes # 0.4 L (1.0-4.8) k/uL BUN 69 H (7-17) mg/dL Creatinine 2.15 H (0.52-1.04) mg/dL Glucose 101 H (74-99) mg/dL Urine Appearance Cloudy H (Clear) Urine Protein Trace H (Negative) Urine Blood Moderate H (Negative) Urine RBC 101 H (0-5) /hpf Urine WBC 9 H (0-5) /hpf Urine Bacteria Rare H (None) /hpf Urine Mucus Rare H (None) /hpf Thrombosis Risk Factor Assmnt - Choose All That Apply Each Risk Factor Represents 3 Points: Age 75 years or older Thrombosis Risk Factor Assessment Total Risk Factor Score: 3 Thrombosis Risk Factor Assessment Level: Moderate Risk
[2023-03-20] MEDS: LEVOTHYROXINE 75 MCG TAB PO SCH (05:40)
[2023-03-20] MEDS: FUROSEMIDE 10 MG/ML 4 ML VIAL IV SCH ×2 (08:29→20:28)
[2023-03-20] MEDS: CALCIUM CARB-VIT D 500 MG-5 MCG TAB PO SCH (08:29)
[2023-03-20] MEDS: CHOLECALCIFEROL 25 MCG (1000 IU) TABLET PO SCH (08:29)
[2023-03-20] MEDS: SODIUM BICARBONATE TAB 650 MG TAB PO SCH (08:29)
[2023-03-20] MEDS: MAGNESIUM OXIDE 400 MG TAB PO SCH ×2 (08:29→20:33)
[2023-03-20] MEDS: MULTIVITAMINS, THERA 1 EACH TAB PO SCH (08:29)
[2023-03-20] MEDS: CYANOCOBALAMIN 500 MCG TAB PO SCH (08:29)
[2023-03-20] MEDS: APIXABAN 2.5 MG TABLET PO SCH ×2 (08:29→20:33)
--- NOTE | 2023-03-20 13:50 | P.PN ---
Subjective Patient is seen in follow-up for chronic kidney disease stage IV. GFR near baseline. On IV Lasix. Admits to good urine output. Vital signs are stable. General: No acute distress. HEENT: Head exam is unremarkable. On nasal cannula. LUNGS: Scattered rhonchi. HEART: Rate and Rhythm are regular. ABDOMEN: Nontender. EXTREMITITES: 2+ edema. Objective - Vital Signs Vital signs: Vital Signs Temp 96.8 F L 03/20/23 07:19 Pulse 84 03/20/23 07:19 Resp 18 03/20/23 07:19 BP 137/78 03/20/23 07:19 Pulse Ox 95 03/20/23 07:19 FiO2 Intake & Output 03/19/23 03/20/23 03/20/23 18:59 06:59 18:59 Output Total 607 Balance -607 Weight 68.039 kg Output: Drainage 50 Right Chest 50 Urine 300 Post Void Residual 257 Other: # Voids 3 1 # Bowel Movements 1 - Labs CBC & Chem 7: 03/19/23 05:40 03/19/23 05:40 Assessment and Plan Plan: Assessment: 1. Chronic kidney disease stage IV with baseline creatinine near 2. Patient with positive c-ANCA titers but refused kidney biopsy and rheumatology referral. Kidney ultrasound from October 2022 showed atrophic kidneys without hydronephrosis. 2. Volume overload. 3. Metastatic lung cancer with malignant pleural effusion. He has Pleurx catheter. 4. History of multiple myeloma status post an ultrasound. 5. Anemia of chronic kidney disease. Rule out iron deficiency. 6. 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 Plan: Maintain IV Lasix. Poor prognosis. Hospice being considered.
[2023-03-20] MEDS: MORPHINE SULFATE 4 MG/ML SYRINGE IV PRN (15:02)
--- NOTE | 2023-03-20 18:48 | P.PN ---
Progress Note - Text Progress Note Date: 03/20/23 Chief Complaint: Shortness of breath This is a pleasant 82-year-old patient who follows with Dr. Shiloh braswell. Title I Math Tutor Dr. Kaur, oncologist Dr. Fisher, diagnosis of significant metastatic adenocarcinoma of the lung Recurrent right pleural effusion. Had a Pleurx catheter placed on August 2022. Another one was placed by Dr. Wagoner. Patient presented with her daughter and son-in-law at the bedside. Lives alone. Progressively getting weak. Decreased appetite. No pain. Short of breath. Increased swelling of the legs and left arm. Pleurx catheter has been intermittently getting blocked. Cardiothoracic team was consulted. Denies any fevers or chills. 03/20/2023: Spoke with Paula from cardiothoracic team. They will unable to declot the Pleurx. TPA was tried. No other options. Spoke at length the patient's daughter and the patient. Options extremely limited. Patient's history to look into hospice. Communicative at social problems specialist. Late in the day I was [facility] Patient remained short of breath at rest. Active Medications Acetaminophen (Acetaminophen Tab 325 Mg Tab) 650 mg PO Q6HR PRN PRN Reason: Mild Pain or Fever > 100.5 Last Admin: 03/19/23 20:37 Dose: 650 mg Albuterol Sulfate (Albuterol Nebulized 2.5 Mg/3 Ml) 2.5 mg INHALATION RT-Q6H PRN PRN Reason: Shortness Of Breath Last Admin: 03/19/23 07:54 Dose: 2.5 mg Apixaban (Apixaban 2.5 Mg Tablet) 2.5 mg PO BID SHANTELL; Protocol Last Admin: 03/20/23 08:29 Dose: 2.5 mg Calcium Carbonate (Calcium Carb-Vit D 500 Mg-5 Mcg Tab) 1 each PO DAILY SHANTELL Last Admin: 03/20/23 08:29 Dose: 1 each Furosemide (Furosemide 10 Mg/Ml 4 Ml Vial) 40 mg IV Q12HR SHANTELL Last Admin: 03/20/23 08:29 Dose: 40 mg Cefazolin Sodium 2 gm/ Sodium (Chloride) 50 mls @ 100 mls/hr IVPB Q12HR@0000,1200 SHANTELL; Protocol Last Admin: 03/20/23 11:43 Dose: 100 mls/hr Levothyroxine Sodium (Levothyroxine 75 Mcg Tab) 150 mcg PO DAILY@0630 [facility] Last Admin: 03/20/23 05:40 Dose: 150 mcg Magnesium Oxide (Magnesium Oxide 400 Mg Tab) 400 mg PO BID [facility] Last Admin: 03/20/23 08:29 Dose: 400 mg Morphine Sulfate (Morphine Sulfate 4 Mg/Ml Syringe) 4 mg IV Q4HR PRN PRN Reason: Severe Pain (Scale 7 to 10) Last Admin: 03/20/23 15:02 Dose: 4 mg Naloxone HCl (Naloxone 0.4 Mg/Ml 1 Ml Vial) 0.2 mg IV Q2M PRN PRN Reason: Opioid Reversal Ondansetron HCl (Ondansetron 4 Mg/2 Ml Vial) 4 mg IVP Q8HR PRN PRN Reason: Nausea And Vomiting Sodium Bicarbonate (Sodium Bicarbonate Tab 650 Mg Tab) 325 mg PO DAILY [facility] Last Admin: 03/20/23 08:29 Dose: 325 mg Past medical history to include: Atrial fibrillation, adenocarcinoma metastatic of the lung, hypertension, arthritis, hypothyroid, multiple myeloma with history of stem cell transplant 2010 with chemotherapy. Basal cell skin cancer, malignant right pleural ef fusion Social history: Lives alone. Alcohol occasionally. Smoked a pack a day since the age of 20 stopped in 1986. Physical examination: VITAL SIGNS: 98.6, 95, 24, 106/63, 90% on 4 L GENERAL: A complete chair, tired, short of breath at rest EYES: Pupils equal. Conjunctiva normal. HEENT: External appearance of nose and ears normal, oral cavity grossly normal. NECK: JVD not raised; masses not palpable. HEART: First and second heart sounds are normal; no edema. LUNGS: Respiratory rate raised; decreased breath sounds ABDOMEN: Soft, nontender, liver spleen not palpable, no masses palpable. Pleurx catheter in the epigastric area. PSYCH: Alert and oriented x3; mood and affect anxious MUSCULOSKELETAL:No Clubbing/cyanosis;muscles-grossly intact. OA Extremities: Swelling of the left arm. Lower extremity. INVESTIGATIONS, reviewed in the clinical context: 10/17/2022: White count 7.3 hemoglobin 8.8 platelets 353 potassium 5.5 BUN 65 creatinine 2.2 EKG tracing personally reviewed by me-atrial fibrillation. Rate 82 Chest x-ray film personally reviewed by me-large right pleural effusion Assessment and plan: -Malignant right pleural fusion. Recurrent. Intermittent blocking off Pleurx catheter. Consent cardiothoracic team. Failed TPA. No other options really available. -Metastatic adenocarcinoma of the lung. Being followed by Dr. Cho. Relevant advanced and progressive Did receive keytruda. Currently not on any current treatment. -Chronic kidney disease -Persistent atrial flutter fibrillation. Rate controlled. Eliquis. -Hypothyroid Synthroid 150 g a day -Hyperlipidemia Zocor 10 mg every 48 hours -Essential hypertension-blood pressure in the lower side hold amlodipine -DO NOT RESUSCITATE Advance care planning: [03/19/2023] This was done with the patient patient daughter at the bedside Shiloh is also the POA. Patient understands oral functional capacity is very poor. Cancer with advanced. Poor appetite. Pleurx is also getting blocked. After lengthy discussion patient wishes to pursue with hospice and look at options. I did tell him that does not probably safer patient to be by herself anymore. pastoral worker involved. Informational visit with hospice done. Time spent with this about 30 minutes Plan for patient to go to hospice tomorrow. Patient's medical care is being the deescalated. Except to keep her comfortable. Question also to the daughter the patient at length. 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., BASAL CELL SKIN CANCER., STATES "LOW KIDNEY FUNCTION"., RIGHT PLEURAL EFFUSION WITH THORACENTESIS X2, lung cancer History of Any Multi-Drug Resistant Organisms: None Reported Past Surgical History: Tubal Ligation Additional Past Surgical History / Comment(s): RIGHT ANKLE FX SURGERY WITH HARDWARE, CATARACTS, BONE MARROW TX'S .,STEM CELL TRANSPLANT 2010., THORACENTESIS X2; right-sided Pleurx catheter placement August 2022 Past Anesthesia/Blood Transfusion Reactions: No Reported Reaction Past Psychological History: No Psychological Hx Reported Smoking Status: Former smoker Past Alcohol Use History: Occasional Additional Past Alcohol Use History / Comment(s): QUIT SMOKING 1986, HX OF 1PPD, STARTED SMOKING AGE 20. Past Drug Use History: None Reported
[2023-03-21 03:32] LABS: % Iron Saturation 3.04 (12.00-45.00)
[2023-03-21] MEDS: LEVOTHYROXINE 75 MCG TAB PO SCH (05:34)
[2023-03-21] MEDS: APIXABAN 2.5 MG TABLET PO SCH (08:06)
[2023-03-21] MEDS: SODIUM BICARBONATE TAB 650 MG TAB PO SCH (08:06)
[2023-03-21] MEDS: CALCIUM CARB-VIT D 500 MG-5 MCG TAB PO SCH (08:10)
[2023-03-21] MEDS: MAGNESIUM OXIDE 400 MG TAB PO SCH (08:10)
[2023-03-21] MEDS: FUROSEMIDE 10 MG/ML 4 ML VIAL IV SCH (09:21)
[2023-03-21 09:38] VITALS: BP 102/61; PULSE 91; RESP 17; TEMP 98.3
[2023-03-21 10:07] LABS: BUN/Creat Ratio 26.57 Ratio (12.00-20.00); Blood Urea Nitrogen 74.4 mg/dL (9.0-27.0); Glucose 118 mg/dL (70-110); Magnesium 2.5 mg/dL (1.5-2.4)
[2023-03-21 10:08] LABS: Carbon Dioxide 22.1 mmol/L (21.6-31.8); Chloride 106 mmol/L (96-109); Potassium 5.8 mmol/L (3.5-5.5); Sodium 143 mmol/L (135-145)
[2023-03-21] MEDS: MORPHINE SULFATE 4 MG/ML SYRINGE IV PRN (10:32)
--- NOTE | 2023-03-21 11:37 | P.PN ---
Subjective Patient is seen in follow-up for chronic kidney disease stage IV. Renal function worse from diuresis. On IV Lasix. Family present at bedside. Vital signs are stable. General: Patient appears in respiratory distress. HEENT: Head exam is unremarkable. On nasal cannula. LUNGS: Scattered rhonchi. HEART: Rate and Rhythm are regular. ABDOMEN: Nontender. EXTREMITITES: 2+ edema. Objective - Vital Signs Vital signs: Vital Signs Temp 98.3 F 03/21/23 07:00 Pulse 91 03/21/23 07:00 Resp 17 03/21/23 07:00 BP 102/61 03/21/23 07:00 Pulse Ox 91 L 03/21/23 07:00 FiO2 - Labs CBC & Chem 7: 03/19/23 05:40 03/21/23 06:27 Labs: Abnormal Lab Results - Last 24 Hours (Table) 03/19/23 03/21/23 Range/Units 05:54 06:27 Potassium 5.8 H (3.5-5.5) mmol/L Anion Gap 14.90 H (4.00-12.00) mmol/L BUN 74.4 H (9.0-27.0) mg/dL Creatinine 2.8 H (0.6-1.5) mg/dL Est GFR (CKD-EPI) 17 L (>=60) BUN/Creatinine Ratio 26.57 H (12.00-20.00) Ratio Glucose 118 H (70-110) mg/dL Magnesium 2.5 H (1.5-2.4) mg/dL Iron 10 L (50-170) UG/DL % Saturation 3.04 L (12.00-45.00) Assessment and Plan Plan: Assessment: 1. Chronic kidney disease stage IV with baseline creatinine near 2. Patient with positive c-ANCA titers but refused kidney biopsy and rheumatology referral. Kidney ultrasound from October 2022 showed atrophic kidneys without hydronephrosis. 2. Volume overload. 3. Metastatic lung cancer with malignant pleural effusion. He has Pleurx catheter. 4. History of multiple myeloma status post stem cell transplant. 5. Anemia of chronic kidney disease. 6. 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 Plan: Patient and family have decided to proceed with hospice/comfort measures. Please call with any questions or concerns.
--- NOTE | 2023-03-21 22:59 | P.DS ---
Providers Date of admission: 03/19/23 11:09 Expected date of discharge: 03/21/23 Attending physician: Alex Milligan Consults: 03/18/23 18:25 Consult Physician Routine Consulting Provider: Michael Wagoner Consult Reason/Comments: known Do you want consulting provider notified?: Yes Consult Physician Routine Consulting Provider: Hue Graff Consult Reason/Comments: ARF Do you want consulting provider notified?: Yes Primary care physician: Shiloh Braswell [facility] Course: Chief Complaint: Shortness of breath This is a pleasant 82-year-old patient who follows with Dr. Shiloh braswell. Child Protective Investigator Dr. Kaur, oncologist Dr. Fisher, diagnosis of significant metastatic adenocarcinoma of the lung Recurrent right pleural effusion. Had a Pleurx catheter placed on August 2022. Another one was placed by Dr. Wagoner. Patient presented with her daughter and son-in-law at the bedside. Lives alone. Progressively getting weak. Decreased appetite. No pain. Short of breath. Increased swelling of the legs and left arm. Pleurx catheter has been intermittently getting blocked. Cardiothoracic team was consulted. Denies any fevers or chills. 03/20/2023: Spoke with Paula from cardiothoracic team. They will unable to declot the Pleurx. TPA was tried. No other options. Spoke at length the patient's daughter and the patient. Options extremely limited. Patient's history to look into hospice. Communicative at director social. Late in the day I was informed that patient going to [facility] hospice tomorrow. Patient remained short of breath at rest. 03/21/2023: This morning patient is bun restated further deteriorated. Patient qualified for inpatient hospice. Hospice consulted. Patient be switched to [facility]. Comfort measures initiated. Discussed with the family including the daughter the bedside. Discussion and discharge planning more than 35 minutes Past medical history to include: Atrial fibrillation, adenocarcinoma metastatic of the lung, hypertension, arthritis, hypothyroid, multiple myeloma with history of stem cell transplant 2010 with chemotherapy. Basal cell skin cancer, malignant right pleural effusion Social history: Lives alone. Alcohol occasionally. Smoked a pack a day since the age of 20 stopped in 1986. Physical examination: VITAL SIGNS: 8.3, 91, 17, 102/61, 91% on 5 L GENERAL: In bed very short of breath EYES: Pupils equal. Conjunctiva normal. HEENT: External appearance of nose and ears normal, oral cavity grossly normal. NECK: JVD not raised; masses not palpable. HEART: First and second heart sounds are normal; no edema. LUNGS: Respiratory rate is, decreased breath sounds ABDOMEN: Soft, nontender, liver spleen not palpable, no masses palpable. Pleurx catheter in the epigastric area. PSYCH: Lethargic MUSCULOSKELETAL:No Clubbing/cyanosis;muscles-grossly intact. OA Extremities: Swelling of the left arm. Lower extremity. INVESTIGATIONS, reviewed in the clinical context: 10/17/2022: White count 7.3 hemoglobin 8.8 platelets 353 potassium 5.5 BUN 65 creatinine 2.2 EKG tracing personally reviewed by me-atrial fibrillation. Rate 82 Chest x-ray film personally reviewed by me-large right pleural effusion Assessment and plan: -Malignant right pleural fusion. Recurrent. Intermittent blocking off Pleurx catheter. Consent cardiothoracic team. Failed TPA. No other options really available. -Metastatic adenocarcinoma of the lung. Being followed by Dr. Cho. Relevant advanced and progressive Did receive keytruda. Currently not on any current treatment. -Chronic kidney disease -Persistent atrial flutter fibrillation. Rate controlled. Eliquis. -Hypothyroid Synthroid 150 g a day -Hyperlipidemia Zocor 10 mg every 48 hours -Essential hypertension-blood pressure in the lower side hold amlodipine -DO NOT RESUSCITATE Advance care planning: [03/19/2023] This was done with the patient patient daughter at the bedside Shiloh is also the POA. Patient understands oral functional capacity is very poor. Cancer with advanced. Poor appetite. Pleurx is also getting blocked. After lengthy discussion patient wishes to pursue with hospice and look at options. I did tell him that does not probably safer patient to be by herself anymore. extrusion utility worker involved. Informational visit with hospice done. Time spent with this about 30 minutes Disposition: GIP/inpatient hospice 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., BASAL CELL SKIN CANCER., STATES "LOW KIDNEY FUNCTION"., RIGHT PLEURAL EFFUSION WITH THORACENTESIS X2, lung cancer History of Any Multi-Drug Resistant Organisms: None Reported Past Surgical History: Tubal Ligation Additional Past Surgical History / Comment(s): RIGHT ANKLE FX SURGERY WITH HARDWARE, CATARACTS, BONE MARROW TX'S .,STEM CELL TRANSPLANT 2010., THORACENTESIS X2; right-sided Pleurx catheter placement August 2022 Past Anesthesia/Blood Transfusion Reactions: No Reported Reaction Past Psychological History: No Psychological Hx Reported Smoking Status: Former smoker Past Alcohol Use History: Occasional Additional Past Alcohol Use History / Comment(s): QUIT SMOKING 1986, HX OF 1PPD, STARTED SMOKING AGE 20. Past Drug Use History: None Reported Plan - Discharge Summary New Discharge Prescriptions: No Action Sodium Bicarbonate Tab 650 mg PO DAILY Simvastatin [Zocor] 10 mg PO Q48H Cholecalciferol [Vitamin D3 (25 Mcg = 1000 Iu)] 25 mcg PO DAILY Cyanocobalamin (Vitamin B-12) [Vitamin B-12] 1,000 mcg PO DAILY Multivit-Min/Iron/Folic/Lutein [Centrum Silver Women Tablet] 1 tab PO DAILY Calcium Citrate/Vitamin D3 [Calcium Cit 315-Vit D3 6.25 Mcg (250 Iu)] 1 tab PO DAILY Mv-Mn/Om3/Dha/Epa/Fish/Lut/Isaiah [Ocuvite Adult 50 Plus Softgel] 1 cap PO DAILY Albuterol Sulfate [Albuterol Sulfate Hfa] 2 puff INHALATION RT-Q6H PRN PRN Reason: Shortness Of Breath Pembrolizumab [Keytruda] 200 mg IV Q21D Apixaban [Eliquis] 2.5 mg PO BID amLODIPine [Norvasc] 10 mg PO DAILY Levothyroxine Sodium [Synthroid] 150 mcg PO DAILY calcitrioL [Calcitriol] 0.5 mcg PO SUTH Magnesium Oxide [Mag-Ox] 400 mg PO BID Furosemide [Lasix] 20 mg PO BID Potassium Chloride ER [K-Dur 20] 20 meq PO DAILY Discharge Medication List Calcium Citrate/Vitamin D3 [Calcium Cit 315-Vit D3 6.25 Mcg (250 Iu)] 1 tab PO DAILY 06/19/22 [History] Cholecalciferol [Vitamin D3 (25 Mcg = 1000 Iu)] 25 mcg PO DAILY 06/19/22 [History] Cyanocobalamin (Vitamin B-12) [Vitamin B-12] 1,000 mcg PO DAILY 06/19/22 [History] Levothyroxine Sodium [Synthroid] 150 mcg PO DAILY 06/19/22 [History] Magnesium Oxide [Mag-Ox] 400 mg PO BID 06/19/22 [History] Multivit-Min/Iron/Folic/Lutein [Centrum Silver Women Tablet] 1 tab PO DAILY 06/19/22 [History] Simvastatin [Zocor] 10 mg PO Q48H 06/19/22 [History] Sodium Bicarbonate Tab 650 mg PO DAILY 06/19/22 [History] amLODIPine [Norvasc] 10 mg PO DAILY 06/19/22 [History] calcitrioL [Calcitriol] 0.5 mcg PO SUTH 06/19/22 [History] Albuterol Sulfate [Albuterol Sulfate Hfa] 2 puff INHALATION RT-Q6H PRN 11/11/22 [History] Mv-Mn/Om3/Dha/Epa/Fish/Lut/Isaiah [Ocuvite Adult 50 Plus Softgel] 1 cap PO DAILY 11/11/22 [History] Pembrolizumab [Keytruda] 200 mg IV Q21D 11/11/22 [History] Apixaban [Eliquis] 2.5 mg PO BID 03/18/23 [History] Furosemide [Lasix] 20 mg PO BID 03/18/23 [History] Potassium Chloride ER [K-Dur 20] 20 meq PO DAILY 03/18/23 [History] Follow up Appointment(s)/Referral(s): Shiloh Braswell DO [Primary Care Provider] - 1-2 days Activity/Diet/Wound Care/Special Instructions: D/C at noon to [facility] home, when d/c is in pleaase call for amb ulance ride. Discharge Disposition: HOME WITH HOSPICE
== END 2023-03-21 11:21 | disposition hospice, home (50) | DRG 919 ==
LOC: EC 10:12 → 4SSUR 18:28 → OBSVTOIN 03-19 11:09
PROVIDERS: ADMIT Hospitalist; ATTEND Hospitalist
DX: T85.698A Other mechanical complication of other specified internal prosthetic devices, implants and grafts, initial encounter (principal); N17.0 Acute kidney failure with tubular necrosis; C34.91 Malignant neoplasm of unspecified part of right bronchus or lung; J91.0 Malignant pleural effusion; I48.20 Chronic atrial fibrillation, unspecified; I48.92 Unspecified atrial flutter; N18.4 Chronic kidney disease, stage 4 (severe); C90.00 Multiple myeloma not having achieved remission; Z66 Do not resuscitate; I13.0 Hypertensive heart and chronic kidney disease with heart failure and stage 1 through stage 4 chronic kidney disease, or unspecified chronic kidney disease; Z51.5 Encounter for palliative care; Z94.84 Stem cells transplant status; E87.5 Hyperkalemia; Z79.01 Long term (current) use of anticoagulants; D63.1 Anemia in chronic kidney disease; E78.5 Hyperlipidemia, unspecified; E87.70 Fluid overload, unspecified; E03.9 Hypothyroidism, unspecified; Z79.890 Hormone replacement therapy; Y84.8 Other medical procedures as the cause of abnormal reaction of the patient, or of later complication, without mention of misadventure at the time of the procedure; I50.9 Heart failure, unspecified; M19.90 Unspecified osteoarthritis, unspecified site; M89.8X9 Other specified disorders of bone, unspecified site; Z79.899 Other long term (current) drug therapy; Z85.118 Personal history of other malignant neoplasm of bronchus and lung; Z87.891 Personal history of nicotine dependence; Z85.828 Personal history of other malignant neoplasm of skin
CPT/HCPCS: 36415; 71046; 80048; 80053; 81001; 82728; 83540; 83550; 83605; 83690; 83735; 83880; 84100; 84484; 85025; 85610; 85730; 93005; 94640; 99285

== ENCOUNTER 2023-03-21 10:55 | Inpatient (IN) | payer MEDICAID ==
[2023-03-21] MEDS ORDERED: GLYCOPYRROLATE 0.2 MG/ML 2 ML VIAL IVP PRN (10:57)
[2023-03-21] MEDS ORDERED: LORazepam 2 MG/ML INJ IV PRN (10:57)
[2023-03-21] MEDS ORDERED: MORPHINE SULFATE 4 MG/ML SYRINGE IV PRN (10:57)
[2023-03-21] MEDS ORDERED: ATROPINE OPHTH SOLN 1% 5ML BTL SUBLINGUAL PRN (10:57)
[2023-03-21] MEDS ORDERED: MORPHINE SULFATE (100 MG/2 ML) 100 MG in SODIUM CHLORIDE 0.9% 100 ML IV SCH (12:00)
[2023-03-21 17:26] VITALS: RESP 24
--- NOTE | 2023-03-21 23:02 | P.DS ---
Providers Date of admission: 03/21/23 12:04 Expected date of discharge: 03/21/23 (Patient ) Attending physician: Alex Milligan Primary care physician: Shiloh Braswell [facility] Course: Chief Complaint: Shortness of breath This is a pleasant 82-year-old patient who follows with Dr. Shiloh braswell. County Sheriff Dr. Kaur, oncologist Dr. Fisher, diagnosis of significant metastatic adenocarcinoma of the lung Recurrent right pleural effusion. Had a Pleurx catheter placed on August 2022. Another one was placed by Dr. Wagoner. Patient presented with her daughter and son-in-law at the bedside. Lives alone. Progressively getting weak. Decreased appetite. No pain. Short of breath. Increased swelling of the legs and left arm. Pleurx catheter has been intermittently getting blocked. Cardiothoracic team was consulted. Denies any fevers or chills. 03/20/2023: Spoke with Paula from cardiothoracic team. They will unable to declot the Pleurx. TPA was tried. No other options. Spoke at length the patient's daughter and the patient. Options extremely limited. Patient's history to look into hospice. Communicative at social economist. Late in the day I was informed that patient going to [facility] hospice tomorrow. Patient remained short of breath at rest. 03/21/2023: This morning patient is bun restated further deteriorated. Patient qualified for inpatient hospice. Hospice consulted. Patient be switched to GIP. Comfort measures initiated. Discussed with the family including the daughter the bedside. Later patient . Past medical history to include: Atrial fibrillation, adenocarcinoma metastatic of the lung, hypertension, arthritis, hypothyroid, multiple myeloma with history of stem cell transplant 2010 with chemotherapy. Basal cell skin cancer, malignant right pleural effusion Social history: Lives alone. Alcohol occasionally. Smoked a pack a day since the age of 20 stopped in 1986. INVESTIGATIONS, reviewed in the clinical context: 10/17/2022: White count 7.3 hemoglobin 8.8 platelets 353 potassium 5.5 BUN 65 creatinine 2.2 EKG tracing personally reviewed by me-atrial fibrillation. Rate 82 Chest x-ray film personally reviewed by me-large right pleural effusion Cause of : Metastatic adenocarcinoma of the lung Assessment and plan: -Malignant right pleural fusion. Recurrent. Intermittent blocking off Pleurx catheter. -Metastatic adenocarcinoma of the lung. Being followed by Dr. Cho. Relevant advanced and progressive Did receive keytruda. Currently not on any current treatment. -Chronic kidney disease -Persistent atrial flutter fibrillation. Rate controlled. Eliquis. -Hypothyroid -Hyperlipidemia -Essential hypertension-blood pressure in the lower side -DO NOT RESUSCITATE Advance care planning: [03/19/2023] This was done with the patient patient daughter at the bedside Shiloh is also the POA. Patient understands oral functional capacity is very poor. Cancer with advanced. Poor appetite. Pleurx is also getting blocked. After lengthy discussion patient wishes to pursue with hospice and look at options. I did tell him that does not probably safer patient to be by herself anymore. health worker involved. Informational visit with hospice done. Time spent with this about 30 minutes Disposition: GEN 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., BASAL CELL SKIN CANCER., STATES "LOW KIDNEY FUNCTION"., RIGHT PLEURAL EFFUSION WITH THORACENTESIS X2, lung cancer History of Any Multi-Drug Resistant Organisms: None Reported Past Surgical History: Tubal Ligation Additional Past Surgical History / Comment(s): RIGHT ANKLE FX SURGERY WITH HARD AGUIAR, CATARACTS, BONE MARROW TX'S .,STEM CELL TRANSPLANT 2010., THORACENTESIS X2; right-sided Pleurx catheter placement August 2022 Past Anesthesia/Blood Transfusion Reactions: No Reported Reaction Past Psychological History: No Psychological Hx Reported Smoking Status: Former smoker Past Alcohol Use History: Occasional Additional Past Alcohol Use History / Comment(s): QUIT SMOKING 1986, HX OF 1PPD, STARTED SMOKING AGE 20. Past Drug Use History: None Reported Plan - Discharge Summary New Discharge Prescriptions: No Action Sodium Bicarbonate Tab 650 mg PO DAILY Simvastatin [Zocor] 10 mg PO Q48H Cholecalciferol [Vitamin D3 (25 Mcg = 1000 Iu)] 25 mcg PO DAILY Cyanocobalamin (Vitamin B-12) [Vitamin B-12] 1,000 mcg PO DAILY Multivit-Min/Iron/Folic/Lutein [Centrum Silver Women Tablet] 1 tab PO DAILY Calcium Citrate/Vitamin D3 [Calcium Cit 315-Vit D3 6.25 Mcg (250 Iu)] 1 tab PO DAILY Mv-Mn/Om3/Dha/Epa/Fish/Lut/Isaiah [Ocuvite Adult 50 Plus Softgel] 1 cap PO DAILY Albuterol Sulfate [Albuterol Sulfate Hfa] 2 puff INHALATION RT-Q6H PRN PRN Reason: Shortness Of Breath Pembrolizumab [Keytruda] 200 mg IV Q21D Apixaban [Eliquis] 2.5 mg PO BID amLODIPine [Norvasc] 10 mg PO DAILY Levothyroxine Sodium [Synthroid] 150 mcg PO DAILY calcitrioL [Calcitriol] 0.5 mcg PO SUTH Magnesium Oxide [Mag-Ox] 400 mg PO BID Furosemide [Lasix] 20 mg PO BID Potassium Chloride ER [K-Dur 20] 20 meq PO DAILY Discharge Medication List Calcium Citrate/Vitamin D3 [Calcium Cit 315-Vit D3 6.25 Mcg (250 Iu)] 1 tab PO DAILY 06/19/22 [History] Cholecalciferol [Vitamin D3 (25 Mcg = 1000 Iu)] 25 mcg PO DAILY 06/19/22 [History] Cyanocobalamin (Vitamin B-12) [Vitamin B-12] 1,000 mcg PO DAILY 06/19/22 [History] Levothyroxine Sodium [Synthroid] 150 mcg PO DAILY 06/19/22 [History] Magnesium Oxide [Mag-Ox] 400 mg PO BID 06/19/22 [History] Multivit-Min/Iron/Folic/Lutein [Centrum Silver Women Tablet] 1 tab PO DAILY 06/19/22 [History] Simvastatin [Zocor] 10 mg PO Q48H 06/19/22 [History] Sodium Bicarbonate Tab 650 mg PO DAILY 06/19/22 [History] amLODIPine [Norvasc] 10 mg PO DAILY 06/19/22 [History] calcitrioL [Calcitriol] 0.5 mcg PO SUTH 06/19/22 [History] Albuterol Sulfate [Albuterol Sulfate Hfa] 2 puff INHALATION RT-Q6H PRN 11/11/22 [History] Mv-Mn/Om3/Dha/Epa/Fish/Lut/Isaiah [Ocuvite Adult 50 Plus Softgel] 1 cap PO DAILY 11/11/22 [History] Pembrolizumab [Keytruda] 200 mg IV Q21D 11/11/22 [History] Apixaban [Eliquis] 2.5 mg PO BID 03/18/23 [History] Furosemide [Lasix] 20 mg PO BID 03/18/23 [History] Potassium Chloride ER [K-Dur 20] 20 meq PO DAILY 03/18/23 [History] Discharge Disposition: - Preliminary Cause of Preliminary Cause of : Lung cancer
== END 2023-03-21 21:00 | disposition expired | DRG 951 ==
LOC: 4SSUR 12:04
PROVIDERS: ADMIT Hospitalist; ATTEND Hospitalist
DX: Z51.5 Encounter for palliative care (principal); C34.90 Malignant neoplasm of unspecified part of unspecified bronchus or lung; C79.9 Secondary malignant neoplasm of unspecified site; I48.19 Other persistent atrial fibrillation; C90.00 Multiple myeloma not having achieved remission; I48.92 Unspecified atrial flutter; J91.0 Malignant pleural effusion; Z94.84 Stem cells transplant status; N18.9 Chronic kidney disease, unspecified; C44.91 Basal cell carcinoma of skin, unspecified; E03.9 Hypothyroidism, unspecified; E78.5 Hyperlipidemia, unspecified; I12.9 Hypertensive chronic kidney disease with stage 1 through stage 4 chronic kidney disease, or unspecified chronic kidney disease; M19.90 Unspecified osteoarthritis, unspecified site; Z66 Do not resuscitate; Z87.891 Personal history of nicotine dependence